=== PATIENT | female | born 1940 | race Caucasian/White ===

== ENCOUNTER → 2019-03-13 14:03 | Outpatient (BNVA) | payer MEDICARE, OTHER, MEDICAID, SELFPAY | PROVIDERS: Family Provider Nurse Practitioner; PCP Nurse Practitioner; Visit Provider Nurse Practitioner Family | DX: N39.0 Urinary tract infection, site not specified (principal); B37.9 Candidiasis, unspecified; N39.41 Urge incontinence | CPT/HCPCS: 81001; 87077; 87086; 87186 ==

== ENCOUNTER → 2019-09-21 15:45 | Outpatient (BNVA) | payer MEDICARE, OTHER, MEDICAID, SELFPAY | PROVIDERS: Family Provider Nurse Practitioner; PCP Nurse Practitioner; Visit Provider Nurse Practitioner | DX: E11.69 Type 2 diabetes mellitus with other specified complication (principal); E66.01 Morbid (severe) obesity due to excess calories; I10 Essential (primary) hypertension; E11.65 Type 2 diabetes mellitus with hyperglycemia | CPT/HCPCS: 80053; 80061; 83036 ==

== ENCOUNTER 2019-10-10 13:12 | Outpatient (CLI) | payer MEDICARE, OTHER, MEDICAID, SELFPAY ==
[2019-10-10] MEDS: iohexol 300 mg/mL 50 mL Btl PO (13:54)
--- NOTE | 2019-10-10 14:30 | CT_ITS ---
WS: [id number] CT ABDOMEN PELVIS TECHNIQUE: Noncontrast CT of the abdomen and pelvis with coronal and sagittal reformatted images. CLINICAL INFORMATION: Left upper abdomen pain COMPARISON: CT abdomen pelvis . Prior MRI , 5 , and 2 . DLP: 1200.[address] scans at [facility] use at least one of these dose optimization techniques: automat ed exposure control; mA and/or kV adjustment per patient size (includes targeted exams where dose is matched to clinical indication); or iterative reconstruction. FINDINGS: Noncontrast liver is normal. Normal noncontrast gallbladder. Noncontrast spleen is unremarkable. Norm al GE junction. Lung bases are well aerated. Noncontrast pancreas is unremarkable. Right adrenal glan d is normal. Stable left adrenal adenoma measuring 2.4 CM. Stable duodenal diverticulum along the uncinate process unchanged since the prior examinations. Nonco ntrast pancreas otherwise unremarkable. Bilateral renal cortical atrophy. Bilateral renal cysts largest in the right measuring 4.8 cm. No hyd ronephrosis. No abdominal lymphadenopathy. Sigmoid diverticulosis. No evidence of acute diverticulitis. Fat-containing umbilical hernia. Mild josemanuel mbar curve convex left. IMPRESSION 1. Stable duodenal diverticulum. Noncontrast pancreas otherwise unremarkable. 2. Stable left adrenal adenoma measuring 2.4 CM. 3. Bilateral renal cortical atrophy with renal cysts. Largest cyst in the right measuring 4.8 cm. 4. No abdominal lymphadenopathy. 5. Incidental fat-containing umbilical hernia. 6. No other significant changes.
== END 2019-10-10 13:13 | disposition home or self-care (01) ==
LOC: RADWPI 13:17
PROVIDERS: Family Provider Nurse Practitioner; PCP Nurse Practitioner; Visit Provider Nurse Practitioner
DX: K57.90 Diverticulosis of intestine, part unspecified, without perforation or abscess without bleeding (principal); D35.02 Benign neoplasm of left adrenal gland; N26.1 Atrophy of kidney (terminal); N28.1 Cyst of kidney, acquired; K42.9 Umbilical hernia without obstruction or gangrene
CPT/HCPCS: 74176; Q9967

== ENCOUNTER → 2019-10-23 11:00 | Outpatient (BNVA) | payer MEDICARE, OTHER, MEDICAID, SELFPAY | PROVIDERS: Family Provider Nurse Practitioner; PCP Nurse Practitioner; Visit Provider Obstetrics & Gynecology | DX: N95.0 Postmenopausal bleeding (principal) | CPT/HCPCS: 88175 ==

== ENCOUNTER → 2019-11-14 14:08 | Outpatient (BNVA) | payer MEDICARE, OTHER, MEDICAID, SELFPAY | PROVIDERS: Family Provider Nurse Practitioner; PCP Nurse Practitioner; Visit Provider Obstetrics & Gynecology | DX: N95.0 Postmenopausal bleeding (principal) | CPT/HCPCS: 76830 ==

== ENCOUNTER → 2020-01-10 13:25 | Outpatient (BNVA) | payer MEDICARE, MEDICAID, SELFPAY | PROVIDERS: Family Provider Nurse Practitioner; PCP Nurse Practitioner; Visit Provider Nurse Practitioner | DX: E11.65 Type 2 diabetes mellitus with hyperglycemia (principal); I10 Essential (primary) hypertension | CPT/HCPCS: 80053; 80061; 83036 ==

== ENCOUNTER 2020-03-27 18:56 | Inpatient (IN) | payer MEDICARE, MEDICAID, SELFPAY ==
--- NOTE | 2020-03-27 19:01 | ECG_ITS ---
[facility] Test Date: 2020-03-27 Pat Name: Rosalva Hyatt Department: Room: Gender: Female Sleep Tech: : 1940 Requested By: Yulia Grady Order Number: [id number] Jluis MD: Jayce Dickson M.D. Measurements Intervals [place] Rate: 47 P: NM: QRS: -23 QRSD: 123 T: 98 QT: 367 QTc: 327 Interpretive Statements Sinus bradycardia with a sinus arrhythmia BORDERLINE LEFT AXIS DEVIATION [QRS AXIS < -20] MODERATE INTRAVENTRICULAR CONDUCTION DELAY [110+ ms QRS DURATION] MINIMAL VOLTAGE CRITERIA FOR LVH, CONSIDER NORMAL VARIANT [MEETS CRITERIA IN ONE OF: R(aVL), S(V1), R(V5), R(V5/V6)+S(V1)] NONSPECIFIC ST & T-WAVE ABNORMALITY No previous ECG available for comparison Electronically Signed On 03-27-2020 20:15:38 OVERHEAD DOOR TECHNICIAN by Jayce Dickson M.D. [id number]
--- NOTE | 2020-03-27 19:01 | XR_ITS ---
WS: [id number] Portable AP upright chest, 03/27/2020 Clinical Data: htn Comparison: Portable chest, 02/08/2018. Findings: No nodules, masses or effusions are seen. The heart is enlarged. The pulmonary vascularity is not increased. No pneumonia or pneumothorax is seen. The aortic arch and descending aorta show baldemar cification and tortuosity. There are monitor leads on the chest wall. XR/XR chest 1V portable [id number] Impression: Cardiomegaly and atherosclerosis.
--- NOTE | 2020-03-27 19:03 | W.ED.WEAKNES ---
HPI - Weakness General: Chief complaint: General Medical Stated complaint: LOW HEARTRATE, ANEMIA Time Seen by Provider: 03/27/20 18:57 Source: patient and EMS Mode of arrival: EMS Limitations: no limitations History of Present Illness: HPI Narrative: 79-year-old female who is here from assisted living states she has billing feeling weak and is concerned she may have anemia. She denies any blood in her stools and has had no vomiting. She states that she had a follow-up visit today with her PCP and she did have some bradycardia. She states she just does not feel quite like herself and feels very weak and is having difficulty walking. She has had swelling in her extremities. Denies any headache or chest pain. MD Complaint: generalized weakness Associated symptoms: Denies chills, dysuria, easy bruising, fever(s), headache(s), nausea or vomiting Review of Systems Const: Denies: fever(s), chills, body aches or change in appetite Eyes: Denies: blurry vision or eye discomfort ENMT: Denies: throat pain or dental pain Card: Reports: lightheadedness Resp: Denies: dyspnea GI: Denies: abdominal pain, nausea, vomiting or diarrhea : Denies: dysuria Musc: Reports: muscle weakness Skin/Breast: Denies: rash Neuro: Denies: headache(s) Psych: Denies: depression Levon/Lymph: Denies: easy bruising All/Imm: Denies: urticaria PFS ED PFSH: Medical History Anxiety and depression Controlled diabetes mellitus with hyperglycemia, without long-term current use of insulin Dependent on walker for ambulation Essential (primary) hypertension Lives in assisted living facility No pertinent past medical history Denies asthma, seizures, bleeding or clotting disorders, DVT/PE. PCP: ROSALVA Mcmillan Surgical History History of colonoscopy 2007 Negative Family History Mother Diabetes Stroke Father Heart disease Sister Breast cancer diagnosed at age 45 Denies family history of Colon cancer Ovarian cancer Hyperlipidemia Hypertension Uterine cancer Thyroid condition Social History Smoking and tobacco status: never smoked Housing: Assisted Living Facility Marital status: / Current gender identity: Female Course Vital Signs: Vital signs: Vital Signs Temperature 97.8 F 03/27/20 19:07 Pulse Rate 51 L 03/27/20 19:07 Respiratory Rate 17 03/27/20 19:07 Blood Pressure 167/84 03/27/20 19:07 Pulse Oximetry 93 03/27/20 19:07 MDM - Weakness MDM Narrative: Medical decision making narrative: Patient presents here with generalized weakness and was found to be in a slow A. fib with bradycardia. I spoke to the hospitalist and will admit to the cardiac stepdown unit. Patient is otherwise stable. Her blood pressure here has been normal. Lab Data: Labs: Lab Results 03/27/20 03/27/20 03/27/20 Range/Units 19:23 19:23 19:23 WBC 6.9 (4.0-10.0) 10^3/ uL RBC 4.44 (4.1-5.3) 10^6/u L Hgb 12.9 (11.5-15.3) g/dL Hct 40.7 (37.0-47.0) % MCV 91.7 (81-99) fL MCH 29.1 (28.0-34.0) pg MCHC 31.7 (30.0-36.0) g/dL RDW 15.5 H (12.1-15.1) % Plt Count 206 (130-400) 10^3/c mm MPV 10.1 (7.4-10.4) fL Neut % (Auto) 74.7 % Lymph % (Auto) 15.7 % [place] % (Auto) 7.0 % Eos % (Auto) 1.5 % Baso % (Auto) 0.7 % Neut # (Auto) 5.14 (1.8-7.7) 10^3/u L Lymph # (Auto) 1.1 (0.8-4.8) 10^3/u L [place] # (Auto) 0.5 (0.2-0.9) 10^3/u L Eos # (Auto) 0.1 (0.0-0.8) 10^3/u L Baso # (Auto) 0.1 (0.0-0.1) 10^3/u L Nucleated RBC % (a uto) 0 % Nucleated RBCs # 0.0 /100WBC PT 13.20 (12.1-14.9) SECO NDS INR 0.97 (0.8-1.2) Sodium 132 L (136-145) mmol/L Potassium 4.5 (3.5-5.1) mmol/L Chloride 95 L (98-107) mmol/L Carbon Dioxide 28 (22-29) mmol/L Anion Gap 13.5 (5-19) BUN 17 (8-23) mg/dL Creatinine 1.0 H (0.5-0.9) mg/dL GFR Calculation Not Reportable Glucose 143 H (65-115) mg/dL Calculated Osmolal ity 278 L (285-295) mOsm/k g Calcium 10.4 (8.5-10.5) mg/dL Total Bilirubin 0.5 (0.15-1.2) mg/dL AST 31 (0-32) U/L ALT 27 (0-33) U/L Alkaline Phosphata se 52 (35-105) IU/L Troponin T Baselin e (0-10) ng/L NT-Pro-B Natriuret Pep 95 (0-450) pg/mL Total Protein 6.9 (6.6-8.7) g/dL Albumin 4.3 (3.5-5.2) g/dL Globulin 2.6 (1.3-4.6) g/dL 03/27/20 Range/Units 19:23 WBC (4.0-10.0) 10^3/ uL RBC (4.1-5.3) 10^6/u L Hgb (11.5-15.3) g/dL Hct (37.0-47.0) % MCV (81-99) fL MCH (28.0-34.0) pg MCHC (30.0-36.0) g/dL RDW (12.1-15.1) % Plt Count (130-400) 10^3/c mm MPV (7.4-10.4) fL Neut % (Auto) % Lymph % (Auto) % [place] % (Auto) % Eos % (Auto) % Baso % (Auto) % Neut # (Auto) (1.8-7.7) 10^3/u L Lymph # (Auto) (0.8-4.8) 10^3/u L [place] # (Auto) (0.2-0.9) 10^3/u L Eos # (Auto) (0.0-0.8) 10^3/u L Baso # (Auto) (0.0-0.1) 10^3/u L Nucleated RBC % (a uto) % Nucleated RBCs # /100WBC PT (12.1-14.9) SECO NDS INR (0.8-1.2) Sodium (136-145) mmol/L Potassium (3.5-5.1) mmol/L Chloride (98-107) mmol/L Carbon Dioxide (22-29) mmol/L Anion Gap (5-19) BUN (8-23) mg/dL Creatinine (0.5-0.9) mg/dL GFR Calculation Glucose (65-115) mg/dL Calculated Osmolal ity (285-295) mOsm/k g Calcium (8.5-10.5) mg/dL Total Bilirubin (0.15-1.2) mg/dL AST (0-32) U/L ALT (0-33) U/L Alkaline Phosphata se (35-105) IU/L Troponin T Baselin e 27 H (0-10) ng/L NT-Pro-B Natriuret Pep (0-450) pg/mL Total Protein (6.6-8.7) g/dL Albumin (3.5-5.2) g/dL Globulin (1.3-4.6) g/dL Imaging Data^: CXR: Attestation: I personally reviewed and interpreted this imaging study as follows: My impression: no acute abnormality EKG Data^: EKG 1: Attestation: I personally reviewed and interpreted this EKG as follows: EKG interpretation date: 03/27/20 EKG interpretation time: 19:16 Interpretation: afib with slow rvr hr [address] or t wave abnormalities qrs 123 qtc 331 Discharge Plan Discharge Patient Disposition: Admitted As Inpatient Clinical Impression: Bradycardia, Atrial fibrillation, Weakness Condition: Stable Coding Level of Care Code 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
[2020-03-27 19:07] VITALS: BP 167/84; PULSE 51; RESP 17; TEMP 36.6; O2SAT 93; BMI 46.9
[2020-03-27 19:58] LABS: Basophils # 0.1 10^3/uL (0.0-0.1); Basophils % 0.7 %; Eosinophils # 0.1 10^3/uL (0.0-0.8); Eosinophils % 1.5 %; Hematocrit 40.7 % (37.0-47.0); Hemoglobin 12.9 g/dL (11.5-15.3); Lymphocytes # 1.1 10^3/uL (0.8-4.8); Lymphocytes % 15.7 %; Mean Corpuscular HGB Conc 31.7 g/dL (30.0-36.0); Mean Corpuscular Hemoglobin 29.1 pg (28.0-34.0); Mean Corpuscular Volume 91.7 fL (81-99); Mean Platelet Volume 10.1 fL (7.4-10.4); Monocytes # 0.5 10^3/uL (0.2-0.9); Neutrophils # 5.14 10^3/uL (1.8-7.7); Neutrophils % 74.7 %; Nucleated Red Blood Cells % 0 %; Platelet Count 206 10^3/cmm (130-400); Red Blood Count 4.44 10^6/uL (4.1-5.3); Red Cell Distribution Width 15.5 % (12.1-15.1); White Blood Count 6.9 10^3/uL (4.0-10.0)
[2020-03-27 20:07] LABS: INR 0.97 (0.8-1.2)
[2020-03-27 20:13] LABS: Troponin(5th) Baseline 27 ng/L (0-10)
[2020-03-27 20:18] LABS: Alanine Aminotransferase 27 U/L (0-33); Albumin Level 4.3 g/dL (3.5-5.2); Alkaline Phosphatase 52 IU/L (35-105); Anion Gap 13.5 (5-19); Aspartate Amino Transferase 31 U/L (0-32); Blood Urea Nitrogen 17 mg/dL (8-23); Calcium 10.4 mg/dL (8.5-10.5); Carbon Dioxide 28 mmol/L (22-29); Chloride 95 mmol/L (98-107); Globulin 2.6 g/dL (1.3-4.6); Glucose 143 mg/dL (65-115); NT Pro B Type Natriuretic Pept 95 pg/mL (0-450); Osmolality Calculated 278 mOsm/kg (285-295); Potassium 4.5 mmol/L (3.5-5.1); Sodium 132 mmol/L (136-145); Total Bilirubin 0.5 mg/dL (0.15-1.2); Total Protein 6.9 g/dL (6.6-8.7)
--- NOTE | 2020-03-27 20:54 | PC.PHAR ---
jose from [facility] states the pt only has am meds today
--- NOTE | 2020-03-27 21:20 | PM.HP ---
Providers/Chief Complaint Admitting Physician: Juan Ramon Sprague Primary Care Provider: ERIKA Jordan Chief Complaint: LOW HEARTRATE, ANEMIA History of Present Illness Rosalva Hyatt is a 79 year old female, morbidly obese, with a history of hypertension, chronic diastolic heart failure was directed from the assisted living facility to the emergency department because her primary care provider noted she has a low heart rate and her conjunctiva was pale. Patient was complaining of nausea. No report of syncope or passing out. Patient at baseline has poor functional performance status, ambulates with a walker. She denied any chest pain. Patient noted to be in atrial fibrillation with slow ventricular rate, heart rate was in the low 50s in the ED. her troponin is mildly elevated to 27. Hemoglobin is normal. Chest x-ray unremarkable. Patient is placed under observation for cardiac monitoring and for cardiology to evaluate. Review of Systems Narrative: Except as documented, all other systems reviewed and negative. Medications/Allergies Home Medications Medication Instructions Recorded Confirmed Last Taken Type dicyclomine 10 mg capsule 10 mg PO BID@0803/08/19 03/27/20 03/27/20 08:00 History dextromethorphan-guaifenesin 10 10 ml PO Q4H PRN 03/10/19 03/27/20 Unknown History mg-100 mg/5 mL oral liquid mupirocin 2 % topical ointment See Rx Instructions .ROUTE .COMPLEX 03/10/19 03/27/20 Unknown History omeprazole 20 mg capsule,delayed 20 mg PO DAILY@08 cap 03/10/19 03/27/20 03/27/20 History release triamcinolone acetonide 0.1 % 1 applic TOPICAL BID PRN 03/10/19 03/27/20 Unknown History topical cream cefdinir 300 mg capsule 300 mg PO Q12H #60 cap 03/17/19 03/27/20 03/27/20 08:00 Rx acetaminophen 500 mg tablet 500 - 1,000 mg PO Q4H PRN MDD 03/29/19 03/27/20 Unknown History 3000mg lisinopril 20 mg tablet 20 mg PO DAILY@08 tab 05/07/19 03/27/20 03/27/20 08:00 History pymoqeovmx-jqzhfljzvf-ucbj See Rx Instructions TOPICAL 06/18/19 03/27/20 03/27/20 08:00 Rx vera-vits A,D,and E 20 %-3 % .COMPLEX #28 gm topical cream docosanol 10 % topical cream 1 applic TOPICAL .every 2 hours 08/26/19 03/27/20 Unknown Rx PRN #2 gm furosemide 20 mg tablet 20 mg PO DAILY PRN #60 tab 10/07/19 03/27/20 Unknown Rx aluminum-mag hydroxide-simethicone 10 - 20 ml PO QID PRN 10/23/19 03/27/20 Unknown History 200 mg-200 mg-20 mg/5 mL oral susp carboxymethylcellulose sodium 0.5 1 drop OPHTHALMIC (EYE) TID PRN 10/23/19 03/27/20 03/27/20 08:00 History % eye drops cholestyramine (with sugar) 4 gram See Rx Instructions .ROUTE 10/23/19 03/27/20 Unknown History oral powder .COMPLEX gm hydrocortisone 2.5 % topical cream 1 applic NM DAILY PRN 10/23/19 03/27/20 Unknown History with perineal applicator Fish Oil 1 cap PO BID@08,20 03/27/20 03/27/20 03/27/20 08:00 History Lactobacillus acidoph-pectin 1 cap PO BID@08,20 03/27/20 03/27/20 03/27/20 08:00 History [Acidophilus-Pectin] Probiotic 1 cap PO BID@08,03/27/20 03/27/20 03/27/20 08:00 History Prozac 20 mg PO BID@08,20 03/27/20 03/27/20 03/27/20 08:00 History Xlear Sinus Spr Care See Rx Instructions .ROUTE .COMPLEX 03/27/20 03/27/20 Unknown History buspirone 10 mg PO BID@08,20 03/27/20 03/27/20 03/27/20 08:00 History camphor-menthol [Sarna Original] See Rx Instructions .ROUTE .COMPLEX 03/27/20 03/27/20 03/27/20 08:00 History estradiol See Rx Instructions .ROUTE .COMPLEX 03/27/20 03/27/20 Unknown History hydrocodone-acetaminophen 1 tab PO QID PRN MDD 3000mg from 03/27/20 03/27/20 03/27/20 09:00 History all sources hydrocortisone 1 applic TOPICAL BID PRN 03/27/20 03/27/20 Unknown History multivitamin with minerals 1 tab PO DAILY@08 03/27/20 03/27/20 03/27/20 08:00 History [Hair,Skin and Nails] nystatin 1 applic TOPICAL BID@08,03/27/20 03/27/20 Unknown History nystatin [Nyamyc] 1 applic TOPICAL BID@,03/27/20 03/27/20 Unknown History pramoxine [Sarna Sensitive] See Rx Instructions .ROUTE .COMPLEX 03/27/20 03/27/20 Unknown History semaglutide [Ozempic] 0.25 mg SUBCUT Q7D 03/27/20 03/27/20 03/27/20 History zonisamide 50 mg PO BID@,03/27/20 03/27/20 03/27/20 08:00 History Allergies Allergy/AdvReac Type Severity Reaction Status Date / Time celecoxib [From Celebrex] Allergy DIARRHEA Verified 03/27/20 19:11 ciprofloxacin [From Cipro] Allergy RASH,ITCHIN Verified 03/27/20 19:11 G lidocaine Allergy Itching Verified 03/27/20 19:11 meloxicam [From Mobic] Allergy NA Verified 03/27/20 19:11 penicillin G Allergy Hives Verified 03/27/20 19:11 nitrofurantoin AdvReac Unknown unknown Verified 03/27/20 19:11 [From Macrobid] tolterodine [From Detrol] AdvReac unknown Verified 03/27/20 19:11 PFSH Acute PFSH: Medical History Anxiety and depression Controlled diabetes mellitus with hyperglycemia, without long-term current use of insulin Dependent on walker for ambulation Essential (primary) hypertension Lives in assisted living facility No pertinent past medical history Denies asthma, seizures, bleeding or clotting disorders, DVT/PE. PCP: ROSALVA Mcmillan Surgical History History of colonoscopy 2007 Negative Family History Mother Diabetes Stroke Father Heart disease Sister Breast cancer diagnosed at age 45 Denies family history of Colon cancer Ovarian cancer Hyperlipidemia Hypertension Uterine cancer Thyroid condition Social History Smoking and tobacco status: never smoked Housing: Assisted Living Facility Marital status: / Current gender identity: Female Vitals/I&O/Wt Last Vital Signs Temp 97.8 F 03/27/20 19:07 Pulse 51 L 03/27/20 19:07 Resp 17 03/27/20 19:07 BP 167/84 03/27/20 19:07 Pulse Ox 93 03/27/20 19:07 Weight last 48 hrs Weight 127.913 kg Physical Exam Const: COMMON NORMALS: no acute distress, patient oriented x3 and alert NUTRITIONAL APPEARANCE: obese HENMT: COMMON NORMALS: normocephalic and atraumatic MOUTH: Normal oral and palatal mucosa present Eye: COMMON NORMALS: Equal, round and reactive pupils present, EOMs intact bilaterally, conjunctivae normal and no scleral icterus Neck/C-Spine: COMMON NORMALS: full ROM, no lymphadenopathy, supple and no JVD Lymph: LYMPHATIC: no lymphadenopathy noted Chest: COMMONS NORMALS: normal inspection of the chest and normal palpation of entire chest wall Resp: COMMON NORMALS: normal respiratory effort, No use of accessory muscles and clear to auscultation bilaterally Cardio: COMMON NORMALS: S1 normal heart sound present and S2 normal heart sound present RATE: bradycardic RHYTHM: abnormal rhythm irregularly irregular GI: COMMON NORMALS: Soft to palpation, non-tender and No hepatosplenomegaly present : COMMON NORMALS: Yes no CVA tenderness Back/Pelvis: COMMON NORMALS: thoraco-lumbar ROM normal Extremity: COMMON NORMALS: capillary refill normal GENERAL: Yes edema (1+ bilateral lower extremity edema) Neuro: COMMON NORMALS: patient oriented x3, CN's II-XII intact bilaterally and no focal motor deficits Psych: COMMON NORMALS: mental status grossly normal, Normal thought process present, cooperative and speech normal Skin: COMMON NORMALS: no rashes or lesions noted, turgor normal and no jaundice Data : 03/28/20 00:52 03/28/20 00:52 A&P Assessment and plan (1) Bradycardia: Status: Acute (2) Atrial fibrillation: Status: Acute (3) Controlled diabetes mellitus with hyperglycemia, without long-term current use of insulin: Status: Chronic Qualifiers: Diabetes mellitus type: type 2 Qualified Code(s): E11.65 - Type 2 diabetes mellitus with hyperglycemia (4) Essential (primary) hypertension: Status: Chronic Additional A&P Information Placed under observation. Telemetry. Obtain echocardiogram. Cardiology consult. Atrial fibrillation with slow ventricular response. Trend troponin. Start aspirin. Anticoagulation per cardiology recommendation. Continue home medications for other chronic medical problems. Insulin sliding scale for glucose management. Attestations Medical Necessity Statement*: Patient presenting with new onset atrial fibrillation with controlled ventricular rate. She will need to be hospitalized for cardiac monitoring and to be evaluated by cardiology. She is expected to spend less than 2 midnights. Time Spent in Patient Care: 64 Coding Level of Care Code Acute Sap Portal Architect for [facility] Fwd Exam Comprehensive Diagnoses Bradycardia R00.1 Atrial fibrillation I48.91 Controlled diabetes mellitus with hyperglycemia, without long-term current use of insulin E11.65 Diabetes mellitus type: type 2 Essential (primary) hypertension I10
[2020-03-27 21:30] VITALS: BP 157/70; PULSE 53; RESP 14; O2SAT 94
[2020-03-27 21:47] LABS: Add Urine Microscopic? YES; Bilirubin Urine Neg (Negative); Blood Urine Neg (Negative); Glucose Urine UA Norm (Normal); Ketones Urine Negative (Negative); Leukocyte Esterase Urine Negative (Negative); Nitrate Urine Negative (Negative); Protein Urine Neg (Negative); Urine Appearance Hazy (CLEAR); Urine Color Yellow (Yellow); Urobilinogen Urine Norm (Negative); pH Urine 6.5 (5-7)
[2020-03-27 21:51] VITALS: PULSE 59
[2020-03-27 21:51] LABS: Troponin 5 2HR 27.58 ng/L (0-10); Troponin 5 2HR Delta 0.58 ABS# (0-10)
[2020-03-27 22:18] LABS: Glucose Point of Care 137 mg/dL (70-110)
[2020-03-27 22:24] LABS: Add Urine Culture? No; Amorphous Sediment Urine 3+ /hpf; RBC Urine 0-4 /hpf (0-2); Squamous Epithelial Cell Urine 0-4 /hpf (0-5)
[2020-03-27 22:25] VITALS: BP 175/75; PULSE 60; RESP 18; TEMP 36.8; O2SAT 93
[2020-03-27 22:34] LABS: Bacteria Urine TRACE /hpf
[2020-03-27] MEDS: enoxaparin 40 mg/0.4 mL Syringe SUBCUT (22:45)
[2020-03-27] MEDS: famotidine 20 mg/2 mL INJ IVP (22:46)
[2020-03-27] MEDS: cefdinir 300 MG CAPSULE PO (22:46)
--- NOTE | 2020-03-28 01:01 | ECG_ITS ---
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 Trimmer: : 1940 Requested By: Yulia Grady Order Number: [id number] Reading MD: KENN GONZALEZ Measurements Intervals [place] Rate: 50 P: OR: QRS: -28 QRSD: 125 T: 105 QT: 406 QTc: 371 Interpretive Statements ATRIAL FIBRILLATION WITH SLOW VENTRICULAR RESPONSE BORDERLINE LEFT AXIS DEVIATION [QRS AXIS < -20] MODERATE INTRAVENTRICULAR CONDUCTION DELAY [110+ ms QRS DURATION] NONSPECIFIC ST & T-WAVE ABNORMALITY Compared to ECG 03/27/2020 19:16:39 Sinus bradycardia no longer present Sinus arrhythmia no longer present T-wave abnormality still present Electronically Signed On 03-30-2020 21:35:46 MANAGER DOCUMENT CONTROL by KENN GONZALEZ [id number]
[2020-03-28 01:09] LABS: Basophils # 0.1 10^3/uL (0.0-0.1); Basophils % 0.8 %; Eosinophils # 0.1 10^3/uL (0.0-0.8); Eosinophils % 1.5 %; Hematocrit 38.8 % (37.0-47.0); Hemoglobin 12.2 g/dL (11.5-15.3); Lymphocytes # 1.5 10^3/uL (0.8-4.8); Lymphocytes % 19.9 %; Mean Corpuscular HGB Conc 31.4 g/dL (30.0-36.0); Mean Corpuscular Hemoglobin 29.2 pg (28.0-34.0); Mean Corpuscular Volume 92.8 fL (81-99); Mean Platelet Volume 9.7 fL (7.4-10.4); Monocytes # 0.7 10^3/uL (0.2-0.9); Monocytes % 8.9 %; Neutrophils # 5.06 10^3/uL (1.8-7.7); Neutrophils % 68.5 %; Nucleated Red Blood Cells % 0 %; Platelet Count 200 10^3/cmm (130-400); Red Blood Count 4.18 10^6/uL (4.1-5.3); Red Cell Distribution Width 15.7 % (12.1-15.1); White Blood Count 7.4 10^3/uL (4.0-10.0)
[2020-03-28 01:47] LABS: Troponin 5 6HR 27.48 ng/L (0-10); Troponin 5 6HR Delta 0.48 ng/L (0-12)
[2020-03-28 01:55] LABS: Anion Gap 11.3 (5-19); Blood Urea Nitrogen 16 mg/dL (8-23); Calcium 9.7 mg/dL (8.5-10.5); Carbon Dioxide 29 mmol/L (22-29); Chloride 97 mmol/L (98-107); Glucose 109 mg/dL (65-115); Osmolality Calculated 278 mOsm/kg (285-295); Potassium 4.3 mmol/L (3.5-5.1); Sodium 133 mmol/L (136-145); Thyroid Stimulating Hormone 47.44 uIU/mL (0.27-4.20)
--- NOTE | 2020-03-28 03:40 | PC.NURSE ---
DAUGHTER CONTACT Annia LOYD [phone] [place], [place] LIVES WITH ANALY PORTILLO [phone] [place], [place]
[2020-03-28 04:08] VITALS: BP 146/76; PULSE 78; RESP 18; TEMP 36.6; O2SAT 99
[2020-03-28 06:33] LABS: Glucose Point of Care 117 mg/dL (70-110)
--- NOTE | 2020-03-28 07:00 | USCV_ITS ---
Olena Rosalva Age: 79 Gender: F : 1940 Exam Date: 03/28/2020 15:30 Ordering Phys: Juan Ramon Sprague MD Technologist: Akin Avila [place] [facility] [place]: CHF BP: 132 / 72 HR: 46 Rhythm: Sinus Technical Quality: Poor MEASUREMENTS (Male / Female) Normal Values 2D ECHO LV Diastolic Diameter PLAX 4.1 cm 4.2 - 5.9 / 3.9 - 5.3 cm LV Systolic Diameter PLAX 2.8 cm IVS Diastolic Thickness 1.4 cm 0.6 - 1.0 / 0.6 - 0.9 cm IVS Systolic Thickness 1.8 cm LVPW Diastolic Thickness 1.2 cm 0.6 - 1.0 / 0.6 - 0.9 cm LVPW Systolic Thickness 1.6 cm LVOT Diameter 2.1 cm LV Ejection Fraction 2D Teich 61.8 % LV Ejection Fraction MOD 2C 52.1 % LV Ejection Fraction 2C AL 51.9 % LA Diameter 4.6 cm LA Width 3.9 cm LA Height 6.3 cm RA Width 4.0 cm RA Height 5.2 cm Aorta at Sinotubular Diameter 2.5 cm M-MODE LV Diastolic Diameter MM 5.2 cm 4.2 - 5.9 / 3.9 - 5.3 cm LV Systolic Diameter MM 4.3 cm LV Ejection Fraction MM Teich 33.2 % IVS Diastolic Thickness MM 1.4 cm 0.6 - 1.0 / 0.6 - 0.9 cm IVS Systolic Thickness MM 1.8 cm LVPW Diastolic Thickness MM 1.0 cm 0.6 - 1.0 / 0.6 - 0.9 cm LVPW Systolic Thickness MM 1.8 cm RV Diastolic Diameter MM 2.1 cm Aortic Annulus Diameter 3.4 cm LA Ao Ratio MM 1.5 MV E Point Septal Separation 1.8 cm DOPPLER AV Peak Velocity 137.0 cm/s LVOT Peak Velocity 95.0 cm/s AV Area Cont Eq vti 2.0 cm squared AV Area Cont Eq pk 2.3 cm squared MV Area PHT 5.0 cm squared Mitral E to A Ratio 1.4 MV E' Velocity 39.5 cm/s Mitral E to MV E' Ratio 7.3 Mitral E to LV E' Lateral Ratio 6.0 Mitral E to LV E' Septal Ratio 9.5 TR Peak Velocity 165.0 cm/s TR Peak Gradient 10.9 mmHg TV Peak E Velocity 106.0 cm/s Right Atrial Pressure 3.0 mmHg Pulmonary Artery Systolic Pressu 13.9 mmHg PV Peak Velocity 119.0 cm/s RV Acceleration Time 0.1 s FINDINGS Left Ventricle Poor quality images. Grossly LV systolic function is normal. Diastolic function is indeterminate because of atrial fibrillation. Right Ventricle Grossly normal. Right Atrium Not well-visualized. Left Atrium The left atrium appears to be enlarged. Mitral Valve Grossly normal. Aortic Valve Not well-visualized. No significant aortic stenosis or regurgitation is seen. Tricuspid Valve Not well-visualized. Pulmonic Valve Not well-visualized. Pericardium Normal pericardium without effusion. Aorta Normal ascending aorta dimension. CONCLUSIONS This is a limited quality echocardiogram with poor visualization of cardiac structures. LV systolic function is grossly normal. Diastolic function is indeterminate because of atrial fibrillation. Valvular structures are not well visualized however no gross abnormalities. No comparison studies are available. Poncho Kuhn MD (Electronically Signed) Final Date: 28 March 2020 18:58 S
[2020-03-28 08:00] VITALS: BP 166/69; PULSE 63; RESP 18; TEMP 36.8; O2SAT 95
[2020-03-28] MEDS: fluoxetine 20 mg Capsule PO ×2 (09:19→20:19)
[2020-03-28] MEDS: dicyclomine 10 mg Capsule PO ×2 (09:19→20:16)
[2020-03-28] MEDS: cefdinir 300 MG CAPSULE PO ×2 (09:19→20:51)
[2020-03-28] MEDS: lisinopril 20 mg Tablet PO (09:20)
[2020-03-28] MEDS: BuSPIRONE 10 mg Tablet PO ×2 (09:20→20:14)
[2020-03-28] MEDS: pantoprazole DR 40 mg Tablet PO (09:20)
[2020-03-28] MEDS: multivitamin therapeutic Tablet 1 TAB PO (09:21)
[2020-03-28] MEDS: nystatin powder 15 gm Btl 1 APPLIC TOPICAL ×2 (09:21→20:28)
[2020-03-28] MEDS: mupirocin oint 22 gm 1 APPLIC TOPICAL ×2 (09:21→18:10)
[2020-03-28] MEDS: nystatin cream 30 gm 1 APPLIC TOPICAL ×2 (09:23→20:28)
[2020-03-28] MEDS: famotidine 20 mg/2 mL INJ IVP ×2 (09:25→21:49)
--- NOTE | 2020-03-28 10:42 | PC.CHAP ---
Pastoral Care Encounter/Spiritual Assessment Type of Contact [] Declined inspector plating visit [] Patient/Family/Request visit [] Outpatient visit [] Follow-up visit [] Physician referral [] Code/Alert [x] Routine visit [] Staff referral [] Actively dying [] Patient sleeping [] Family support [] [] Out of room [] Palliative care [] [x] Receiving care in room [] Pre-surgical visit [] Trauma [x] Long length of stay [] ICU visit [] Other: Relational/Emotional Strength [x] Patient feels connected with others/family/visitors/staff [] Distress [] Loneliness/isolation [] Abandonment Spirituality of Patient [x] Person of Suly [] Attends Pentecostal of their Suly [x] Believes in Prayer [] Reads Bible or Yazidi materials [] There are Spiritual issues to be addressed Cable Worker Helper Interventions [x] Prayer [x] Active listening [x] Non-anxious presence [x] Spiritual/emotional support [] Crisis/trauma care [x] Spiritual counseling [] Bereavement support [] Provided bereavement packet [] Provided Bible/devotional materials [] Provided toy/stuffed animal, coloring book to patient or family member [] Provided Communion [] Anointing/[place] [] Salvation [x] Completed spiritual assessment [] Other: Impact on Illness or Injury [] Angry [] Fearful [x] Anxious [] Often cries [] Exhaustion [] Unable to work [] Unable to attend judaism [] Unable to walk/stand [] Unable to read [] Unable to drive [] Unable to eat/drink [] Unable to sleep [] Unable to be with family [] Patient intubated [] Other: Summary Senior fpc 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
[2020-03-28 11:48] VITALS: BP 120/60; PULSE 55; RESP 16; TEMP 36.8; O2SAT 97
[2020-03-28 12:09] LABS: Glucose Point of Care 130 mg/dL (70-110)
[2020-03-28 15:29] VITALS: BP 146/64; PULSE 51; RESP 17; TEMP 37.5; O2SAT 97
[2020-03-28 16:33] LABS: Glucose Point of Care 148 mg/dL (70-110)
--- NOTE | 2020-03-28 17:54 | PM.PN ---
Subjective Subjective: Interval history: Patient presents with generalized weakness and not feeling well since last year. She was noted to be in atrial fibrillation with slow ventricular response. Patient reports that she has been bradycardic for many years with heart rate in the 40s to 50s and she was able to function well with that. She has chronic episodes of urinary tract infection and she was recently evaluated for vaginal/rectal prolapse repair. She was noted to have significantly elevated TSH. She reports taking antibiotic daily for UTI prevention. Reports that she gained significant weight lately. Vitals/I&O/Wt Last Vital Signs Temp 99.5 F 03/28/20 15:29 Pulse 51 L 03/28/20 15:29 Resp 17 03/28/20 15:29 BP 146/64 03/28/20 15:29 Pulse Ox 97 03/28/20 15:29 03/28/20 03/28/20 03/28/20 06:59 14:59 22:59 Intake Total 240 / 240 Output Total 0 / 0 Balance 0 / 0 240 / 240 Weight last 48 hrs Weight 133.039 kg Weight 127.913 kg Physical Exam Const: COMMON NORMALS: no acute distress and patient oriented x3 Resp: COMMON NORMALS: normal respiratory effort and clear to auscultation bilaterally AUSCULTATION: clear to auscultation bilaterally Cardio: RHYTHM: abnormal rhythm irregularly irregular OTHER: No lower extremity edema GI: COMMON NORMALS: Normal to inspection, nondistended, normoactive bowel sounds present, Soft to palpation and non-tender PALPATION: Yes Soft to palpation Neuro: COMMON NORMALS: patient oriented x3 and no focal motor deficits Data : 03/28/20 00:52 03/28/20 00:52 A&P Assessment and plan (1) Bradycardia: Asymptomatic, chronic Status: Acute (2) Atrial fibrillation: With a slow ventricular response. Status: Acute (3) Controlled diabetes mellitus with hyperglycemia, without long-term current use of insulin: Status: Chronic Qualifiers: Diabetes mellitus type: type 2 Qualified Code(s): E11.65 - Type 2 diabetes mellitus with hyperglycemia (4) Essential (primary) hypertension: Status: Chronic (5) Hypothyroidism: Status: Acute (6) Morbid obesity with BMI of 45.0-49.9, adult: Status: Acute (7) Weakness: Status: Acute Additional A&P Information PLAN: Patient is very weak to be discharged home. Initiate levothyroxine and awaiting echocardiogram. No dinesh blocking agents will be initiated. At this point I do not think inpatient cardiology consultation needed. Request physical therapy Since patient stay will cross 2 midnights I will change admission status to inpatient. Discussed with patient's granddaughter and updated. Attestations Medical Necessity Statement*: Patient with hypothyroidism as well as atrial fibrillation with slow ventricular response requires close inpatient monitoring, treatment and evaluation. Time Spent in Patient Care: 16 - 35 minutes Coding Level of Care Code Acute Pattern Chain Maker Supervisor for Chg Fwd Diagnoses Bradycardia R00.1 Atrial fibrillation I48.91 Controlled diabetes mellitus with hyperglycemia, without long-term current use of insulin E11.65 Diabetes mellitus type: type 2 Essential (primary) hypertension I10 Hypothyroidism E03.9 Morbid obesity with BMI of 45.0-49.9, adult E66.01; Z68.42 Weakness R53.1
[2020-03-28 20:00] VITALS: BP 154/72; PULSE 48; RESP 19; TEMP 37.3; O2SAT 96
[2020-03-28] MEDS: levothyroxine 100 mcg Tablet 200 MCG PO (20:13)
[2020-03-28] MEDS: lactobacillus 1 Tablet 1 TAB PO (20:19)
[2020-03-28] MEDS: omega-3 fatty acids 1,000 mg Capsule 1 MG PO (20:21)
[2020-03-28 20:46] LABS: Glucose Point of Care 164 mg/dL (70-110)
[2020-03-28] MEDS: enoxaparin 40 mg/0.4 mL Syringe SUBCUT (20:51)
[2020-03-29] VITALS: BP 119/62; PULSE 50; RESP 17; TEMP 36.5; O2SAT 96
[2020-03-29 04:00] VITALS: BP 106/66; PULSE 42; RESP 17; TEMP 36.6; O2SAT 97
[2020-03-29 06:50] LABS: Glucose Point of Care 129 mg/dL (70-110)
[2020-03-29 07:46] VITALS: BP 141/64; PULSE 46; RESP 17; TEMP 36.8; O2SAT 96
[2020-03-29] MEDS: BuSPIRONE 10 mg Tablet PO ×2 (08:35→20:48)
[2020-03-29] MEDS: multivitamin therapeutic Tablet 1 TAB PO (08:35)
[2020-03-29] MEDS: fluoxetine 20 mg Capsule PO ×2 (08:35→20:48)
[2020-03-29] MEDS: levothyroxine 100 mcg Tablet 200 MCG PO (08:35)
[2020-03-29] MEDS: pantoprazole DR 40 mg Tablet PO (08:35)
[2020-03-29] MEDS: lisinopril 20 mg Tablet PO (08:35)
[2020-03-29] MEDS: dicyclomine 10 mg Capsule PO ×2 (08:36→20:48)
[2020-03-29] MEDS: lactobacillus 1 Tablet 1 TAB PO ×2 (08:36→20:48)
[2020-03-29] MEDS: mupirocin oint 22 gm 1 APPLIC TOPICAL ×2 (08:38→19:24)
[2020-03-29] MEDS: nystatin cream 30 gm 1 APPLIC TOPICAL (08:38)
[2020-03-29] MEDS: nystatin powder 15 gm Btl 1 APPLIC TOPICAL ×2 (08:38→20:50)
[2020-03-29] MEDS: famotidine 20 mg/2 mL INJ IVP ×2 (08:40→22:18)
[2020-03-29] MEDS: omega-3 fatty acids 1,000 mg Capsule 1000 MG PO ×2 (08:44→20:48)
--- NOTE | 2020-03-29 11:09 | PM.PN ---
Subjective Subjective: Interval history: Patient reports feeling better this morning. She requires assistance to get up. She was able to stand still holding walker for some time until she was bathed. Vitals/I&O/Wt Last Vital Signs Temp 98.2 F 03/29/20 07:46 Pulse 46 L 03/29/20 07:46 Resp 17 03/29/20 07:46 BP 141/64 03/29/20 07:46 Pulse Ox 96 03/29/20 07:46 03/28/20 03/29/20 03/29/20 22:59 06:59 14:59 Intake Total 480 / 720 360 / 360 Balance 480 / 720 360 / 360 Weight last 48 hrs Weight 130.499 kg Weight 133.039 kg Weight 127.913 kg Physical Exam Const: COMMON NORMALS: no acute distress and patient oriented x3 Resp: COMMON NORMALS: normal respiratory effort and clear to auscultation bilaterally AUSCULTATION: clear to auscultation bilaterally Cardio: RHYTHM: abnormal rhythm irregularly irregular OTHER: No lower extremity edema GI: COMMON NORMALS: Normal to inspection, nondistended, normoactive bowel sounds present, Soft to palpation and non-tender PALPATION: Yes Soft to palpation Neuro: COMMON NORMALS: patient oriented x3 and no focal motor deficits Data : 03/28/20 00:52 03/28/20 00:52 A&P Assessment and plan (1) Bradycardia: Asymptomatic, chronic Status: Acute (2) Atrial fibrillation: With a slow ventricular response. Status: Acute (3) Controlled diabetes mellitus with hyperglycemia, without long-term current use of insulin: Status: Chronic Qualifiers: Diabetes mellitus type: type 2 Qualified Code(s): E11.65 - Type 2 diabetes mellitus with hyperglycemia (4) Essential (primary) hypertension: Status: Chronic (5) Hypothyroidism: Status: Acute (6) Morbid obesity with BMI of 45.0-49.9, adult: Status: Acute (7) Weakness: Status: Acute Additional A&P Information PLAN: Continue levothyroxine. Awaiting PT evaluation and if patient continues to improve we will likely be able to dismiss patient home with home health versus arrange placement in nursing facility. Attestations Medical Necessity Statement*: Patient with hypothyroidism and atrial fibrillation with slow ventricular response requires close inpatient monitoring and treatment until deemed safe for discharge. Coding Level of Care Code Acute Plate Maker Zinc for Bri Fwjustin Diagnoses Bradycardia R00.1 Atrial fibrillation I48.91 Controlled diabetes mellitus with hyperglycemia, without long-term current use of insulin E11.65 Diabetes mellitus type: type 2 Essential (primary) hypertension I10 Hypothyroidism E03.9 Morbid obesity with BMI of 45.0-49.9, adult E66.01; Z68.42 Weakness R53.1
[2020-03-29 11:16] VITALS: BP 148/65; PULSE 57; RESP 17; TEMP 36.4; O2SAT 97
[2020-03-29] MEDS: cefdinir 300 MG CAPSULE PO ×2 (11:23→22:54)
[2020-03-29 11:46] LABS: Glucose Point of Care 184 mg/dL (70-110)
--- NOTE | 2020-03-29 13:35 | PC.CHAP ---
Pastoral Care Encounter/Spiritual Assessment Type of Contact [] Declined judicial administrative assistant visit [] Patient/Family/Request visit [] Outpatient visit [] Follow-up visit [] Physician referral [] Code/Alert [] Routine visit [] Staff referral [] Actively dying [] Patient sleeping [] Family support [] [] Out of room [] Palliative care [] [xx] Receiving care in room [] Pre-surgical visit [] Trauma [] Long length of stay [] ICU visit [xx ] Other: Dr and therapist present with patient. Follow up needed. Relational/Emotional Strength [] Patient feels connected with others/family/visitors/staff [] Distress [] Loneliness/isolation [] Abandonment Spirituality of Patient [] Person of Suly [] Attends Temple of their Suly [] Believes in Prayer [] Reads Bible or Yazidi materials [] There are Spiritual issues to be addressed Sap Pi Developer Interventions [] Prayer [] Active listening [] Non-anxious presence [] Spiritual/emotional support [] Crisis/trauma care [] Spiritual counseling [] Bereavement support [] Provided bereavement packet [] Provided Bible/devotional materials [] Provided toy/stuffed animal, coloring book to patient or family member [] Provided Communion [] Anointing/[place] [] Salvation [] Completed spiritual assessment [] Other: Impact on Illness or Injury [] Angry [] Fearful [] Anxious [] Often cries [] Exhaustion [] Unable to work [] Unable to attend sabianist [] Unable to walk/stand [] Unable to read [] Unable to drive [] Unable to eat/drink [] Unable to sleep [] Unable to be with family [] Patient intubated [] Other: Summary Time spent with patient 2
[2020-03-29 16:00] VITALS: BP 148/68; PULSE 86; RESP 16; TEMP 36.6; O2SAT 100
[2020-03-29 17:13] LABS: Glucose Point of Care 119 mg/dL (70-110)
[2020-03-29 19:49] VITALS: BP 145/74; PULSE 58; RESP 18; TEMP 36.4; O2SAT 91
[2020-03-29 21:38] LABS: Glucose Point of Care 169 mg/dL (70-110)
[2020-03-29] MEDS: enoxaparin 40 mg/0.4 mL Syringe SUBCUT (22:54)
[2020-03-30] VITALS: BP 116/58; PULSE 45; RESP 20; TEMP 36.7; O2SAT 97
[2020-03-30 04:00] VITALS: BP 123/71; PULSE 47; RESP 19; TEMP 36.9; O2SAT 97
[2020-03-30 07:09] LABS: Glucose Point of Care 121 mg/dL (70-110)
[2020-03-30 08:00] VITALS: BP 150/67; PULSE 61; RESP 18; TEMP 36.4; O2SAT 96
[2020-03-30] MEDS: cefdinir 300 MG CAPSULE PO ×2 (09:13→21:20)
[2020-03-30] MEDS: BuSPIRONE 10 mg Tablet PO ×2 (09:13→21:06)
[2020-03-30] MEDS: fluoxetine 20 mg Capsule PO ×2 (09:14→21:06)
[2020-03-30] MEDS: levothyroxine 100 mcg Tablet 200 MCG PO (09:14)
[2020-03-30] MEDS: multivitamin therapeutic Tablet 1 TAB PO (09:14)
[2020-03-30] MEDS: omega-3 fatty acids 1,000 mg Capsule 1000 MG PO ×2 (09:14→21:06)
[2020-03-30] MEDS: pantoprazole DR 40 mg Tablet PO (09:14)
[2020-03-30] MEDS: lisinopril 20 mg Tablet PO (09:14)
[2020-03-30] MEDS: dicyclomine 10 mg Capsule PO ×2 (09:14→21:06)
[2020-03-30] MEDS: lactobacillus 1 Tablet 1 TAB PO ×2 (09:15→21:05)
[2020-03-30] MEDS: nystatin powder 15 gm Btl 1 APPLIC TOPICAL ×2 (09:15→21:06)
[2020-03-30] MEDS: nystatin cream 30 gm 1 APPLIC TOPICAL ×2 (09:16→21:07)
[2020-03-30] MEDS: mupirocin oint 22 gm 1 APPLIC TOPICAL (09:17)
[2020-03-30] MEDS: famotidine 20 mg/2 mL INJ IVP ×2 (09:20→22:08)
[2020-03-30 09:59] LABS: Basophils # 0.1 10^3/uL (0.0-0.1); Eosinophils # 0.1 10^3/uL (0.0-0.8); Eosinophils % 1.6 %; Hematocrit 40.1 % (37.0-47.0); Hemoglobin 12.3 g/dL (11.5-15.3); Lymphocytes # 1.1 10^3/uL (0.8-4.8); Lymphocytes % 17.3 %; Mean Corpuscular HGB Conc 30.7 g/dL (30.0-36.0); Mean Corpuscular Volume 94.6 fL (81-99); Mean Platelet Volume 9.7 fL (7.4-10.4); Monocytes # 0.5 10^3/uL (0.2-0.9); Monocytes % 8.4 %; Neutrophils # 4.47 10^3/uL (1.8-7.7); Neutrophils % 71.1 %; Nucleated Red Blood Cells % 0 %; Platelet Count 198 10^3/cmm (130-400); Red Blood Count 4.24 10^6/uL (4.1-5.3); Red Cell Distribution Width 15.9 % (12.1-15.1); White Blood Count 6.3 10^3/uL (4.0-10.0)
[2020-03-30 10:40] LABS: Alanine Aminotransferase 25 U/L (0-33); Albumin Level 3.9 g/dL (3.5-5.2); Alkaline Phosphatase 46 IU/L (35-105); Anion Gap 12.6 (5-19); Aspartate Amino Transferase 24 U/L (0-32); Blood Urea Nitrogen 27 mg/dL (8-23); Calcium 10.2 mg/dL (8.5-10.5); Carbon Dioxide 29 mmol/L (22-29); Chloride 96 mmol/L (98-107); Globulin 2.9 g/dL (1.3-4.6); Glucose 168 mg/dL (65-115); Osmolality Calculated 285 mOsm/kg (285-295); Potassium 4.6 mmol/L (3.5-5.1); Sodium 133 mmol/L (136-145); Thyroid Stimulating Hormone 44.67 uIU/mL (0.27-4.20); Total Bilirubin 0.6 mg/dL (0.15-1.2); Total Protein 6.8 g/dL (6.6-8.7)
[2020-03-30 11:54] VITALS: BP 125/63; PULSE 42; RESP 18; TEMP 36.5; O2SAT 94
[2020-03-30 12:05] LABS: Glucose Point of Care 193 mg/dL (70-110)
--- NOTE | 2020-03-30 13:22 | P.PN_ITS ---
Subjective Subjective: Interval history: Patient initially told me that she is doing well and does not have any complaints. When I talked to her about plans for discharge back to nursing facility she reports that she is now short of breath. Apparently she has frequent episodes of urinary incontinence. She was given an option by Dr. Sánchez to see urogynecologist for pessary fitting versus surgery and patient said that she will need to think. She still did not make her mind. She told me that she does not want to go back to her residence because they have no dietitian and that she is allergic to onions which cause her to have diarrhea and they do not serve consistent carbohydrate diet because she is diabetic. She has chemical dermatitis from urinary incontinence and I have recommended to place Guillen catheter until patient is seen by urologist. Patient will think about it. She was saturating 97% on 1 L by nasal cannula. This was discontinued and for duration of my evaluation and being in the room patient maintained oxygen saturation in the 90s. Lowest I have seen was 92%. Vitals/I&O/Wt Last Vital Signs Temp 97.7 F 03/30/20 11:54 Pulse 42 L 03/30/20 11:54 Resp 18 03/30/20 11:54 BP 125/63 03/30/20 11:54 Pulse Ox 94 03/30/20 11:54 03/29/20 03/30/20 03/30/20 22:59 06:59 14:59 Intake Total 240 / 960 240 / 240 Output Total 200 / 200 Balance 240 / 960 40 / 40 Weight last 48 hrs Weight 130.408 kg Weight 130.499 kg Physical Exam Const: COMMON NORMALS: no acute distress and patient oriented x3 Resp: COMMON NORMALS: normal respiratory effort and clear to auscultation bilaterally AUSCULTATION: clear to auscultation bilaterally Cardio: RHYTHM: abnormal rhythm irregularly irregular OTHER: No lower extremity edema GI: COMMON NORMALS: Normal to inspection, nondistended, normoactive bowel sounds present, Soft to palpation and non-tender PALPATION: Yes Soft to palpation Neuro: COMMON NORMALS: patient oriented x3 and no focal motor deficits Data : 03/30/20 09:37 03/30/20 09:37 A&P Assessment and plan (1) Bradycardia: Asymptomatic, chronic Status: Acute (2) Atrial fibrillation: With a slow ventricular response. Status: Acute (3) Controlled diabetes mellitus with hyperglycemia, without long-term current use of insulin: Status: Chronic Qualifiers: Diabetes mellitus type: type 2 Qualified Code(s): E11.65 - Type 2 diabetes mellitus with hyperglycemia (4) Essential (primary) hypertension: Status: Chronic (5) Hypothyroidism: Status: Acute (6) Morbid obesity with BMI of 45.0-49.9, adult: Status: Acute (7) Weakness: Status: Acute Additional A&P Information PLAN: Discussed with case management and we will go ahead and arrange placement to [facility] for further monitoring and therapy. Patient still requires assistance to get up. Patient does require frequent nursing attention and I do not think she will get same level of care at assisted living unless patient agrees to have Guillen catheter placed. Risks and benefits were discussed including urinary tract infections related to catheter but patient does get frequent UTIs because of her chronic obstructive process. Attestations Medical Necessity Statement*: Patient with generalized weakness requires close inpatient monitoring and treatment until placement is arranged. Coding Level of Care Code Acute Certified Welder for Bri Sage Diagnoses Bradycardia R00.1 Atrial fibrillation I48.91 Controlled diabetes mellitus with hyperglycemia, without long-term current use of insulin E11.65 Diabetes mellitus type: type 2 Essential (primary) hypertension I10 Hypothyroidism E03.9 Morbid obesity with BMI of 45.0-49.9, adult E66.01; Z68.42 Weakness R53.1
--- NOTE | 2020-03-30 13:28 | XRR_ITS ---
PROCEDURE INFORMATION: Exam: XR Chest, 1 View Exam date and time: 03/30/2020 1:28 PM Age: 79 years old Clinical indication: Dyspnea TECHNIQUE: Imaging protocol: XR of the chest Views: 1 view. COMPARISON: CR XR chest 1V portable [id number] 03/27/2020 7:06 PM FINDINGS: Lungs: Visualized portions of the lungs are clear. Pleural spaces: Unremarkable. No pleural effusion. No pneumothorax. Heart/Mediastinum: There is moderate cardiomegaly. Bones/joints: Unremarkable. XR/XR chest 1V portable [id number] IMPRESSION: No acute infiltrates. No significant change from 03/27/2020.
[2020-03-30 15:49] VITALS: BP 181/64; PULSE 44; RESP 18; TEMP 36.7; O2SAT 95
[2020-03-30 17:02] LABS: Glucose Point of Care 106 mg/dL (70-110)
[2020-03-30 20:00] VITALS: BP 145/68; PULSE 53; RESP 20; TEMP 36.6; O2SAT 93
[2020-03-30 20:57] LABS: Glucose Point of Care 153 mg/dL (70-110)
[2020-03-30] MEDS: enoxaparin 40 mg/0.4 mL Syringe SUBCUT (21:20)
[2020-03-30] MEDS: acetaminophen 325 mg Tablet 650 MG PO (21:40)
[2020-03-30] MEDS: lanolin oint 7 gm 1 APPLIC TOPICAL (22:00)
[2020-03-31] VITALS: BP 149/61; PULSE 51; RESP 18; TEMP 36.5; O2SAT 93
[2020-03-31 03:57] VITALS: BP 144/58; PULSE 54; RESP 18; TEMP 36.9; O2SAT 92
[2020-03-31 07:00] LABS: Glucose Point of Care 134 mg/dL (70-110)
[2020-03-31 07:30] VITALS: BP 130/81; PULSE 47; RESP 17; TEMP 36.2; O2SAT 93
[2020-03-31] MEDS: pantoprazole DR 40 mg Tablet PO (08:55)
[2020-03-31] MEDS: fluoxetine 20 mg Capsule PO (08:55)
[2020-03-31] MEDS: lactobacillus 1 Tablet 1 TAB PO (08:55)
[2020-03-31] MEDS: alum-mag-hydroxide-sime 30 mL UDC 10 ML PO (08:55)
[2020-03-31] MEDS: dicyclomine 10 mg Capsule PO (08:56)
[2020-03-31] MEDS: lisinopril 20 mg Tablet PO (09:13)
[2020-03-31] MEDS: BuSPIRONE 10 mg Tablet PO (09:13)
[2020-03-31] MEDS: omega-3 fatty acids 1,000 mg Capsule 1000 MG PO (09:13)
[2020-03-31] MEDS: levothyroxine 100 mcg Tablet 200 MCG PO (09:13)
[2020-03-31] MEDS: multivitamin therapeutic Tablet 1 TAB PO (09:13)
[2020-03-31] MEDS: famotidine 20 mg/2 mL INJ IVP (09:13)
--- NOTE | 2020-03-31 09:50 | PC.SOCIAL ---
Pg 2 IMM Explained to pt Pg 2 IMM. No questions voiced. Provided a copy to pt. Signed, dated, & timed a copy & placed in chart.
--- NOTE | 2020-03-31 10:20 | P.DS_ITS ---
Discharge Providers Date of Admission: 03/28/20 18:17 Date of Discharge: March 31, 2020 Attending Provider at Admission: Juan Ramon Sprague Attending Provider at Discharge: Miah Baker MD Primary Care Provider: ERIKA Jordan Diagnoses at Discharge Discharge Diagnosis (1) Bradycardia: Status: Acute Permanent problem details: Chronic for many years. Asymptomatic (2) Atrial fibrillation: Status: Acute Permanent problem details: With slow ventricular response. (3) Controlled diabetes mellitus with hyperglycemia, without long-term current use of insulin: Status: Chronic Qualifiers: Diabetes mellitus type: type 2 Qualified Code(s): E11.65 - Type 2 diabetes mellitus with hyperglycemia (4) Essential (primary) hypertension: Status: Chronic (5) Hypothyroidism: Status: Acute (6) Morbid obesity with BMI of 45.0-49.9, adult: Status: Acute (7) Weakness: Status: Acute (8) Dementia: Status: Acute Permanent problem details: Patient does have short-term memory deficit. Specifics of dementia is unknown. Appears to be Alzheimer's type. Hypothyroidism could also play a role and this may improve with treatment. (9) Chemical dermatitis: Status: Acute Permanent problem details: Secondary to urinary incontinence. Present on admission. Reason for Visit Reason for Visit: LOW HEARTRATE, ANEMIA Hospital Course Hospital Course Patient has prolapse related frequent urinary tract infections and has been seeing Dr. Sánchez but unfortunately patient did not make her mind regarding further plan of treatment. Surgery versus seeing your forest fire fighter in [place] for wider pessary options was offered to her. Patient had multiple pessary feeding trials here but all of them were not successful. Patient reports that she suffers significantly from frequent episodes of urinary incontinence and therefore after discussion along with risks and benefits patient decided to have Guillen catheter placed. Patient was told that catheter needs to be changed every [address] Sánchez this morning. Plan to discuss over the phone with patient and her daughter on Wednesday regarding decision and move from there. Patient found to have significant hypothyroidism and started on levothyroxine. I will request outpatient follow-up with Dr. Szymanski in couple of weeks. This morning patient denies any shortness of breath or chest pain. Denies abdominal pain. Appetite and oral intake are good. Patient requires physical therapy and home health will be requested. Risks and benefits of anticoagulation were discussed with patient and she opted to be anticoagulated. I will request outpatient follow-up with cardiology. Patient's bradycardia is chronic and she is asymptomatic. She denies any chest pain with ambulation. She reports that she gets tired but otherwise does not get short of breath with exertion. Physical Exam Narrative: EXAM NARRATIVE: Lungs are clear. Heart is irregularly irregular. Bradycardic. No lower extremity edema. Abdomen is soft and nontender with positive bowel sounds. Urinary Catheter Management^: Guillen: Cath Placed During This Visit: yes Reason for Continuing Indwelling Catheter: Assist healing open wound Urinary Catheter Date of Insertion: 03/30/20 Urinary Catheter Time of Insertion: 17:04 Discharge Data Data Completed and Pending: Completed Studies During Hospitalization Category Date Time Status XR chest 1V [place] ble [id number] Routine Exams 03/30/20 13:28 Completed XR chest 1V [place] ble [id number] Stat Exams 03/27/20 19:01 Completed CV echo complete* [id number] Routine Ultrasound 03/28/20 07:00 Completed Labs from last 24 hours 03/31/20 03/30/20 03/30/20 06:47 20:06 16:58 Sodium Potassium Chloride Carbon Dioxide Anion Gap BUN Creatinine GFR Calculation Glucose POC Glucose 134 H 153 H 106 Calculated Osmolal ity Calcium Total Bilirubin AST ALT Alkaline Phosphata se Total Protein Albumin Globulin TSH 03/30/20 03/30/20 11:44 09:37 Sodium 133 L Potassium 4.6 Chloride 96 L Carbon Dioxide 29 Anion Gap 12.6 BUN 27 H Creatinine 1.1 H GFR Calculation Not Reportable Glucose 168 H POC Glucose 193 H Calculated Osmolal ity 285 Calcium 10.2 Total Bilirubin 0.6 AST 24 ALT 25 Alkaline Phosphata se 46 Total Protein 6.8 Albumin 3.9 Globulin 2.9 TSH 44.67 H Vitals: Last Vital Signs Temp 97.1 F L 03/31/20 07:30 Pulse 47 L 03/31/20 07:30 Resp 17 03/31/20 07:30 BP 130/81 03/31/20 07:30 Pulse Ox 93 03/31/20 07:30 Discharge Plan Discharge Patient Disposition: Home Health Service Condition: Stable Prescriptions: New Eliquis 5 mg tablet 5 mg PO Q12H Qty: 60 RF: 0 levothyroxine [Levoxyl] 100 mcg Tablet 200 mcg PO DAILY Qty: 30 RF: 0 Continued Vagisil 20-3 % cream See Rx Instructions TOPICAL .COMPLEX Qty: 28 RF: 2 cholestyramine (with sugar) 4 gram powder See Rx Instructions .ROUTE .COMPLEX RF: 0 alum-mag hydroxide-simeth [Reina-Lanta] 200-200-20 mg/5 mL suspension 10 - 20 ml PO QID PRN (Reason: Heartburn) RF: 0 hydrocortisone [Proctozone-HC] 2.5 % cream with perineal applicator 1 applic MA DAILY PRN (Reason: Hemorrhoids) RF: 0 Refresh Tears 0.5 % drops 1 drop ophthalmic (eye) TID PRN (Reason: unknown) RF: 0 dicyclomine 10 mg capsule 10 mg PO BID@08,20 RF: 0 dextromethorphan-guaifenesin [Robafen DM Cough] 10-100 mg/5 mL liquid 10 ml PO Q4H PRN (Reason: Cough) RF: 0 triamcinolone acetonide 0.1 % cream 1 applic TOPICAL BID PRN (Reason: unknown) RF: 0 mupirocin 2 % ointment See Rx Instructions .ROUTE .COMPLEX RF: 0 omeprazole 20 mg capsule,delayed release(DR/EC) 20 mg PO DAILY@08 RF: 0 lisinopril 20 mg tablet 20 mg PO DAILY@08 RF: 0 acetaminophen [Tylenol Extra Strength] 500 mg tablet 500 - 1,000 mg PO Q4H MDD 3000mg PRN (Reason: Pain) RF: 0 cefdinir 300 mg capsule 300 mg PO Q12H Qty: 60 RF: 2 docosanol [Abreva] 10 % cream 1 applic TOPICAL .every 2 hours PRN (Reason: cold sores) Qty: 2 RF: 2 furosemide [Lasix] 20 mg tablet 20 mg PO DAILY PRN (Reason: edema or weight gain 3 pounds over night) Qty: 60 RF: 0 Acidophilus-Pectin Capsule 1 cap PO BID@08,20 RF: 0 Sarna Original 0.5-0.5 % Lotion See Rx Instructions .ROUTE .COMPLEX RF: 0 Hair,Skin and Nails Tablet 1 tab PO DAILY@08 RF: 0 zonisamide 25 mg capsule 50 mg PO BID@08,20 RF: 0 Probiotic 1 cap PO BID@08,20 RF: 0 buspirone 10 mg tablet 10 mg PO BID@08,20 RF: 0 estradiol 0.01 % (0.1 mg/gram) cream See Rx Instructions .ROUTE .COMPLEX RF: 0 Prozac 20 mg capsule 20 mg PO BID@,20 RF: 0 Fish Oil 1,000 mg (120 mg-180 mg) capsule 1 cap PO BID@,20 RF: 0 Ozempic 0.25 mg or 0.5 mg(2 mg/1.5 mL) pen injector 0.25 mg SUBCUT Q7D RF: 0 hydrocortisone 1 % Cream 1 applic TOPICAL BID PRN (Reason: unknown) RF: 0 hydrocodone-acetaminophen 7.5-325 mg tablet 1 tab PO QID MDD 3000mg from all sources PRN (Reason: Pain) RF: 0 nystatin 100,000 unit/gram Cream 1 applic TOPICAL BID@ RF: 0 Nyamyc 100,000 unit/gram powder 1 applic TOPICAL BID@,20 RF: 0 Xlear Sinus Spr Care See Rx Instructions .ROUTE .COMPLEX RF: 0 Sarna Sensitive 1 % Lotion See Rx Instructions .ROUTE .COMPLEX RF: 0 Discharge Orders: Discharge Order (Routine); Ordered 03/31/20 Ordered By: Miah Baker Referrals: Jaciel Nelson, RECORD SEARCHER-C [Primary Care Provider] - 4-7 days (Call the office [phone] on Wednesday to schedule an appointment in 4 to 7 days) Adam Camacho MD [Physician] - 1-3 days (Please call the ofice first thing Wednesday morning at [phone] to schedule an appointment in 1 to 3 days.) Michel Szymanski MD [Physician] - 2 weeks (Call the office first thing Wednesday morning at [phone] to schedule an appointment in 2 weeks.) Nu Perez MD [Physician] - 2 weeks Discharge Diet: Usual diet Discharge Activity: Increase activity as tolerated Patient Instructions: Bradycardia, Levothyroxine (By mouth), Dementia (GEN) Activity Restrictions/Additional Instructions: Please call your doctor or present to emergency department if your condition worsens or you develop diarrhea, lightheadedness, fatigue or see blood in your stool or black stool. Please follow Guillen catheter recommendation and know that it needs to be changed every [address] Sánchez on Wednesday to make decision regarding surgery versus seeing a urogynecologist for pessary fitting. Discharge Attestations Time Spent in Discharge Care*: greater than 30 min Quality Metrics Clinical Quality Measures During this hospital stay, did patient experience: None Coding Level of Care Code Acute Operations Tech for Chg Fwd Diagnoses Bradycardia R00.1 Atrial fibrillation I48.91 Controlled diabetes mellitus with hyperglycemia, without long-term current use of insulin E11.65 Diabetes mellitus type: type 2 Essential (primary) hypertension I10 Hypothyroidism E03.9 Morbid obesity with BMI of 45.0-49.9, adult E66.01; Z68.42 Weakness R53.1 Dementia F03.90 Chemical dermatitis L25.3
[2020-03-31 10:59] VITALS: BP 151/55; PULSE 66; RESP 18; TEMP 36.5; O2SAT 94
[2020-03-31] MEDS: cefdinir 300 MG CAPSULE PO (11:15)
[2020-03-31] MEDS: nystatin cream 30 gm 1 APPLIC TOPICAL (11:16)
[2020-03-31 11:17] LABS: Glucose Point of Care 209 mg/dL (70-110)
[2020-03-31] MEDS: nystatin powder 15 gm Btl 1 APPLIC TOPICAL (11:17)
[2020-03-31] MEDS: mupirocin oint 22 gm 1 APPLIC TOPICAL (11:18)
--- NOTE | 2020-03-31 12:51 | PC.NURSE ---
patient asked what the right to appeal paper is about that she got from . Elementary Principal explained the form to her.
--- NOTE | 2020-03-31 14:02 | PC.NURSE ---
Notified [facility] [phone] that patient is returning there today.
--- NOTE | 2020-03-31 14:25 | PC.NURSE ---
SBAR faxed to [facility], patient taken to private vehicle via wheelchair by staff and assisted into vehicle.
[2020-03-31 14:27] VITALS: BP 151/55; PULSE 66; RESP 18; TEMP 36.5; O2SAT 94
== END 2020-03-31 14:28 | disposition home health service (06) | DRG 309 ==
LOC: ER 20:48 → MEDSURG 03-28 07:16
PROVIDERS: Admitting Provider Internal Medicine; Emergency Provider Emergency Medicine; PCP Nurse Practitioner; Visit Provider Internal Medicine
DX: I48.91 Unspecified atrial fibrillation (principal); Z68.42 Body mass index [BMI] 45.0-49.9, adult; I50.32 Chronic diastolic (congestive) heart failure; R00.1 Bradycardia, unspecified; E66.01 Morbid (severe) obesity due to excess calories; I11.0 Hypertensive heart disease with heart failure; F41.8 Other specified anxiety disorders; E11.65 Type 2 diabetes mellitus with hyperglycemia; Z87.440 Personal history of urinary (tract) infections; Z79.2 Long term (current) use of antibiotics; E03.9 Hypothyroidism, unspecified; R53.1 Weakness; L30.8 Other specified dermatitis; R32 Unspecified urinary incontinence; G30.9 Alzheimer's disease, unspecified; F02.80 Dementia in other diseases classified elsewhere, unspecified severity, without behavioral disturbance, psychotic disturbance, mood disturbance, and anxiety; Z79.890 Hormone replacement therapy; Z79.891 Long term (current) use of opiate analgesic
CPT/HCPCS: 12345; 36415; 36416; 51702; 71045; 80048; 80053; 81001; 82962; 83735; 83880; 84100; 84443; 84484; 85025; 85610; 93005; 93306; 96372; 97110; 97161; 97530; 99282; G0378; J1650; J1815; J3490

== ENCOUNTER → 2020-04-17 14:25 | Outpatient (BNVA) | payer MEDICARE, MEDICAID, SELFPAY | PROVIDERS: PCP Nurse Practitioner; Visit Provider Internal Medicine | DX: E03.9 Hypothyroidism, unspecified (principal); E11.9 Type 2 diabetes mellitus without complications; F03.90 Unspecified dementia, unspecified severity, without behavioral disturbance, psychotic disturbance, mood disturbance, and anxiety; I48.91 Unspecified atrial fibrillation | CPT/HCPCS: 99204 ==

== ENCOUNTER → 2020-04-22 14:09 | Outpatient (BNVA) | payer MEDICARE, MEDICAID, SELFPAY | PROVIDERS: PCP Nurse Practitioner; Visit Provider Nurse Practitioner | DX: E03.9 Hypothyroidism, unspecified (principal); I50.9 Heart failure, unspecified | CPT/HCPCS: 80048; 83735; 83880; 84439; 84443 ==

== ENCOUNTER → 2020-05-16 10:21 | Outpatient (BNVA) | payer MEDICARE, MEDICAID, SELFPAY | PROVIDERS: PCP Nurse Practitioner; Visit Provider Obstetrics & Gynecology | DX: Z20.822 Contact with and (suspected) exposure to COVID-19 (principal) | CPT/HCPCS: 87635 ==

== ENCOUNTER 2020-05-22 14:12 | Observation (INO) | payer MEDICARE, MEDICAID, SELFPAY ==
[2020-05-20 12:24] VITALS: BMI 44.6
--- NOTE | 2020-05-20 12:58 | P.ANESASSM_ITS ---
Pre-Anesthetic Assessment Pre-Anesthetic Assessment: Height/Weight: Height 1.65 m Weight 121.563 kg Preop Diagnosis: None Proposed Procedure: Operation Date: 05/22/20 11:55 Proposed Procedures p Colpocleisis 85522 N81.4(Not Applicable) - Ta Varner MD Familial anesthetic complications: None Was Beta Job taken within 24 hours: N/A Was Clonidine taken within 24 hours: N/A Social: Social History: No alcohol and No tobacco Exam: Pre-Anes Outpt Exam: alert, oriented x 3, clear to auscultation bilaterally and regular rate & rhythm Airway: Cervical ROM: WNL MP: 4 Dentition: Other ( I have bad teeth ) CV/HEM: CV/HEM: Afib and HTN Metabolic: Metabolic: DM, Morbid obesity and Thyroid Neuropsych: Neuropsych: Dementia Anesthetic Plan: ASA status: 3 Other: Poor historian, family member also relatively poor historian Risk of > 500 ml blood loss (7ml/kg in children): No Other Pertinent Information: family Would like to request Donavan Solomon CRNA to perform anesthesia [facility] Anesthesia PFSH: Medical History Anxiety and depression Controlled diabetes mellitus with hyperglycemia, without long-term current use of insulin Dependent on walker for ambulation Essential (primary) hypertension Hypothyroid Lives in assisted living facility No pertinent past medical history Denies asthma, seizures, bleeding or clotting disorders, DVT/PE. PCP: ROSALVA Mcmillan Surgical History History of colonoscopy 2007 Negative Family History Mother Diabetes Stroke Father Heart disease Sister Breast cancer diagnosed at age 45 Denies family history of Colon cancer Ovarian cancer Hyperlipidemia Hypertension Uterine cancer Thyroid condition Social History (Updated 05/20/20 @ 09:04 by Annabelle Poon RN) Smoking and tobacco status: never smoked Second hand smoke exposure: No Alcohol intake: never Substance/Drug Use: never Housing: Assisted Living Facility Marital status: / Data Anesthesia Cardiac Studies: No Data to Display
[2020-05-22] VITALS (15 sets, daily range): BP systolic 137–192; BP diastolic 62–93; PULSE 57–78; RESP 12–20; TEMP 36.3–37.1; O2SAT 93–100
[2020-05-22 09:27] LABS: Add Urine Microscopic? NO
[2020-05-22 09:41] LABS: Urine Appearance Clear (CLEAR); Urine Color Yellow (Yellow)
[2020-05-22 09:42] LABS: Bilirubin Urine Neg (Negative); Blood Urine Neg (Negative); Glucose Urine UA Norm (Normal); Ketones Urine Negative (Negative); Leukocyte Esterase Urine Negative (Negative); Nitrate Urine Negative (Negative); Protein Urine Neg (Negative); Specific Gravity, Urine 1.015 (1.005-1.030); Urobilinogen Urine Norm (Negative); pH Urine 5 (5-7)
[2020-05-22 09:44] LABS: Glucose Point of Care 181 mg/dL (70-110)
[2020-05-22 10:09] LABS: Basophils # 0.1 10^3/uL (0.0-0.1); Basophils % 1.2 %; Eosinophils # 0.1 10^3/uL (0.0-0.8); Hematocrit 42.2 % (37.0-47.0); Hemoglobin 13.2 g/dL (11.5-15.3); Mean Corpuscular HGB Conc 31.3 g/dL (30.0-36.0); Mean Corpuscular Hemoglobin 29.2 pg (28.0-34.0); Mean Corpuscular Volume 93.4 fL (81-99); Monocytes # 0.6 10^3/uL (0.2-0.9); Monocytes % 9.2 %; Neutrophils # 4.32 10^3/uL (1.8-7.7); Neutrophils % 71.3 %; Nucleated Red Blood Cells % 0 %; Platelet Count 200 10^3/cmm (130-400); Red Blood Count 4.52 10^6/uL (4.1-5.3); Red Cell Distribution Width 13.2 % (12.1-15.1); White Blood Count 6.1 10^3/uL (4.0-10.0)
[2020-05-22 10:15] LABS: Alanine Aminotransferase 21 U/L (0-33); Alkaline Phosphatase 76 IU/L (35-105); Anion Gap 12.2 (5-19); Aspartate Amino Transferase 16 U/L (0-32); Blood Urea Nitrogen 22 mg/dL (8-23); Calcium 9.9 mg/dL (8.5-10.5); Carbon Dioxide 27 mmol/L (22-29); Chloride 102 mmol/L (98-107); Globulin 3.1 g/dL (1.3-4.6); Glucose 198 mg/dL (65-115); Osmolality Calculated 293 mOsm/kg (285-295); Potassium 4.2 mmol/L (3.5-5.1); Sodium 137 mmol/L (136-145); Total Bilirubin 0.5 mg/dL (0.15-1.2); Total Protein 7.1 g/dL (6.6-8.7)
[2020-05-22] MEDS: sodium chloride 0.9% 1,000 ML 30 ML IV (10:15)
[2020-05-22] MEDS: enoxaparin 40 mg/0.4 mL Syringe SUBCUT (10:18)
--- NOTE | 2020-05-22 10:37 | W.PM.OPSUD ---
Surgery/Procedure H&P Update DATE OF PROCEDURE: May 22, 2020 DATE H&P PERFORMED: 05/20/20 H&P UPDATE INFORMATION: I have reviewed H&P completed within last 30 days, I have examined patient prior to procedure and No changes to prior documentation PREOP DIAGNOSIS: Cystocele with complete uterine prolapse PLANNED PROCEDURE: Operation Date: 05/22/20 10:30 Proposed Procedures p Colpocleisis 89387 N81.4(Not Applicable) - Ta Varner MD
[2020-05-22] MEDS: vancomycin 1,000 MG in sodium chloride 0.9% 250 ML 250 MG IV (11:15)
[2020-05-22] MEDS: vasopressin 20 unit/mL INJ 6 UNIT INJECTION (12:56)
--- NOTE | 2020-05-22 14:02 | P.OP_ITS ---
Operative Report Date of procedure: June 10, 2020 Pre-op Diagnosis: complete uterine prolapse Post-op diagnosis: same Procedure Done: LeFort colpocleisis Pathology: none sent Surgeon: Ta Varner MD Anesthesia: General Estimated blood loss (mL): 100 IV fluids (mL): 1,000 Urine output (mL): 500 Complications: none Findings: Uterine prolapse Condition: stable Disposition: PACU Brief History: 80-year-old female with uterine prolapse Procedure: After informed consent, the patient was taken to the Operating Room where general anesthesia was administered. She was placed in the dorsal lithotomy position and prepped and draped in sterile fashion. A time out procedure was performed. The patient was examined under anesthesia and found to have complete uterine procidentia. A Guillen catheter was placed into the bladder identify the bladder neck. Placing the cervix on traction to cristian the vagina. The vaginal mucosa was injected with either bupivacaine or 2% lidocaine with 1:200,000 epinephrine, just below the vaginal epithelium anteriorly and posteriorly. With marking pen to italia out the rectangular areas of the vaginal epithelium that are to be removed anteriorly and posteriorly. Extend the anterior rectangle from approximately 2 cm from the tip of the cervix to 4 or 5 cm below the external urethral meatus. A mirror image on the posterior aspect of the cervix and vagina. Extend the rectangle on the posterior vaginal wall from approximately 2 cm below the level of the tip f the cervix to 4 or 5 cm inside the posterior fourchette. A vertical midline incision was made beneath the midurethra, nearly 1.5 cm lengt h. Careful submucosal dissection was performed bilaterally up to the interior portion of the inferior pubic ramus. The insertion of adductor longus tendon on the patient?s pubic ramus was identified as reference land italia. Palpated the notch along the internal edge of ischiopubic ramus where the adductor longus tendon and the inferior pubic ramus meet. The mesh of the sling was lined anteriorly and posteriorly with the thin Matristem porcine graft before placement fixed to the mesh with PDS suture. The needle of the SIS inserted aiming at the location of this notch. One of the integrated self-fixating tips place onto the needle by sliding it over the end of the needle. The needle/sling assembly was inserted toward the location of identified reference notch making sure that the flat of the handle is perpendicular to the desired path. The needle was tracked along the posterior surface of the ischiopubic ramus until the midline italia on the mesh is approximately at the midline position under the urethra. The needle was removed and the same was repeated on the contralateral side until the appropriate sling tension under the urethra was achieved ensuring that the mesh lays flat. The needle was removed and vaginal incision was closed in a running interlocking fashion with 2-0 Vicryl. A single-tooth tenaculum was then applied to the cervix. The uterus was then gently sounded to 4 cm and a sharp curette was advanced gently to the uterine fundus and scant endometrial tissue was obtained. A sharp curettage was then performed until a gritty texture was noted. There was minimal bleeding noted and the tenaculum was removed with good hemostasis noted. The vaginal epithelium from both the anterior and posterior vaginal pierre were incised as marked and with sharp dissection dissected off leaving the maximum amount possible of vaginal muscularis on the underlying bladder and the rectum. The cut edges of the anterior and posterior vaginal pierre were sew together with interrupted delayed absorbable sutures gradually turning the uterus and vaginal apex inward. Then the superior and inferior margins of the rectangles were sutured together. Excellent hemostasis was obtained. Sponge, lap, needle, and instrument counts were correct times three. The patient was taken to the recovery room, awake and in stable condition.
--- NOTE | 2020-05-22 14:02 | P.OP_ITS ---
Operative Report Date of procedure: May 22, 2020 Pre-op Diagnosis: Cystocele with complete uterine prolapse Post-op diagnosis: same Procedure Done: Colpocleisis Single incision mid urethral sling Cystoscopy Pathology: none sent Surgeon: Ta Varner MD Anesthesia: General Estimated blood loss (mL): 100 IV fluids (mL): 1,000 Urine output (mL): 500 Complications: none Findings: complete uterine prolapse Condition: stable Disposition: PACU Brief History: 80-year-old female with complete uterine prolapse and urinary incontinence Procedure: After obtaining informed consent, the patient was taken to the operating room and placed in the supine position, given general anesthesia, and prepped and draped in sterile fashion. The abdomen, vulva and vagina were prepped and draped in a sterile manner. A time out procedure was performed. The anterior vaginal mucosa beneath the midurethra was infiltrated with 0.5% Marcaine with epinephrine. A vertical midline incision was made beneath the midurethra, nearly 1.5 cm length. Careful submucosal dissection was performed bilaterally up to the interior portion of the inferior pubic ramus. The insertion of adductor longus tendon on the patient?s pubic ramus was identified as reference land italia. Palpated the notch along the internal edge of ischiopubic ramus where the adductor longus tendon and the inferior pubic ramus meet. The Altis single incision sling (SIS) was selected. With thin porcine graft the mesh of the sling was lined anteriorly and posteriorly with the graft. Then the needle of the SIS inserted aiming at the location of this notch. One of the integrated self-fixating tips place onto the needle by sliding it over the end of the needle. The needle/sling assembly was inserted toward the location of identified reference notch making sure that the flat of the handle is perpendicular to the desired path. The needle was tracked along the posterior surface of the ischiopubic ramus until the midline italia on the mesh is approximately at the midline position under the urethra. The needle was removed and the same was repeated on the contralateral side until the appropriate sling tension under the urethra was achieved ensuring that the mesh lays flat. The ne edle was removed and vaginal incision was closed in a running interlocking fashion with 2-0 Vicryl. Then the Guillen catheter was removed and cystoscope was inserted. The bladder was filled with sterile water. Complete evaluation of the bladder mucosa was performed noting no lacerations, dimpling, tears, bleeding of the mucosa or muscular layers. Both ureteral orifices were identified. Prompt excretion of urine from both ureteral orifices was noted. Cystoscope was withdrawn. The Guillen catheter was replaced. Excellent hemostasis was obtained. A vaginal pack is placed overnight as postoperative support for the vaginal tissues after graft placement and closure of vaginal incisions. Sponge, lap, needle, and instrument counts were correct times three. The patient was taken to the recovery room, awake and in stable condition.
--- NOTE | 2020-05-22 14:13 | P.PCN_ITS ---
PACU note PACU note: VSS, Good respiratory effort, report to BOTTOM FILLER Post-Anesthesia Exam: awake
--- NOTE | 2020-05-22 14:13 | PM.PACU ---
PACU note PACU note: VSS, Good respiratory effort, report to HRIS COORDINATOR Post-Anesthesia Exam: awake
--- NOTE | 2020-05-22 14:19 | SUR.PHASEI ---
PT AWAKES, ORAL AIRWAY OUT PT VERBALLY DENIES PAIN AND C/O OF COLD, WARM BLANKETS X2 TO PT FOR COMFORT.
--- NOTE | 2020-05-22 14:27 | SUR.PHASEI ---
PT AWAKES EASILY TO VOICE, PT DENIES PAIN, PT TAKING OCC ICE CHIPS VSS PT ON RA SATS 97%
[2020-05-22] MEDS: ketorolac 30 mg/mL INJ IVP ×2 (16:47→23:01)
--- NOTE | 2020-05-22 18:06 | ANE.PACU2 ---
Inpatient post-anesthesia follow up: Airway intact: Yes Vital signs: Temperature 98.2 F Pulse Rate 64 Respiratory Rate 18 Blood Pressure 157/64 Pulse Oximetry 95 Oxygen Delivery Me thod Room Air Oxygen Flow Rate 8 Fraction of Inspir ed Oxygen Hydration adequate: Yes Nausea and vomiting: No Pain level: 3 Mental status: Baseline
[2020-05-22] MEDS: fluoxetine 20 mg Capsule PO (19:37)
[2020-05-22] MEDS: apixaban 5 mg Tablet PO (19:39)
[2020-05-22] MEDS: cefdinir 300 MG CAPSULE PO (19:39)
[2020-05-22] MEDS: dicyclomine 10 mg Capsule PO (19:40)
[2020-05-22] MEDS: BuSPIRONE 10 mg Tablet PO (19:40)
[2020-05-22] MEDS: FUROsemide 40 mg Tablet PO (19:41)
[2020-05-22] MEDS: potassium chloride ER 20 mEq Tablet PO (19:41)
[2020-05-22] MEDS: sodium chloride 0.9% 500 ML IV (21:35)
[2020-05-22] MEDS: dextrose 5%-lactated ringers 1,000 ML 125 ML IV (22:06)
[2020-05-22] MEDS: FUROsemide 10 mg/mL SDV 4mL 40 MG IVP (23:35)
[2020-05-23 01:44] VITALS: BP 127/58; PULSE 48; RESP 20; O2SAT 95
[2020-05-23 04:00] VITALS: BP 118/58; PULSE 61; RESP 20; TEMP 37.2; O2SAT 96
[2020-05-23 05:17] LABS: Hematocrit 35.9 % (37.0-47.0); Hemoglobin 11.1 g/dL (11.5-15.3); Mean Corpuscular HGB Conc 30.9 g/dL (30.0-36.0); Mean Corpuscular Hemoglobin 29.7 pg (28.0-34.0); Mean Platelet Volume 10.1 fL (7.4-10.4); Platelet Count 169 10^3/cmm (130-400); Red Blood Count 3.74 10^6/uL (4.1-5.3); Red Cell Distribution Width 13.2 % (12.1-15.1); White Blood Count 6.3 10^3/uL (4.0-10.0)
--- NOTE | 2020-05-23 08:28 | PC.NURSE ---
Physical Therapy at bedside at this time
[2020-05-23] MEDS: BuSPIRONE 10 mg Tablet PO (09:14)
[2020-05-23] MEDS: pantoprazole DR 40 mg Tablet PO (09:14)
[2020-05-23] MEDS: levothyroxine 100 mcg Tablet PO (09:15)
[2020-05-23] MEDS: apixaban 5 mg Tablet PO (09:15)
[2020-05-23] MEDS: lisinopril 10 mg Tablet 20 MG PO (09:15)
[2020-05-23] MEDS: cefdinir 300 MG CAPSULE PO (09:20)
[2020-05-23] MEDS: fluoxetine 20 mg Capsule PO (09:20)
[2020-05-23] MEDS: potassium chloride ER 20 mEq Tablet PO (09:21)
[2020-05-23] MEDS: FUROsemide 40 mg Tablet PO (09:21)
[2020-05-23] MEDS: dicyclomine 10 mg Capsule PO (09:21)
[2020-05-23 10:00] VITALS: BP 142/59; PULSE 55; RESP 16; TEMP 36.7; O2SAT 96
--- NOTE | 2020-05-23 12:04 | PC.CHAP ---
Pastoral Care Encounter/Spiritual Assessment Type of Contact [] Declined primary school principal visit [] Patient/Family/Request visit [] Outpatient visit [] Follow-up visit [] Physician referral [] Code/Alert [] Routine visit [] Staff referral [] Actively dying [] Patient sleeping [] Family support [] [] Out of room [] Palliative care [] [] Receiving care in room [] Pre-surgical visit [] Trauma [] Long length of stay [] ICU visit [x] Other: patient request Relational/Emotional Strength [] Patient feels connected with others/family/visitors/staff [] Distress [] Loneliness/isolation [] Abandonment Spirituality of Patient [x] Person of Suly [] Attends Lutheran of their Suly [x] Believes in Prayer [] Reads Bible or Jain materials [] There are Spiritual issues to be addressed Hearing Therapy Teacher Interventions [x] Prayer [x] Active listening [x] Non-anxious presence [x] Spiritual/emotional support [] Crisis/trauma care [] Spiritual counseling [] Bereavement support [] Provided bereavement packet [] Provided Bible/devotional materials [] Provided toy/stuffed animal, coloring book to patient or family member [] Provided Communion [] Anointing/Carmine [] Salvation [x] Completed spiritual assessment [] Other: Impact on Illness or Injury [] Angry [] Fearful [] Anxious [] Often cries [] Exhaustion [] Unable to work [] Unable to attend mormonism [] Unable to walk/stand [] Unable to read [] Unable to drive [] Unable to eat/drink [] Unable to sleep [] Unable to be with family [] Patient intubated [] Other: Summary patient lives in care home home spouse passed 2018 2019 merlene has kept her family from visiting.. very lonely. patient states she is depressed. primary school principal will revisit this afternoon Time spent with patient 20 min
--- NOTE | 2020-05-23 13:04 | PM.OBGYDC ---
Discharge Providers FIBERGLASS DOWEL DRAWING OPERATOR Date of Admission: 05/22/20 14:12 Date of Discharge: 05/23/20 Attending Provider at Admission: Ta Varner MD Attending Provider at Discharge: Ta Varner MD Primary Care Provider: ERIKA Jordan Reason for Visit Reason for Visit: uterine prolapse Hospital Course Hospital Course Mrs. Hyatt 80-year-old female with total uterine prolapse and urinary incontinence admitted for planned colpocleisis and mid urethral sling. The procedures were performed without complications. Overnight observation was uneventful. Patient tolerating diet well. Had a bowel movement. Limited ambulation due to knee problems. She is afebrile and hemodynamically stable. Physical Exam Narrative: EXAM NARRATIVE: GA: Alert and oriented ?3. HEENT: WNL. Heart: Regular rate and rhythm. Lungs: Clear to auscultation bilaterally. Abdomen: Bowel sounds present, THREAD CLIPPER: No bleeding. Extremities: No edema, no cyanosis, no calves pain. Urinary Catheter Management^: Guillen: Cath Placed During This Visit: yes, but has since been removed by the nurse Reason for Continuing Indwelling Catheter: Decision to DC Catheter Urinary Catheter Date of Insertion: 05/22/20 Urinary Catheter Time of Insertion: 12:30 Date Urinary Catheter Removed: 05/23/20 Time Urinary Catheter Discontinued: 10:30 Discharge Data Data Completed and Pending: Labs from last 24 hours 05/23/20 04:55 WBC 6.3 RBC 3.74 L Hgb 11.1 L Hct 35.9 L MCV 96.0 MCH 29.7 MCHC 30.9 RDW 13.2 Plt Count 169 MPV 10.1 Vitals: Last Vital Signs Temp 99.0 F 05/23/20 04:00 Pulse 61 05/23/20 04:00 Resp 20 H 05/23/20 04:00 BP 118/58 05/23/20 04:00 Pulse Ox 96 05/23/20 04:00 Discharge Plan Discharge Patient Disposition: Home Condition: Stable Prescriptions: New hydrocodone-acetaminophen 2.5-325 mg tablet 1 tab PO Q4H PRN (Reason: Postsurgical pain) Qty: 10 RF: 0 Continued alum-mag hydroxide-simeth [Reina-Lanta] 200-200-20 mg/5 mL suspension 10 - 20 ml PO QID PRN (Reason: Heartburn) RF: 0 hydrocortisone [Proctozone-HC] 2.5 % cream with perineal applicator 1 applic OR DAILY PRN (Reason: Hemorrhoids) RF: 0 Refresh Tears 0.5 % drops 1 drop ophthalmic (eye) TID PRN (Reason: unknown) RF: 0 Vagisil 5-2 % cream 1 applic topical BID RF: 0 alum-mag hydroxide-simeth [Mintox] 200-200-20 mg/5 mL suspension 10 ml PO Q6H PRN (Reason: Diarrhea) RF: 0 Eliquis 5 mg tablet 5 mg PO BID RF: 0 fluoxetine 20 mg capsule 20 mg PO BID RF: 0 Levoxyl 100 mcg tablet 100 mcg PO DAILY Qty: 30 RF: 2 dicyclomine 10 mg capsule 10 mg PO BID@08,20 RF: 0 dextromethorphan-guaifenesin [Robafen DM Cough] 10-100 mg/5 mL liquid 10 ml PO Q4H PRN (Reason: Cough) RF: 0 triamcinolone acetonide 0.1 % cream 1 applic TOPICAL BID PRN (Reason: unknown) RF: 0 mupirocin 2 % ointment See Rx Instructions .ROUTE .COMPLEX RF: 0 omeprazole 20 mg capsule,delayed release(DR/EC) 20 mg PO DAILY@08 RF: 0 acetaminophen [Tylenol Extra Strength] 500 mg tablet 500 - 1,000 mg PO Q4H MDD 3000mg PRN (Reason: Pain) RF: 0 cefdinir 300 mg capsule 300 mg PO Q12H Qty: 60 RF: 2 docosanol [Abreva] 10 % cream 1 applic TOPICAL .every 2 hours PRN (Reason: cold sores) Qty: 2 RF: 2 cholestyramine (with sugar) 4 gram powder See Rx Instructions .ROUTE .COMPLEX Qty: 378 RF: 0 lisinopril 10 mg tablet 20 mg PO DAILY@08 Qty: 30 RF: 4 furosemide 40 mg tablet 40 mg PO BID Qty: 60 RF: 3 potassium chloride 20 mEq tablet extended release 20 meq PO BID Qty: 60 RF: 3 Lactobacillus acidoph-pectin Capsule 1 cap PO BID@08,20 RF: 0 Sarna Original 0.5-0.5 % Lotion See Rx Instructions .ROUTE .COMPLEX RF: 0 multivitamin with minerals [Hair,Skin and Nails] Tablet 1 tab PO DAILY@08 RF: 0 zonisamide 25 mg capsule 50 mg PO BID@,20 RF: 0 Probiotic 1 cap PO BID@,20 RF: 0 buspirone 10 mg tablet 10 mg PO BID@,20 RF: 0 estradiol 0.01 % (0.1 mg/gram) cream See Rx Instructions .ROUTE .COMPLEX RF: 0 omega 9-pwj-uzk-fish oil [Fish Oil] 1,000 mg (120 mg-180 mg) capsule 1 cap PO BID@,20 RF: 0 hydrocortisone 1 % Cream 1 applic TOPICAL BID PRN (Reason: unknown) RF: 0 hydrocodone-acetaminophen 7.5-325 mg tablet 1 tab PO DAILY MDD 3000mg from all sources PRN (Reason: Pain) RF: 0 nystatin 100,000 unit/gram Cream 1 applic TOPICAL BID@,20 RF: 0 nystatin [Nyamyc] 100,000 unit/gram powder 1 applic TOPICAL BID@,20 RF: 0 Sarna Sensitive 1 % Lotion See Rx Instructions .ROUTE .COMPLEX RF: 0 Ozempic 0.25 mg or 0.5 mg(2 mg/1.5 mL) pen injector 0.25 mg SUBCUT Q7D RF: 0 Hold Instructions: Doctor's Order Referrals: Ta Varner MD [Physician] - 06/04/20 2:15 pm (Your 2 week appointment has been scheduled for 06/04/20 at 2:15 pm Your 6 week appointment has been scheduled for 07/02/20 at 12:45 pm) Patient Instructions: Cystoscopy, Bladder Sling Procedures (DC), OB Discharge Report Discharge Attestations FIBERGLASS DOWEL DRAWING OPERATOR Time Spent in Discharge Care*: greater than 30 min Coding Level of Care Code Acute Auto Rebuilder for Bri Sage
[2020-05-23 16:30] VITALS: BP 132/63; PULSE 61; RESP 18; TEMP 36.7; O2SAT 98
== END 2020-05-23 16:35 | disposition home or self-care (01) ==
LOC: OBGYN 14:12
PROVIDERS: Admitting Provider Obstetrics & Gynecology; PCP Nurse Practitioner; Visit Provider Obstetrics & Gynecology
PROC: (CPT 57120; principal; 2020-05-22 10:20)
PROC: (CPT 57288; 2020-05-22 10:20)
DX: N81.3 Complete uterovaginal prolapse (principal); F41.9 Anxiety disorder, unspecified; F32.9 Major depressive disorder, single episode, unspecified; E11.65 Type 2 diabetes mellitus with hyperglycemia; Z79.4 Long term (current) use of insulin; Z83.3 Family history of diabetes mellitus; Z82.3 Family history of stroke; Z82.49 Family history of ischemic heart disease and other diseases of the circulatory system; I10 Essential (primary) hypertension; I48.91 Unspecified atrial fibrillation; E66.01 Morbid (severe) obesity due to excess calories; Z68.41 Body mass index [BMI] 40.0-44.9, adult; F03.90 Unspecified dementia, unspecified severity, without behavioral disturbance, psychotic disturbance, mood disturbance, and anxiety; E03.9 Hypothyroidism, unspecified
CPT/HCPCS: 57120; 57288; 36415; 36416; 51798; 80053; 81003; 82962; 85025; 85027; 86850; 86900; 96365; 96372; 97110; 97116; 97162; C1713; G0378; J0330; J1650; J1885; J1940; J2405; J2704; J3010; J3370; J3490; J7030; J7040; J7050

== ENCOUNTER → 2020-08-14 09:26 | Outpatient (BNVA) | payer MEDICARE, MEDICAID, SELFPAY | PROVIDERS: PCP Nurse Practitioner; Visit Provider Nurse Practitioner | DX: E03.9 Hypothyroidism, unspecified (principal); I10 Essential (primary) hypertension; E11.65 Type 2 diabetes mellitus with hyperglycemia; I48.91 Unspecified atrial fibrillation | CPT/HCPCS: 80053; 80061; 83036; 83735; 84439; 84443; 85025 ==

== ENCOUNTER → 2020-11-28 14:31 | Outpatient (BNVA) | payer MEDICARE, MEDICAID, SELFPAY | PROVIDERS: PCP Nurse Practitioner; Visit Provider Nurse Practitioner | DX: E11.65 Type 2 diabetes mellitus with hyperglycemia (principal); F03.90 Unspecified dementia, unspecified severity, without behavioral disturbance, psychotic disturbance, mood disturbance, and anxiety | CPT/HCPCS: 80053; 82607; 83036; 84443 ==

== ENCOUNTER → 2021-04-30 12:08 | Outpatient (BNVA) | payer MEDICARE, MEDICAID, SELFPAY | PROVIDERS: PCP Nurse Practitioner; Visit Provider Nurse Practitioner | DX: I10 Essential (primary) hypertension (principal) | CPT/HCPCS: 80053; 80061; 84439; 84443; 85025 ==

== ENCOUNTER → 2022-04-15 09:04 | Outpatient (BNVA) | payer MEDICARE, MEDICAID, SELFPAY | PROVIDERS: PCP Nurse Practitioner; Visit Provider Nurse Practitioner | DX: E03.9 Hypothyroidism, unspecified (principal); E11.65 Type 2 diabetes mellitus with hyperglycemia | CPT/HCPCS: 80053; 83036; 84443 ==

== ENCOUNTER 2022-08-14 14:40 | Outpatient (CLI) | payer MEDICARE, MEDICAID, SELFPAY ==
--- NOTE | 2022-08-14 15:18 | XRR_ITS ---
PROCEDURE INFORMATION: Exam: XR Abdomen Exam date and time: 08/14/2022 3:29 PM Age: 82 years old Clinical indication: Abdominal pain; Prior surgery; Surgery date: 6+ months; Surgery type: Bladder; Additional info: K59.01 - slow transit constipation; Chronic pain in low back, hips, and abdomen TECHNIQUE: Imaging protocol: Radiologic exam of the abdomen. Views: Frontal supine view of the abdomen. 1 View. COMPARISON: CT abdomen pelvis con [id number] 10/10/2019 3:21 PM FINDINGS: Gastrointestinal tract: [id number] constipation without bowel dilation to obstruction. Organs: Small right hemipelvis 16 mm calcified fibroid suspected. Bones/joints: Multilevel disc space narrowing and productive degenerative endplate changes throughout the spine. XR/XR abdomen 1V* [id number] IMPRESSION: 1. [id number]-[id number] constipation without bowel dilation to obstruction. 2. Multilevel disc space narrowing and productive degenerative endplate changes throughout the spine. 3. Small right hemipelvis 16 mm calcified fibroid suspected.
--- NOTE | 2022-08-14 15:18 | XRR_ITS ---
PROCEDURE INFORMATION: Exam: XR Left Hip Exam date and time: 08/14/2022 3:29 PM Age: 82 years old Clinical indication: Hip pain; Bilateral; Prior surgery; Surgery date: 6+ months; Surgery type: Bladder surgery; Additional info: M25.552 - pain in left hip; Chronic pain in low back, hips, and abdomen. TECHNIQUE: Imaging protocol: Radiologic exam of the left hip. Views: 2 or 3 views hip with pelvis when performed. COMPARISON: CT abdomen pelvis wo con [id number] 10/10/2019 3:21 PM FINDINGS: Bones/joints: Minimal right hip osteoarthritis. Soft tissues: Unremarkable. Vasculature: Scattered vascular calcifications. XR/XR hip LT 2-3V wo/w pel* [id number] IMPRESSION: 1. Minimal right hip osteoarthritis. 2. Scattered vascular calcifications.
--- NOTE | 2022-08-14 15:18 | XRR_ITS ---
PROCEDURE INFORMATION: Exam: XR Lumbosacral Spine Exam date and time: 08/14/2022 3:29 PM Age: 82 years old Clinical indication: Low back pain; Prior surgery; Surgery date: 6+ months; Surgery type: Bladder surgery; Patient HX: Chronic pain in low back, hips, and abdomen; Additional info: M54.50 - low back pain, unspecified TECHNIQUE: Imaging protocol: Radiologic exam of the lumbosacral spine. Views: 2 or 3 views. COMPARISON: CT abdomen pelvis wo con [id number] 10/10/2019 3:21 PM FINDINGS: Bones/joints: Multilevel moderate to severe disc space narrowing with productive degenerative endplate changes throughout the spine, most significant at L3-L4, L4-L5 and L5/S1. Soft tissues: Unremarkable. Vasculature: Scattered vascular calcifications. XR/XR lumbar spine 2-3V* [id number] IMPRESSION: 1. Multilevel moderate to severe disc space narrowing with productive degenerative endplate changes throughout the spine, most significant at L3-L4, L4-L5 and L5/S1. 2. Scattered vascular calcifications.
== END 2022-08-14 14:41 | disposition home or self-care (01) ==
LOC: RAD 14:44
PROVIDERS: PCP Nurse Practitioner; Visit Provider Nurse Practitioner
DX: G89.29 Other chronic pain (principal); M54.50 Low back pain, unspecified; K59.01 Slow transit constipation; M79.605 Pain in left leg; M25.552 Pain in left hip; M16.11 Unilateral primary osteoarthritis, right hip
CPT/HCPCS: 72100; 73502; 74018

== ENCOUNTER 2023-04-09 19:20 | Emergency (ER) | payer MEDICARE, MEDICAID, SELFPAY ==
[2023-04-09 19:35] VITALS: BP 139/57; PULSE 58; RESP 16; O2SAT 99
--- NOTE | 2023-04-09 21:10 | ED_ITS ---
HPI - Dental/Oral General: Chief complaint: Dental/Oral Stated complaint: dental removal on 04/01/23 bleeding now Time Seen by Provider: 04/09/23 19:46 History of Present Illness: 83-year-old female presents to the emerg ency department stating that she had 3 teeth on the upper right of her jaw pulled approximately 8 days ago. The patient is on anticoagulation and stated that she was advised to restart her apixaban and at that time she started having bleeding from her tooth extraction site. She denies nausea or vomiting. She denies difficulty with swallowing or airway compromise. Review of Systems General: Reports: 10 or more systems reviewed and unremarkable except in HPI and below ENMT: Reports: bleeding gums, dental pain and other (Dental bleeding) FORMERLY [facility], [facility]–1983 ED PFSH: Medical History Obesity (BMI 30-39.9) DDD (degenerative disc disease), lumbar Lumbar pain with radiation down left leg Restless leg Hypothyroid Atrial fibrillation With slow ventricular response. No pertinent past medical history Denies asthma, seizures, bleeding or clotting disorders, DVT/PE. PCP: ROSALVA Mcmillan Lives in assisted living facility Essential (primary) hypertension Anxiety and depression Dependent on walker for ambulation Surgical History H/O vaginal surgery 05/22/2020- Colpocleisis, single incision mid urethral sling and cystoscopy performed by Dr. Varner at [facility] History of colonoscopy 2007 Negative Family History Mother Diabetes Stroke Father Heart disease Sister Breast cancer diagnosed at age 45 Denies family history of Colon cancer Ovarian cancer Hyperlipidemia Hypertension Uterine cancer Thyroid disease Social History Smoking and tobacco/nicotine status: never used tobacco/nicotine Second hand smoke exposure: No Alcohol intake: never Substance/Drug Use: never Housing: Assisted Living Facility Marital status: / Physical Exam Narrative: EXAM NARRATIVE: Constitutional: the patient appears well nourished and of normal development. Vital signs as documented. No acute distress at present. Alert and oriented-to person, place, time and situation. Head, eyes, ears, nose, mouth, throat: Normocephalic, atraumatic. Pupils-equal, round, reactive to light. No scleral icterus. Normal-appearing external ears. Normal appearing nasal turbinates, no drainage. No obvious oral lesions, posterior oropharynx without erythema or exudates. Right upper gums actively bleeding from all 3 tooth extraction sites. Neck: Supple, trachea is midline, no lymphadenopathy, no jugular venous distension, thyromegaly, or carotid bruits. Carotid upstrokes are brisk bilaterally. Lungs: clear to auscultation to all lung [place]. Symmetrical rise and fall of chest, no obvious signs of increased work of breathing at present. Cardiac: Regular rate and rhythm, positive S1, S2. No murmurs, rubs or gallops that I can appreciate Abdomen: Soft, non-tender to palpation, normal active bowel sounds to all quadrants. No palpable masses, no organomegaly and abdominal bruits. Extremities: 2+ pulses in the upper extremities that are equal bilaterally, 2+ pulses in the lower extremities that are equal bilaterally. Non-edematous. Moves all extremities well, sensation to all extremities are noted. Skin: Warm, dry, intact. Course Vital Signs: Vital signs: Vital Signs Pulse Rate 59 L 04/09/23 21:50 Respiratory Rate 18 04/09/23 21:50 Blood Pressure 139/57 04/09/23 19:35 Pulse Oximetry 98 04/09/23 21:50 Oxygen Delivery Me thod Room Air 04/09/23 19:35 MDM - Dental/Oral Medical Decision Making Physical exam completed and documented I will provide 4 x 4 gauze and direct pressure to control bleeding. Medical Records I reviewed the patient's medical records. No radiology studies performed this visit Discharge Plan Discharge Patient Disposition: Home Clinical Impression: Postoperative bleeding from mouth Condition: Stable Prescriptions: No Action alum-mag hydroxide-simeth [Reina-Lanta] 200-200-20 mg/5 mL suspension 10 - 20 ml PO QID PRN (Reason: Heartburn) Refresh Tears 0.5 % drops 1 drop ophthalmic (eye) TID PRN (Reason: unknown) Vagisil 5-2 % cream 1 applic topical BID Eliquis 5 mg tablet 5 mg PO BID (DME) hydrocolloid dressing [DuoDERM CGF Dressing] 4 X 4 bandage See Rx Instructions .Route Qty: 5 5RF Rx Instructions: apply to skin daily as needed dextromethorphan-guaifenesin [Robafen DM Cough] 10-100 mg/5 mL liquid 10 ml PO Q4H PRN (Reason: Cough) triamcinolone acetonide 0.1 % cream 1 applic TOPICAL BID PRN (Reason: unknown) omeprazole 20 mg capsule,delayed release(DR/EC) 20 mg PO DAILY@08 acetaminophen [Tylenol Extra Strength] 500 mg tablet 500 - 1,000 mg PO Q4H MDD 3000mg PRN (Reason: Pain) Lactobacillus acidophilus [Acidophilus] Capsule 2,000 mmu cells PO BID levothyroxine 125 mcg tablet 125 mcg PO DAILY Qty: 30 2RF Rx Instructions: Dose increase (DME) heavy duty wheelchair (K0006) See Rx Instructions .Route .MEDSUPPLY Qty: 1 0RF Rx Instructions: As directed duloxetine 30 mg capsule,delayed release(DR/EC) 30 mg PO BID Qty: 60 0RF fluticasone propionate [Flonase Allergy Relief] 50 mcg/actuation spray,suspension 1 spray intranasal Q12H Qty: 16 2RF Rx Instructions: administer into each nostril zonisamide 100 mg capsule 100 mg PO BID Qty: 60 2RF methenamine hippurate 1 gram tablet 1 g PO Q12H Qty: 60 5RF Rx Instructions: take with Vitamin C 2 times day. Stop Ceftin BID guaifenesin [Mucinex] 600 mg tablet extended release 12hr 600 mg PO Q12H Qty: 20 0RF Rx Instructions: use to 10 days then stop ascorbic acid (vitamin C) 1,000 mg capsule 1 g PO .ever 12 hours Qty: 60 5RF aripiprazole [Abilify] 10 mg tablet 10 mg PO DAILY Qty: 30 5RF silver 200 mcg/gram gel 1 applic topical Q12H Qty: 90 1RF Rx Instructions: apply under breast bilateral and abdomen apron until skin heal sennosides-docusate sodium [Senna-S] 8.6-50 mg tablet 1 tab-cap PO DAILY Qty: 30 2RF lisinopril 10 mg tablet 10 mg PO DAILY@08 Qty: 1 0RF Rx Instructions: HOLD lisinopril due to hypotension and monitor blood pressure nystatin [Nyamyc] 100,000 unit/gram powder 1 applic TOPICAL BID PRN (Reason: rash ) Qty: 30 0RF hydrocortisone [Anusol-HC] 2.5 % cream with perineal applicator 1 applic ND BID PRN (Reason: hemorrhoids) Qty: 30 0RF magnesium hydroxide [Milk of Magnesia] 400 mg/5 mL suspension 15 ml PO DAILY Qty: 355 0RF Rx Instructions: Do NOT use anti diarrhea medication mupirocin 2 % ointment 1 applic topical .at bedtime Qty: 22 0RF docosanol [Abreva] 10 % cream 1 applic TOPICAL .every 2 hours PRN (Reason: cold sores) Qty: 2 2RF cholestyramine (with sugar) 4 gram powder See Rx Instructions .ROUTE .COMPLEX Qty: 378 0RF Rx Instructions: dissolve one scoopful in 6 oz of water tid prn furosemide 40 mg tablet 40 mg PO BID Qty: 60 3RF potassium chloride 20 mEq tablet extended release 20 meq PO BID Qty: 60 3RF (DME) [id number] Large overnight pull up See Rx Instructions .Route .MEDSUPPLY Qty: 180 11RF Rx Instructions: As directed 6 daily/186 monthly change in size to large from extra large 99 months Hair,Skin and Nails Tablet 1 tab PO DAILY@08 Qty: 30 5RF Sarna Original 0.5-0.5 % Lotion See Rx Instructions .ROUTE .COMPLEX Rx Instructions: apply topically to affected areas bid@08,20 (may keep at bedside) omega 2-lvn-sdy-fish oil [Fish Oil] 1,000 mg (120 mg-180 mg) capsule 1 cap PO BID@08,20 hydrocortisone 1 % Cream 1 applic TOPICAL BID PRN (Reason: unknown) hydrocodone-acetaminophen 7.5-325 mg tablet 1 tab PO DAILY MDD 3000mg from all sources PRN (Reason: Pain) Discharge Orders: Discharge ED (Routine); Ordered 04/09/23 Ordered By: Paco Candelario Referrals: Jaciel Nelson, HOME SERVICE CONSULTANT-C [Primary Care Provider] - Discharge Diet: Advance as tolerated Discharge Activity: Resume usual activity Patient Instructions: Opioid Safety, Pain Management Activity Restrictions/Additional Instructions: Activity Restrictions/Additional Instructions: Thank you for choosing [facility] for your healthcare needs today. Please realize that you were seen in the Emergency Department and that we are providing you with an emergency medical screening exam and this may not be a complete and all inclusive of all the testing and or medical work-up that you may need to determine your ailment or severity of your illness. It is very important that you follow-up as instructed with your Primary care provider or Specialist for additional evaluation and to discuss your medical treatment plan. You may return to the Emergency Department should you have concerns or if your condition changes or worsens in any way. Coding Level of Care Code ED Cottonseed Meat Presser for Bri Sage
[2023-04-09 21:50] VITALS: PULSE 59; RESP 18; O2SAT 98
== END 2023-04-09 21:46 | disposition home or self-care (01) ==
PROVIDERS: Emergency Provider Internal Medicine; PCP Nurse Practitioner
DX: K91.840 Postprocedural hemorrhage of a digestive system organ or structure following a digestive system procedure (principal); Z79.01 Long term (current) use of anticoagulants; Z98.818 Other dental procedure status; I10 Essential (primary) hypertension
CPT/HCPCS: 99282

== ENCOUNTER → 2023-05-06 09:38 | Outpatient (BNVA) | payer MEDICARE, MEDICAID, SELFPAY | PROVIDERS: PCP Nurse Practitioner; Visit Provider Nurse Practitioner | DX: N39.0 Urinary tract infection, site not specified (principal) | CPT/HCPCS: 81000 ==

== ENCOUNTER 2023-05-28 13:12 | Inpatient (IN) | payer MEDICARE, MEDICAID, SELFPAY ==
[2023-05-28] VITALS (69 sets, daily range): BP systolic 124–187; BP diastolic 47–94; PULSE 29–84; RESP 10–24; TEMP 36.7; O2SAT 81–100; BMI 33.7
--- NOTE | 2023-05-28 13:16 | CT_ITS ---
WS: [id number] CT HEAD TECHNIQUE: Noncontrast CT of the head obtained from the skullbase to the vertex. CLINICAL INFORMATION: AMS COMPARISON: None. DLP: 1066.[address] scans at [facility] use at least one of these dose optimization techniques: automated e xposure control; mA and/or kV adjustment per patient size (includes targeted exams where dose is matc hed to clinical indication); or iterative reconstruction. FINDINGS: No evidence of intracranial hemorrhage or mass effect. Ventricular system and basal cisterns are de la rosa nt. Moderate small vessel changes with mild parenchymal volume loss. Tiny chronic lacunar infarcts bi lateral basal ganglia and RIGHT caudate. No extra-axial fluid collections. No evidence of mass or mas s effect. Cavernous carotid calcification. Mild polypoid mucosal thickening RIGHT maxillary sinus. Mild mucosal thickening in the ethmoid air ce lls. Mild mucosal thickening RIGHT mastoid tip. Normal posterior nasopharynx. IMPRESSION: 1. No evidence of intracranial hemorrhage or mass effect. 2. Moderate small vessel changes with mild parenchymal volume loss. 3. Intracranial vascular calcification. 4. No acute intracranial findings.
--- NOTE | 2023-05-28 13:16 | XR_ITS ---
WS: [id number] Examination: XR chest 1V portable [id number] Reason for Exam: dyspnea/cough Date: May 28, 2023 Comparison: March 30, 2020 Findings: The heart is prominent in size. The mediastinum is not widened. There is no pulmonary edema or large pleural effusion Chronic changes are present without dense consolidation. Impression: The heart is prominent in size with mild chronic changes noted in the lungs..
--- NOTE | 2023-05-28 13:17 | ECG_ITS ---
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 Measurements Intervals [place] Rate: 62 P: 59 ID: [id number] QRS: -21 QRSD: 125 T: 70 QT: 430 QTc: 438 Interpretive Statements SINUS RHYTHM WITH FIRST DEGREE AV BLOCK POSSIBLE LATERAL MYOCARDIAL INFARCTION , OF INDETERMINATE AGE [30 ms Q WAVE IN I/aVL/V5/V6] Compared to ECG 03/28/2020 03:06:26 First degree AV block now present Myocardial infarct finding now present Atrial fibrillation no longer present Intraventricular conduction delay no longer present T-wave abnormality no longer present Electronically Signed On 05-28-2023 17:08:41 CDT by Jayce Dickson M.D. [email or web address]/store/[id number] f
--- NOTE | 2023-05-28 13:36 | W.ED.AMS ---
HPI - Altered Mental Status General: Chief Complaint: Altered Mental Status Stated Complaint: ams with weakness Time Seen by Provider: 05/28/23 13:15 Source: patient Mode of arrival: ambulatory History of Present Illness: 83-year-old female who presents to the emergency room from [facility]. They found around 1130 slumped over in her wheelchair drooling. On arrival here she has no deficits they stated there she was very tired slumped over to the right she stated that she become very tired seemed somewhat altered to them. Family member at the bedside states her speech is at baseline she usually uses a wheelchair to get around does not ambulate normally. She has complained of some neck discomfort. Family member also noted some cognitive decline over the last several weeks. She has a little difficulty with word finding which the family member states has been the developing problem she states it is very difficult to have a sustained conversation with her because of this. At this time family member feels like the patient is at what her baseline has been developing to over the last several weeks and is not acutely or suddenly changed. MD complaint: altered mental status Timing confirmed by: family member Associated symptoms: Deny auditory hallucinations or visual hallucinations Review of Systems Const: Denies: fever(s) or chills Card: Denies: chest pain Resp: Denies: dyspnea GI: Denies: abdominal pain : Denies: dysuria, urinary frequency or urinary urgency Musc: Denies: neck pain or back pain Skin/Breast: Denies: rash Psych: Denies: visual hallucinations or auditory hallucinations [facility] ED PFSH: Medical History Obesity (BMI 30-39.9) DDD (degenerative disc disease), lumbar Lumbar pain with radiation down left leg Restless leg Hypothyroid Atrial fibrillation With slow ventricular response. No pertinent past medical history Denies asthma, seizures, bleeding or clotting disorders, DVT/PE. PCP: ROSALVA Mcmillan Lives in assisted living facility Essential (primary) hypertension Anxiety and depression Dependent on walker for ambulation Surgical History H/O vaginal surgery 05/22/2020- Colpocleisis, single incision mid urethral sling and cystoscopy performed by Dr. Albino at [facility] History of colonoscopy 2008 Negative Family History Mother Diabetes Stroke Father Heart disease Sister Breast cancer diagnosed at age 45 Denies family history of Colon cancer Ovarian cancer Hyperlipidemia Hypertension Uterine cancer Thyroid disease Social History Smoking and tobacco/nicotine status: never used tobacco/nicotine Second hand smoke exposure: No Alcohol intake: never Substance/Drug Use: never Housing: Assisted Living Facility Marital status: / Physical Exam Const: GENERAL APPEARANCE: cooperative and comfortable ORIENTATION/CONSCIOUSNESS: Yes awake, Yes oriented to person and Yes oriented to place HENMT: COMMON NORMALS: normocephalic, atraumatic and hearing grossly normal bilaterally HEAD & SCALP: normocephalic and atraumatic Resp: COMMON NORMALS: normal respiratory effort, No retractions, No use of accessory muscles and clear to auscultation bilaterally AUSCULTATION: clear to auscultation bilaterally Cardio: COMMON NORMALS: regular rate, regular rhythm and No murmurs present (Cardio) RATE: regular rate RHYTHM: regular rhythm GI: COMMON NORMALS: Soft to palpation and No hepatosplenomegaly present AUSCULTATION: Yes normoactive bowel sounds PALPATION: Yes Soft to palpation, No Tenderness to palpation present (GI), No Guarding due to palpation present (GI) and Yes No hepatosplenomegaly present Extremity: COMMON NORMALS: normal to inspection, capillary refill normal, no clubbing, cyanosis or edema, no calf tenderness and no pedal edema Neuro: SENSORIUM/ORIENTATION: Yes oriented to person and Yes oriented to place Skin: COMMON NORMALS: no rashes or lesions noted GENERAL SKIN EXAM: no rashes or lesions noted Course Vital Signs: Vital signs: Vital Signs Temperature 98.1 F 05/28/23 13:16 Pulse Rate 52 L 05/28/23 17:35 Respiratory Rate 14 05/28/23 17:35 Blood Pressure 187/88 05/28/23 17:35 Pulse Oximetry 97 05/28/23 17:35 Oxygen Delivery Me thod Room Air 05/28/23 13:16 MDM - Altered Mental Status Medical Decision Making Mobitz type II block along with a cystitis. Patient has had a deterioration of her condition over the last couple of weeks. Discussion with the family. They are still interested in going forward with placing a Guillen catheter. Patient given meropenem cultures done discussed with hospitalist and electrical electronics engineer orders written Medical Records I reviewed the patient's medical records. Lab Data I reviewed the patient's lab results. 05/28/23 14:07 05/28/23 14:07 Laboratory Results WBC 7.11 10^3/uL (3.29-11.43) 05/28/23 14:07 RBC 4.52 10^6/uL (3.85-5.65) 05/28/23 14:07 Hgb 13.60 g/dL (11.27-16.99) 05/28/23 14:07 Hct 42.9 % (36-47) 05/28/23 14:07 MCV 94.9 fl (85-98) 05/28/23 14:07 MCH 30.1 pg (27-33) 05/28/23 14:07 MCHC 31.7 g/dL (30-55) 05/28/23 14:07 RDW 13.0 % (12.1-15.1) 05/28/23 14:07 Plt Count 208 10^3/cmm (157-399) 05/28/23 14:07 MPV 10.1 fL (7.4-10.4) 05/28/23 14:07 Neut % (Auto) 65.2 % 05/28/23 14:07 Lymph % (Auto) 23.8 % 05/28/23 14:07 [place] % (Auto) 7.6 % 05/28/23 14:07 Eos % (Auto) 2.0 % 05/28/23 14:07 Baso % (Auto) 1.1 % 05/28/23 14:07 Neut # (Auto) 4.64 10^3/uL (1.8-7.7) 05/28/23 14:07 Lymph # (Auto) 1.7 10^3/uL (0.8-4.8) 05/28/23 14:07 [place] # (Auto) 0.5 10^3/uL (0.2-0.9) 05/28/23 14:07 Eos # (Auto) 0.1 10^3/uL (0.0-0.8) 05/28/23 14:07 Baso # (Auto) 0.1 10^3/uL (0.0-0.1) 05/28/23 14:07 Nucleated RBC % (auto) 0 % 05/28/23 14:07 Nucleated RBCs # 0.0 /100WBC 05/28/23 14:07 Sodium 138 mmol/L (136-145) 05/28/23 14:07 Potassium 4.9 mmol/L (3.5-5.1) 05/28/23 14:07 Chloride 102 mmol/L (98-107) 05/28/23 14:07 Carbon Dioxide 26 mmol/L (22-29) 05/28/23 14:07 Anion Gap 14.9 (5-19) 05/28/23 14:07 BUN 22 mg/dL (8-23) 05/28/23 14:07 Creatinine 1.0 mg/dL (0.5-0.9) H 05/28/23 14:07 GFR Calculation Not Reportable 05/28/23 14:07 Glucose 121 mg/dL (65-115) H 05/28/23 14:07 Calculated Osmolality 291 mOsm/kg (285-295) 05/28/23 14:07 Calcium 11.4 mg/dL (8.5-10.5) H 05/28/23 14:07 Total Bilirubin 0.3 mg/dL (0.15-1.2) 05/28/23 14:07 AST 16 U/L (0-32) 05/28/23 14:07 ALT 15 U/L (0-33) 05/28/23 14:07 Alkaline Phosphatase 111 U/L (35-105) H 05/28/23 14:07 Troponin T Baseline 29 ng/L (0-10) H 05/28/23 14:07 Troponin T 120 Minute 28.53 ng/L (0-10) H 05/28/23 15:35 Delta Troponin T -0.47 ABS# (0-10) L 05/28/23 15:35 Total Protein 7.1 g/dL (6.6-8.7) 05/28/23 14:07 Albumin 4.3 g/dL (3.5-5.2) 05/28/23 14:07 Globulin 2.8 g/dL (1.3-4.6) 05/28/23 14:07 Urine Color Light yellow (Yellow) 05/28/23 13:40 Urine Appearance Cloudy (CLEAR) A 05/28/23 13:40 Urine pH 6 (5-7) 05/28/23 13:40 Ur Specific [place] 1.015 (1.005-1.030) 05/28/23 13:40 Urine Protein Neg (Negative) 05/28/23 13:40 Urine Glucose (UA) Norm (Normal) 05/28/23 13:40 Urine Ketones Negative (Negative) 05/28/23 13:40 Urine Blood Neg (Negative) 05/28/23 13:40 Urine Nitrate Negative (Negative) 05/28/23 13:40 Urine Bilirubin Neg (Negative) 05/28/23 13:40 Urine Urobilinogen Neg mg/dL (Negative) 05/28/23 13:40 Ur Leukocyte Esterase 2+ (Negative) H 05/28/23 13:40 Urine RBC 0-4 /hpf (0-2) H 05/28/23 13:40 Urine WBC Too numerous to cnt /hpf (0-5) H 05/28/23 13:40 Ur Squamous Epith Cells 0-4 /hpf (0-5) H 05/28/23 13:40 Ur Transition Epith Cell 0-4 /hpf 05/28/23 13:40 Amorphous Sediment Not Reportable 05/28/23 13:40 Urine Bacteria Trace /hpf (NONE) 05/28/23 13:40 Urine Mucus Trace /hpf 05/28/23 13:40 Urine Yeast 2+ /hpf H 05/28/23 13:40 All radiology interpretation(s) finalized by discharge Discharge Plan Discharge Patient Disposition: Admitted As Inpatient Admit Provider: Jalen Roberson Clinical Impression: Mobitz (type) II atrioventricular block, Recurrent UTI Condition: Stable Coding Level of Care Code ED Embedded Software Developer for Bri Sage NIH stroke score NIHSS Level Of Consciousness - 1a: 0 Level Of Consciousness Questions - 1b: Both Correct Level Of Consciousness Commands - 1c: Both Correct Best Gaze - 2: Normal Visual Neri - 3: No Visual Loss Facial Palsy - 4: Normal Motor Arm Right - 5: No Drift Motor Arm Left - 5: No Drift Motor Leg Right - 6: No Drift Motor Leg Left - 6: No Drift Limb Ataxia - 7: Absent Sensory - 8: Normal Best Language - 9: No Aphasia Dysarthia - 10: Mild/Moderate Dysarthia Extinction And Inattention - 11: 0 Score Total Score: 1
--- NOTE | 2023-05-28 13:57 | ECG_ITS ---
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 Measurements Intervals [place] Rate: 41 P: 0 ID: [id number] QRS: -28 QRSD: 124 T: 43 QT: 471 QTc: 389 Interpretive Statements SINUS BRADYCARDIA WITH 2ND DEGREE AV BLOCK, 2:1 OR MOBITZ TYPE II PROBABLE LATERAL MYOCARDIAL INFARCTION , OF INDETERMINATE AGE [35 ms Q WAVE IN I/aVL/V5/V6] CRITICAL TEST RESULT Compared to ECG 05/28/2023 13:29:31 Sinus rhythm no longer present First degree AV block no longer present Myocardial infarct finding still present Electronically Signed On 05-28-2023 17:38:59 CDT by Jayce Dickson M.D. [email or web address] [email or web address].[employer]/store/[id number]
--- NOTE | 2023-05-28 13:59 | PC.PHAR ---
pts is from [facility] [phone] melgar med aid from [facility] states pt had all am meds states the pt has been out of the probiotic since 05/25/23 but is still taking the acidophilus-states the pt is still taking the cefdinir 300mg bid and hiprex 1gm bid-
[2023-05-28 14:08] LABS: Add Urine Microscopic? YES; Bilirubin Urine Neg (Negative); Blood Urine Neg (Negative); Glucose Urine UA Norm (Normal); Ketones Urine Negative (Negative); Leukocyte Esterase Urine 2+ (Negative); Nitrate Urine Negative (Negative); Protein Urine Neg (Negative); Specific Gravity, Urine 1.015 (1.005-1.030); Urine Appearance Cloudy (CLEAR); Urine Color Light yellow (Yellow); Urobilinogen Urine Neg (Negative); pH Urine 6 (5-7)
[2023-05-28 14:10] LABS: Bacteria Urine TRACE /hpf; Mucus Urine TRACE /hpf; RBC Urine 0-4 /hpf (0-2); Squamous Epithelial Cell Urine 0-4 /hpf (0-5); Transitional Epi Cells Urine 0-4 /hpf; WBC Urine TOO NUMEROUS TO CNT /hpf (0-5)
[2023-05-28 14:11] LABS: Add Urine Culture? Yes
[2023-05-28] MEDS: sodium chloride 0.9% 1,000 ML 999 ML IV (14:12)
[2023-05-28 14:14] LABS: Basophils # 0.1 10^3/uL (0.0-0.1); Basophils % 1.1 %; Eosinophils # 0.1 10^3/uL (0.0-0.8); Hematocrit 42.9 % (36-47); Lymphocytes # 1.7 10^3/uL (0.8-4.8); Lymphocytes % 23.8 %; Mean Corpuscular HGB Conc 31.7 g/dL (30-55); Mean Corpuscular Hemoglobin 30.1 pg (27-33); Mean Corpuscular Volume 94.9 fl (85-98); Mean Platelet Volume 10.1 fL (7.4-10.4); Monocytes # 0.5 10^3/uL (0.2-0.9); Monocytes % 7.6 %; Neutrophils # 4.64 10^3/uL (1.8-7.7); Neutrophils % 65.2 %; Nucleated Red Blood Cells % 0 %; Platelet Count 208 10^3/cmm (157-399); Red Blood Count 4.52 10^6/uL (3.85-5.65); White Blood Count 7.11 10^3/uL (3.29-11.43)
[2023-05-28 14:37] LABS: Troponin(5th) Baseline 29 ng/L (0-10)
[2023-05-28 14:39] LABS: Alanine Aminotransferase 15 U/L (0-33); Albumin Level 4.3 g/dL (3.5-5.2); Alkaline Phosphatase 111 U/L (35-105); Anion Gap 14.9 (5-19); Aspartate Amino Transferase 16 U/L (0-32); Blood Urea Nitrogen 22 mg/dL (8-23); Calcium 11.4 mg/dL (8.5-10.5); Carbon Dioxide 26 mmol/L (22-29); Chloride 102 mmol/L (98-107); Creatinine Clr Calc Pharmacy 47.7983; Globulin 2.8 g/dL (1.3-4.6); Glucose 121 mg/dL (65-115); Osmolality Calculated 291 mOsm/kg (285-295); Potassium 4.9 mmol/L (3.5-5.1); Sodium 138 mmol/L (136-145); Total Bilirubin 0.3 mg/dL (0.15-1.2); Total Protein 7.1 g/dL (6.6-8.7)
--- NOTE | 2023-05-28 15:17 | ECG_ITS ---
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 Measurements Intervals [place] Rate: 35 P: 0 ND: 0 QRS: -33 QRSD: 129 T: 64 QT: 454 QTc: 347 Interpretive Statements Sinus rhythm with possible second-degree type 1 AV block LEFT AXIS DEVIATION [QRS AXIS < -30] PROBABLE LATERAL MYOCARDIAL INFARCTION , OF INDETERMINATE AGE [35 ms Q WAVE IN I/aVL/V5/V6] CRITICAL TEST RESULT Compared to ECG 05/28/2023 13:29:31 Left-axis deviation now present Myocardial infarct finding still present Electronically Signed On 05-28-2023 17:40:16 CDT by Jayce Dickson M.D. [id number]
[2023-05-28 15:59] LABS: Troponin 5 2HR 28.53 ng/L (0-10)
[2023-05-28 16:02] LABS: Troponin 5 2HR Delta -0.47 ABS# (0-10)
[2023-05-28] MEDS: meropenem 1,000 MG in sodium chloride 0.9% (plus) 50 ML 100 MG IV (16:03)
--- NOTE | 2023-05-28 16:44 | P.CONIM_ITS ---
Providers/Reason For Consult 2 Consulting Physician/Specialty*: Poncho Kuhn MD/ Cardiology Reason for Consult*: Bradycardia Requesting Physician: Dr Montoya Attending Physician: Jalen Roberson DO Primary Care Provider: ERIKA Jordan History of Present Illness History of Present Illness Rosalva Hyatt is a 83 year old female with past medical history of atrial fibrillation who was brought from assisted living as she was found slumped over. Patient states she fell very weak transferring to the wheelchair. In the ER she was found to have significant bradycardia. EKGs have shown Mobitz type II second-degree AV block and atrial fibrillation with slow ventricular rate. She is not physically very active. Blood pressure is stable. She is not feeling dizzy at this time. Heart rate is fluctuating from low 30s to 60s. She is not on rate controlling medications. Review of Systems 2 Const: Denies: fever(s) or chills Eyes: Denies: change in vision ENMT: Denies: throat pain or nasal congestion Card: Denies: chest pain or palpitations Resp: Denies: dyspnea or productive cough GI: Denies: abdominal pain, nausea, vomiting or change in stool character : Reports: dysuria Musc: Denies: back pain or extremity pain Skin/Breast: Denies: rash or lesions Neuro: Denies: headache(s) or dizziness Psych: Denies: anxiety or depression Levon/Lymph: Denies: easy bruising or easy bleeding Medications/Allergies Home Medications Medication Instructions Recorded Confirmed Last Taken Type omeprazole 20 mg capsule,delayed 20 mg PO DAILY@08 03/10/19 05/28/23 05/28/23 History release acetaminophen 500 mg tablet 500 - 1,000 mg PO .EVERY 4-6 HOURS 03/29/19 05/28/23 05/18/20 09:16 History (Tylenol Extra Strength) PRN Pain hydrocortisone 1 % topical cream 1 applic topical BID PRN unknown 03/27/20 05/28/23 05/22/20 10:01 History benzocaine 5 %-resorcinol 2 % 1 applic topical BID@05/20/20 05/28/23 Unknown History topical cream (Vagisil) apixaban 5 mg tablet (Eliquis) 5 mg PO BID@06/04/20 05/28/23 05/28/23 History Lactobacillus acidophilus 1 cap PO BID@08,20 09/12/20 05/28/23 05/28/23 History (Acidophilus capsule) heavy duty wheelchair (K0006) #1 ea 07/06/21 05/28/23 Unknown Rx fluticasone propionate 50 1 spray intranasal Q12H #16 grams 07/01/22 05/28/23 05/28/23 Rx mcg/actuation nasal spray,suspension (Flonase Allergy Relief) nystatin 100,000 unit/gram topical 1 applic topical BID PRN rash #30 09/03/22 05/28/23 Unknown Rx powder (Nyamyc) grams T4527 Large overnight pull up #180 ea 12/09/22 05/28/23 Unknown Rx multivitamin with minerals 1 tab PO DAILY@08 #30 tabs 01/06/23 05/28/23 05/28/23 Rx (Hair,Skin and Nails tablet) methenamine hippurate 1 gram tablet 1 g PO Q12H #60 tabs 02/05/23 05/28/23 05/28/23 Rx terconazole 0.8 % vaginal cream 1 appful vaginal BEDTIME #20 grams 05/21/23 05/28/23 Unknown Rx L.acidophil-L.casei-B.bifid-B.longum-FOS 1 cap PO BID@,05/28/23 05/28/23 05/25/23 History 2 billion cell-50 mg capsule out since (Probiotic Blend) 05/25/23 aripiprazole 10 mg tablet (Abilify) 10 mg PO DAILY@05/28/23 05/28/23 05/28/23 History ascorbic acid (vitamin C) 1,000 mg 1,000 mg PO Q12H 05/28/23 05/28/23 05/28/23 History capsule cefdinir 300 mg capsule 300 mg PO Q12H 05/28/23 05/28/23 05/28/23 History duloxetine 30 mg capsule,delayed 30 mg PO BID@08,20 anxiety 05/28/23 05/28/23 05/28/23 History release furosemide 40 mg tablet 40 mg PO BID@08,14 05/28/23 05/28/23 05/28/23 History levothyroxine 125 mcg tablet 125 mcg PO DAILY@06 05/28/23 05/28/23 05/28/23 History lisinopril 5 mg tablet 5 - 10 mg PO DAILY 05/28/23 05/28/23 05/28/23 History magnesium hydroxide 400 mg/5 mL 30 - 60 ml PO DAILY PRN 05/28/23 05/28/23 Unknown History oral suspension (Dulcolax Constipation (magnesium hydroxide)) magnesium hydroxide 400 mg/5 mL 15 ml PO DAILY@05/28/23 05/28/23 05/28/23 History oral suspension (Milk of Magnesia) mupirocin 2 % topical ointment 1 applic topical BEDTIME@05/28/23 05/28/23 Unknown History nystatin 100,000 unit/gram topical 1 applic topical TID@,,05/28/23 05/28/23 05/28/23 History cream omega-3 fatty acids 1,000 mg 1,000 mg PO BID@08,05/28/23 05/28/23 05/28/23 History capsule potassium chloride 20 mEq 20 meq PO BID@,05/28/23 05/28/23 05/28/23 History tablet,extended release sennosides 8.6 mg-docusate sodium 1 tab-cap PO DAILY@05/28/23 05/28/23 05/28/23 History 50 mg tablet (Senna-S) silver sulfadiazine 1 % topical 1 applic topical BID@,05/28/23 05/28/23 Unknown History cream zonisamide 100 mg capsule 100 mg PO BID@,05/28/23 05/28/23 05/28/23 History Allergies Allergy/AdvReac Type Severity Reaction Status Date / Time amoxicillin [From Augmentin] Allergy Severe rash Verified 05/21/23 08:33 clavulanic acid Allergy Severe rash Verified 05/21/23 08:33 [From Augmentin] celecoxib [From Celebrex] Allergy DIARRHEA Verified 05/21/23 08:33 ciprofloxacin [From Cipro] Allergy RASH,ITCHIN Verified 05/21/23 08:33 G lidocaine Allergy Itching Verified 05/21/23 08:33 meloxicam [From Mobic] Allergy NA Verified 05/21/23 08:33 methylprednisolone Allergy Unknown Verified 05/21/23 08:33 [From Depo-Medrol] penicillin G Allergy Hives Verified 05/21/23 08:33 nitrofurantoin AdvReac Unknown unknown Verified 05/21/23 08:33 [From Macrobid] tolterodine [From Detrol] AdvReac unknown Verified 05/21/23 08:33 PFSH Acute 2 PFSH: Medical History Obesity (BMI 30-39.9) DDD (degenerative disc disease), lumbar Lumbar pain with radiation down left leg Restless leg Hypothyroid Atrial fibrillation With slow ventricular response. No pertinent past medical history Denies asthma, seizures, bleeding or clotting disorders, DVT/PE. PCP: ROSALVA Mcmillan Lives in assisted living facility Essential (primary) hypertension Anxiety and depression Dependent on walker for ambulation Surgical History H/O vaginal surgery 05/22/2020- Colpocleisis, single incision mid urethral sling and cystoscopy performed by Dr. Varner at [facility] History of colonoscopy 2007 Negative Family History Mother Diabetes Stroke Father Heart disease Sister Breast cancer diagnosed at age 45 Denies family history of Colon cancer Ovarian cancer Hyperlipidemia Hypertension Uterine cancer Thyroid disease Social History Smoking and tobacco/nicotine status: never used tobacco/nicotine Second hand smoke exposure: No Alcohol intake: never Substance/Drug Use: never Housing: Assisted Living Facility Marital status: / Vitals/I&O/Wt Last Vital Signs Temp 98.1 F 05/28/23 13:16 Pulse 34 L 05/28/23 14:31 Resp 14 05/28/23 14:31 BP 145/58 05/28/23 14:31 Pulse Ox 97 05/28/23 14:31 O2 Del Method Room Air 05/28/23 13:16 05/28/23 05/28/23 05/28/23 06:59 14:59 22:59 Intake Total 1050 / 1050 Balance 1050 / 1050 Weight last 48 hrs Weight 203 lb Physical Exam 2 Narrative: GENERAL: Patient is alert, awake and oriented x3. [] NECK: No jugular vein distension. [] HEENT: No cyanosis. No icterus. No pallor. [] HEART: Irregularly irregular, S1 and S2. LUNGS: Clear to auscultate bilaterally. [] CENTRAL NERVOUS SYSTEM: Grossly nonfocal. [] EXTREMITIES: Lower extremities with 1+ edema bilaterally. Data 05/28/23 14:07 05/28/23 14:07 A&P Assessment and plan (1) Mobitz (type) II atrioventricular block: (2) Atrial fibrillation with slow ventricular response: (3) Essential (primary) hypertension: (4) Recurrent UTI: Plan Patient has presented with weakness and was significantly bradycardic. Still having on and off bradycardia into the low 30s. She has sick sinus syndrome and also noted to have Mobitz type II AV block intermittently. She needs a pacemaker. However hemodynamically she is stable. We will wait on temporary pacemaker at this time. After the weekend we will plan on proceeding with permanent pacemaker. She is agreeable. I will discuss with family when they are available. Continue current medications. She has UTI. Follow cultures and treatment per primary team Continue tele monitoring. She is not on any rate limiting medications. Thank you for involving us with care of this patient. We will continue to follow. please call with questions. Consult Attestations 2 Medical Necessity Statement: Care expected to cross 2 midnights. Coding Level of Care Code Acute Code for [facility] Diagnoses Mobitz (type) II atrioventricular block I44.1 Atrial fibrillation with slow ventricular response I48.91 Essential (primary) hypertension I10 Recurrent UTI N39.0
--- NOTE | 2023-05-28 17:18 | P.HP_ITS ---
Providers/Chief Complaint 2 Admitting Physician: Jalen Roberson DO Primary Care Provider: ERIKA Jordan Chief Complaint: ams with weakness History of Present Illness Rosalva Hyatt is a 83 year old female resides at assisted living. Patient is wheelchair-bound. She sleeps in her recliner. Daughter visits her approximately twice a week. She has been showing signs of forgetfulness and memory loss and the family also reports depression and loneliness. The patient reports that she went to the bathroom and had trouble transferring back to the wheelchair. She felt extremely tired and that she just wanted to sleep. She felt that she just slumped over. She did not fall. She denies chest pain or shortness of breath. She does have some lower abdominal pain and admits to difficulty urinating. Review of Systems 2 Const: Denies: fever(s) or chills Eyes: Denies: change in vision ENMT: Denies: throat pain or nasal congestion Card: Denies: chest pain or palpitations Resp: Denies: dyspnea or productive cough GI: Denies: abdominal pain, nausea, vomiting or change in stool character : Reports: dysuria Musc: Denies: back pain or extremity pain Skin/Breast: Denies: rash or lesions Neuro: Denies: headache(s) or dizziness Psych: Denies: anxiety or depression Levon/Lymph: Denies: easy bruising or easy bleeding Medications/Allergies Home Medications Medication Instructions Recorded Confirmed Last Taken Type omeprazole 20 mg capsule,delayed 20 mg PO DAILY@08 03/10/19 05/28/23 05/28/23 History release acetaminophen 500 mg tablet 500 - 1,000 mg PO .EVERY 4-6 HOURS 03/29/19 05/28/23 05/18/20 09:16 History (Tylenol Extra Strength) PRN Pain hydrocortisone 1 % topical cream 1 applic topical BID PRN unknown 03/27/20 05/28/23 05/22/20 10:01 History benzocaine 5 %-resorcinol 2 % 1 applic topical BID@,05/20/20 05/28/23 Unknown History topical cream (Vagisil) apixaban 5 mg tablet (Eliquis) 5 mg PO BID@,06/04/20 05/28/23 05/28/23 History Lactobacillus acidophilus 1 cap PO BID@,22/05/28/23 05/28/23 History (Acidophilus capsule) heavy duty wheelchair (K0006) #1 ea 07/06/21 05/28/23 Unknown Rx fluticasone propionate 50 1 spray intranasal Q12H #16 grams 07/01/22 05/28/23 05/28/23 Rx mcg/actuation nasal spray,suspension (Flonase Allergy Relief) nystatin 100,000 unit/gram topical 1 applic topical BID PRN rash #30 09/03/22 05/28/23 Unknown Rx powder (Nyamyc) grams T4527 Large overnight pull up #180 ea 12/09/22 05/28/23 Unknown Rx multivitamin with minerals 1 tab PO DAILY@08 #30 tabs 01/06/23 05/28/23 05/28/23 Rx (Hair,Skin and Nails tablet) methenamine hippurate 1 gram tablet 1 g PO Q12H #60 tabs 02/05/23 05/28/23 05/28/23 Rx terconazole 0.8 % vaginal cream 1 appful vaginal BEDTIME #20 grams 05/21/23 05/28/23 Unknown Rx L.acidophil-L.casei-B.bifid-B.longum-FOS 1 cap PO BID@,05/28/23 05/28/23 05/25/23 History 2 billion cell-50 mg capsule out since (Probiotic Blend) 05/25/23 aripiprazole 10 mg tablet (Abilify) 10 mg PO DAILY@05/28/23 05/28/23 05/28/23 History ascorbic acid (vitamin C) 1,000 mg 1,000 mg PO Q12H 05/28/23 05/28/23 05/28/23 History capsule cefdinir 300 mg capsule 300 mg PO Q12H 05/28/23 05/28/23 05/28/23 History duloxetine 30 mg capsule,delayed 30 mg PO BID@,20 anxiety 05/28/23 05/28/23 05/28/23 History release furosemide 40 mg tablet 40 mg PO BID@08,14 05/28/23 05/28/23 05/28/23 History levothyroxine 125 mcg tablet 125 mcg PO DAILY@06 05/28/23 05/28/23 05/28/23 History lisinopril 5 mg tablet 5 - 10 mg PO DAILY 05/28/23 05/28/23 05/28/23 History magnesium hydroxide 400 mg/5 mL 30 - 60 ml PO DAILY PRN 05/28/23 05/28/23 Unknown History oral suspension (Dulcolax Constipation (magnesium hydroxide)) magnesium hydroxide 400 mg/5 mL 15 ml PO DAILY@08 05/28/23 05/28/23 05/28/23 History oral suspension (Milk of Magnesia) mupirocin 2 % topical ointment 1 applic topical BEDTIME@05/28/23 05/28/23 Unknown History nystatin 100,000 unit/gram topical 1 applic topical TID@08,,05/28/23 05/28/23 05/28/23 History cream omega-3 fatty acids 1,000 mg 1,000 mg PO BID@08,05/28/23 05/28/23 05/28/23 History capsule potassium chloride 20 mEq 20 meq PO BID@08,05/28/23 05/28/23 05/28/23 History tablet,extended release sennosides 8.6 mg-docusate sodium 1 tab-cap PO DAILY@08 05/28/23 05/28/23 05/28/23 History 50 mg tablet (Senna-S) silver sulfadiazine 1 % topical 1 applic topical BID@08,17 05/28/23 05/28/23 Unknown History cream zonisamide 100 mg capsule 100 mg PO BID@08,20 05/28/23 05/28/23 05/28/23 History Allergies Allergy/AdvReac Type Severity Reaction Status Date / Time amoxicillin [From Augmentin] Allergy Severe rash Verified 05/21/23 08:33 clavulanic acid Allergy Severe rash Verified 05/21/23 08:33 [From Augmentin] celecoxib [From Celebrex] Allergy DIARRHEA Verified 05/21/23 08:33 ciprofloxacin [From Cipro] Allergy RASH,ITCHIN Verified 05/21/23 08:33 G lidocaine Allergy Itching Verified 05/21/23 08:33 meloxicam [From Mobic] Allergy NA Verified 05/21/23 08:33 methylprednisolone Allergy Unknown Verified 05/21/23 08:33 [From Depo-Medrol] penicillin G Allergy Hives Verified 05/21/23 08:33 nitrofurantoin AdvReac Unknown unknown Verified 05/21/23 08:33 [From Macrobid] tolterodine [From Detrol] AdvReac unknown Verified 05/21/23 08:33 PFSH Acute 2 PFSH: Medical History Obesity (BMI 30-39.9) DDD (degenerative disc disease), lumbar Lumbar pain with radiation down left leg Restless leg Hypothyroid Atrial fibrillation With slow ventricular response. No pertinent past medical history Denies asthma, seizures, bleeding or clotting disorders, DVT/PE. PCP: ROSALVA Mcmillan Lives in assisted living facility Essential (primary) hypertension Anxiety and depression Dependent on walker for ambulation Surgical History H/O vaginal surgery 05/22/2020- Colpocleisis, single incision mid urethral sling and cystoscopy performed by Dr. Varner at [facility] History of colonoscopy 2007 Negative Family History Mother Diabetes Stroke Father Heart disease Sister Breast cancer diagnosed at age 45 Denies family history of Colon cancer Ovarian cancer Hyperlipidemia Hypertension Uterine cancer Thyroid disease Social History Smoking and tobacco/nicotine status: never used tobacco/nicotine Second hand smoke exposure: No Alcohol intake: never Substance/Drug Use: never Housing: Assisted Living Facility Marital status: / Vitals/I&O/Wt Last Vital Signs Temp 98.1 F 05/28/23 13:16 Pulse 34 L 05/28/23 14:31 Resp 14 05/28/23 14:31 BP 145/58 05/28/23 14:31 Pulse Ox 97 05/28/23 14:31 O2 Del Method Room Air 05/28/23 13:16 05/28/23 05/28/23 05/28/23 06:59 14:59 22:59 Intake Total 1050 / 1050 Balance 1050 / 1050 Weight last 48 hrs Weight 92.079 kg Physical Exam 2 Narrative: Elderly female appears well-nourished and well-hydrated. No acute distress. HEENT: Head NC/AT, PERRLA/EOMI. nasal and pharyngeal mucosa is moist and pink without lesions or exudates neck is supple no JVD carotid bruits or lymphadenopathy Chest rises symmetrically with inspiration there is no tenderness to palpation Heart is regular distant soft heart sounds soft systolic murmur heard best in the left upper sternal border 2 out of 6. Lungs: Clear to auscultation without wheezes rales or rhonchi Abdomen: Soft mild tenderness in the suprapubic region nondistended positive bowel sounds Extremities bilateral knee braces present but provide support. 1+ pitting edema [facility] to the knees. Skin: Thin pale no lesions or rashes noted Psych: Mood and affect are appropriate Neuro: Patient has delayed executive function however she is alert and oriented to person place time and situation there is no focal abnormalities. Data 05/28/23 14:07 05/28/23 14:07 A&P Assessment and plan (1) Bradycardia: Patient has had a longstanding asymptomatic bradycardia running around 50. Today in the emergency department she is found to have initially of first-degree AV block, then a Mobitz type II second-degree AV block, the A-fib with slow ventricular response. ER physician spoke with Dr. Barakat who plans for a pacemaker. Patient and family are agreeable. She will be admitted to the ICU for close observation with the pacing pads in place. Please note patient is not on any drugs that would induce bradycardia. TSH was normal 1 year ago will recheck. (2) Mobitz (type) II atrioventricular block: (3) Atrial fibrillation with slow ventricular response: (4) Alteration in mobility associated with pain: (5) Recurrent UTI: UA is positive for UTI. Patient has multiple allergies to medications and has had multiple UTIs and yeast infections in the past. Patient was started on meropenem in the ER and I will continue this. Await culture and sensitivity reports. (6) Dependent on walker for ambulation: (7) Anxiety and depression: (8) Essential (primary) hypertension: Per home medication list patient takes lisinopril and Lasix that would affect blood pressure (9) Lives in assisted living facility: Attestations 2 Medical Necessity Statement*: Patient's care will require greater than 2 midnight stay for the assessment and treatment of symptomatic bradycardia. She is at high risk for complete heart failure requiring emergency treatment modalities. Coding Level of Care Code Acute Code for [facility] Diagnoses Bradycardia R00.1 Mobitz (type) II atrioventricular block I44.1 Atrial fibrillation with slow ventricular response I48.91 Alteration in mobility associated with pain Z78.9; R52 Recurrent UTI N39.0 Dependent on walker for ambulation Z99.89 Anxiety and depression F41.9; F32.9 Essential (primary) hypertension I10 Lives in assisted living facility Z59.3
--- NOTE | 2023-05-28 17:34 | PC.NURSE ---
Arrived from ED, AO x4
[2023-05-28 18:16] LABS: Thyroid Stimulating Hormone 0.12 uIU/mL (0.27-4.20)
[2023-05-28] MEDS: heparin 5,000 unit/mL INJ 1 mL 5000 UNIT SUBCUT (18:53)
[2023-05-28] MEDS: fluticasone nasal spray 16gm Btl 1 SPRAY INTRANASAL (18:53)
[2023-05-28] MEDS: sodium chloride 0.9% 1,000 ML 100 ML IV (18:54)
[2023-05-28] MEDS: acetaminophen 325 mg Tablet 650 MG PO (19:52)
[2023-05-28] MEDS: duloxetine 30 mg Capsule PO (19:52)
[2023-05-28] MEDS: zonisamide 100 MG Capsule PO (19:52)
[2023-05-28] MEDS: nystatin cream 30 gm 1 APPLIC TOPICAL (20:20)
[2023-05-28 20:33] LABS: Troponin 5 6HR 31.73 ng/L (0-10); Troponin 5 6HR Delta 2.73 ng/L (0-12)
[2023-05-28] MEDS: lanolin oint 7 gm 1 APPLIC TOPICAL (21:30)
--- NOTE | 2023-05-28 22:08 | PC.NURSE ---
Contacted Dr. Price because pt heart rate continues to fall below 35 (several times, heart rate lowered to 27-30 bpm). Dr asked for pt BP. BP 137/56. stated, If she becomes hypotensive map<65 start dopamine.
[2023-05-29] VITALS (67 sets, daily range): BP systolic 105–174; BP diastolic 39–72; PULSE 28–68; RESP 8–23; TEMP 36.6–37.1; O2SAT 82–97
[2023-05-29] MEDS: meropenem 1,000 MG in sodium chloride 0.9% (plus) 50 ML 100 MG IV ×3 (00:53→16:15)
[2023-05-29] MEDS: sodium chloride 0.9% 1,000 ML 100 ML IV (04:14)
[2023-05-29] MEDS: levothyroxine 125 mcg Tablet PO (06:07)
[2023-05-29] MEDS: heparin 5,000 unit/mL INJ 1 mL 5000 UNIT SUBCUT ×2 (06:07→17:51)
[2023-05-29] MEDS: fluticasone nasal spray 16gm Btl 1 SPRAY INTRANASAL ×2 (06:54→17:51)
--- NOTE | 2023-05-29 07:54 | P.PN_ITS ---
Subjective 2 Subjective: Patient doing well. heart rates overnight went down into 30s but have improved once awake. Blood pressure is stable. Vitals/I&O/Wt Last Vital Signs Temp 98.7 F 05/29/23 05:15 Pulse 33 L 05/29/23 06:00 Resp 11 L 05/29/23 05:45 BP 174/55 05/29/23 06:00 Pulse Ox 87 L 05/29/23 05:15 O2 Del Method Room Air 05/28/23 17:34 05/28/23 05/29/23 05/29/23 22:59 06:59 14:59 Intake Total 1050 / 1050 1183.333 / 2233.333 Balance 1050 / 1050 1183.333 / 2233.333 Weight last 48 hrs Weight 205 lb Weight 203 lb Physical Exam 2 Narrative: GENERAL: Patient is alert, awake and oriented x3. [] NECK: No jugular vein distension. [] HEENT: No cyanosis. No icterus. No pallor. [] HEART: Irregularly irregular, S1 and S2. LUNGS: Clear to auscultate bilaterally. [] CENTRAL NERVOUS SYSTEM: Grossly nonfocal. [] EXTREMITIES: Lower extremities with 1+ edema bilaterally. Data 05/28/23 14:07 05/28/23 14:07 A&P Assessment and plan (1) Mobitz (type) II atrioventricular block: (2) Atrial fibrillation with slow ventricular response: (3) Essential (primary) hypertension: (4) Recurrent UTI: Plan Patient is hemodynamically stable. Heart rate is dropped down to 30s when asleep however when awake they are in the 40s to 50s. She will need permanent pacemaker placement. Will plan for early next week. Thank you for involving us with care of this patient. We will continue to follow. please call with questions. Attestations 2 Medical Necessity Statement*: Care expected to cross 2 midnights. Coding Level of Care Code Acute Code for [facility] Diagnoses Mobitz (type) II atrioventricular block I44.1 Atrial fibrillation with slow ventricular response I48.91 Essential (primary) hypertension I10 Recurrent UTI N39.0
[2023-05-29] MEDS: lisinopril 10 mg Tablet PO (08:35)
[2023-05-29] MEDS: docusate sodium 100 mg Capsule PO ×2 (08:35→17:51)
[2023-05-29] MEDS: pantoprazole DR 40 mg Tablet PO (08:35)
[2023-05-29] MEDS: multivitamin therapeutic Tablet 1 TAB PO (08:35)
[2023-05-29] MEDS: ARIPiprazole 10 mg Tablet PO (08:35)
[2023-05-29] MEDS: hydrocortisone 1% cream 28 gm 1 APPLIC TOPICAL (08:38)
[2023-05-29] MEDS: FUROsemide 40 mg Tablet PO ×2 (08:39→14:29)
[2023-05-29] MEDS: zonisamide 100 MG Capsule PO ×2 (08:41→19:37)
[2023-05-29] MEDS: duloxetine 30 mg Capsule PO ×2 (08:41→19:37)
[2023-05-29] MEDS: silver sulfadiazine cream 1% 50 gm 1 APPLIC TOPICAL ×2 (08:43→17:52)
[2023-05-29] MEDS: omega-3 fatty acids 1,000 mg Capsule 1000 MG PO ×2 (09:47→19:37)
[2023-05-29] MEDS: nystatin powder 15 gm Btl 1 APPLIC TOPICAL (09:47)
--- NOTE | 2023-05-29 12:53 | PM.PN ---
Subjective Subjective: Patient complains of neck pain however she was just sleeping with her neck forward. Otherwise denies chest pain lightheadedness or dizziness Vitals/I&O/Wt Last Vital Signs Temp 98.7 F 05/29/23 05:15 Pulse 47 L 05/29/23 12:00 Resp 16 05/29/23 12:00 BP 129/49 05/29/23 12:00 Pulse Ox 97 05/29/23 12:00 O2 Del Method Room Air 05/28/23 17:34 05/28/23 05/29/23 05/29/23 22:59 06:59 14:59 Intake Total 1050 / 1050 1183.333 / 2233.333 450 / 450 Balance 1050 / 1050 1183.333 / 2233.333 450 / 450 Weight last 48 hrs Weight 92.986 kg Weight 92.079 kg Physical Exam Narrative: Elderly female appears well-nourished and well-hydrated. No acute distress. Heart is regular distant soft heart sounds soft systolic murmur heard best in the left upper sternal border 2 out of 6. Lungs: Clear to auscultation without wheezes rales or rhonchi Abdomen: Soft mild tenderness in the suprapubic region nondistended positive bowel sounds Extremities bilateral knee braces present but provide support. 1+ pitting edema [facility] to the knees. Skin: Thin pale no lesions or rashes noted Data 05/28/23 14:07 05/28/23 14:07 Micro: Microbiology 05/28/23 13:40 Urine Culture - Preliminary Urine,Clean Catch No growth thus far and urine culture A&P Assessment and plan (1) Bradycardia: Patient has had a longstanding asymptomatic bradycardia running around 50. Now with symptomatic bradycardia Mobitz type II. Plans are for pacemaker by Dr. Barakat on Wednesday. Unfortunately the patient must be maintained in the ICU due to hospital capability. Please note patient is not on any drugs that would induce bradycardia. TSH is actually suppressed (2) Mobitz (type) II atrioventricular block: (3) Atrial fibrillation with slow ventricular response: (4) Alteration in mobility associated with pain: (5) Recurrent UTI: While UA was apparently positive for UTI. Patient has no growth in urine. Will continue meropenem until final cultures available. (6) Dependent on walker for ambulation: (7) Anxiety and depression: (8) Essential (primary) hypertension: Per home medication list patient takes lisinopril and Lasix that would affect blood pressure (9) Lives in assisted living facility: (10) Hypothyroid: Patient takes levothyroxine 125 mcg a day. TSH is actually suppressed. Will need to decrease levothyroxine by 1 dosage level. Qualifiers: Hypothyroidism type: other Qualified Code(s): E03.8 - Other specified hypothyroidism Attestations Medical Necessity Statement*: Patient's care will require greater than 2 midnight stay for the assessment and treatment of symptomatic bradycardia. She is at high risk for complete heart failure requiring emergency treatment modalities. Coding Level of Care Code Acute Code for [facility] Diagnoses Bradycardia R00.1 Mobitz (type) II atrioventricular block I44.1 Atrial fibrillation with slow ventricular response I48.91 Alteration in mobility associated with pain Z78.9; R52 Recurrent UTI N39.0 Dependent on walker for ambulation Z99.89 Anxiety and depression F41.9; F32.9 Essential (primary) hypertension I10 Lives in assisted living facility Z59.3 Other specified hypothyroidism E03.8 Hypothyroidism type: other
[2023-05-29] MEDS: nystatin cream 30 gm 1 APPLIC TOPICAL ×2 (14:28→19:49)
--- NOTE | 2023-05-29 17:03 | PC.NURSE ---
has had continous urine dribbling , and bottom red and irritated clarke inserted prior with residual of 250 cc
[2023-05-29] MEDS: mupirocin oint 22 gm 1 APPLIC TOPICAL (19:50)
[2023-05-29] MEDS: acetaminophen 325 mg Tablet 650 MG PO (20:39)
[2023-05-30] VITALS (31 sets, daily range): BP systolic 106–147; BP diastolic 36–87; PULSE 28–69; RESP 11–19; TEMP 36.1–37.2; O2SAT 83–97; BMI 34.4
[2023-05-30] MEDS: meropenem 1,000 MG in sodium chloride 0.9% (plus) 50 ML 100 MG IV (04:15)
[2023-05-30] MEDS: heparin 5,000 unit/mL INJ 1 mL 5000 UNIT SUBCUT ×2 (06:41→17:26)
[2023-05-30] MEDS: levothyroxine 112 mcg Tablet PO (06:41)
[2023-05-30] MEDS: fluticasone nasal spray 16gm Btl 1 SPRAY INTRANASAL ×2 (06:41→17:26)
[2023-05-30] MEDS: acetaminophen 325 mg Tablet 650 MG PO ×2 (07:16→22:47)
[2023-05-30] MEDS: duloxetine 30 mg Capsule PO ×2 (09:10→20:21)
[2023-05-30] MEDS: FUROsemide 40 mg Tablet PO ×2 (09:10→14:06)
--- NOTE | 2023-05-30 09:10 | P.PN_ITS ---
Subjective 2 Subjective: Patient's heart rate fluctuates but when awake and talking mostly in 40s-50s. No chest pain. Blood pressure is stable. Vitals/I&O/Wt Last Vital Signs Temp 98.0 F 05/30/23 04:00 Pulse 58 L 05/30/23 08:00 Resp 11 L 05/30/23 08:00 BP 145/53 05/30/23 07:00 Pulse Ox 83 L 05/30/23 08:00 O2 Del Method Room Air 05/30/23 06:00 05/29/23 05/30/23 05/30/23 22:59 06:59 14:59 Intake Total 1243.4 / 1693.4 50 / 1743.4 150 / 150 Output Total 950 / 950 Balance 1243.4 / 1693.4 -900 / 793.4 150 / 150 Weight last 48 hrs Weight 207 lb Weight 205 lb Weight 203 lb Physical Exam 2 Narrative: GENERAL: Patient is alert, awake and oriented x3. [] NECK: No jugular vein distension. [] HEENT: No cyanosis. No icterus. No pallor. [] HEART: Irregularly irregular, S1 and S2. LUNGS: Clear to auscultate bilaterally. [] CENTRAL NERVOUS SYSTEM: Grossly nonfocal. [] EXTREMITIES: Lower extremities with 1+ edema bilaterally. Urinary Catheter Management: Guillen: Cath Placed During This Visit: yes Reason for Continuing Indwelling Catheter: Accurate Measurement of Urinary Output in Critically Ill Patients Urinary Catheter Date of Insertion: 05/29/23 Urinary Catheter Time of Insertion: 02:15 Data 05/31/23 03:07 05/31/23 03:07 Micro: Microbiology 05/28/23 13:40 Urine Culture - Preliminary Urine,Clean Catch A&P Assessment and plan (1) Mobitz (type) II atrioventricular block: (2) Atrial fibrillation with slow ventricular response: (3) Essential (primary) hypertension: (4) Recurrent UTI: Plan Patient's heart rate is still low however is staying hemodynamically stable. Renal function is normal. Plan for permanent pacemaker placement tomorrow or on Wednesday. UTI treatment per primary. Thank you for involving us with care of this patient. We will continue to follow. please call with questions. Attestations 2 Medical Necessity Statement*: Care expected to cross 2 midnights. Coding Level of Care Code Acute Code for [facility] Diagnoses Mobitz (type) II atrioventricular block I44.1 Atrial fibrillation with slow ventricular response I48.91 Essential (primary) hypertension I10 Recurrent UTI N39.0
[2023-05-30] MEDS: lisinopril 10 mg Tablet PO (09:11)
[2023-05-30] MEDS: pantoprazole DR 40 mg Tablet PO (09:11)
[2023-05-30] MEDS: docusate sodium 100 mg Capsule PO ×2 (09:11→17:25)
[2023-05-30] MEDS: multivitamin therapeutic Tablet 1 TAB PO (09:11)
[2023-05-30] MEDS: omega-3 fatty acids 1,000 mg Capsule 1000 MG PO (09:11)
[2023-05-30] MEDS: zonisamide 100 MG Capsule PO ×2 (09:11→20:21)
[2023-05-30] MEDS: ARIPiprazole 10 mg Tablet PO (09:11)
[2023-05-30] MEDS: silver sulfadiazine cream 1% 50 gm 1 APPLIC TOPICAL ×2 (09:12→17:25)
[2023-05-30 11:09] LABS: Anion Gap 9.9 (5-19); Blood Urea Nitrogen 17 mg/dL (8-23); Calcium 10.5 mg/dL (8.5-10.5); Carbon Dioxide 28 mmol/L (22-29); Chloride 105 mmol/L (98-107); Creatinine Clr Calc Pharmacy 53.6521; Glucose 137 mg/dL (65-115); Osmolality Calculated 292 mOsm/kg (285-295); Potassium 3.9 mmol/L (3.5-5.1); Sodium 139 mmol/L (136-145)
--- NOTE | 2023-05-30 11:28 | PC.NURSE ---
awake assist with am breakfast pt alert feed self but requested again that her ingrown toenails be looked at .. expain with infection and heart rate it would be best to wait at this time
--- NOTE | 2023-05-30 12:05 | P.PN_ITS ---
Subjective 2 Subjective: Patient admitted for vasovagal syncope due to bradycardia. Found to have A-fib with slow response, Mobitz type II AV block. Patient required admission to ICU with pacer pads in place. Plan for pacemaker placement on May 31. Patient complains of ingrown toenail. Consideration for podiatry consult during the week. Vitals/I&O/Wt Last Vital Signs Temp 98.0 F 05/30/23 04:00 Pulse 32 L 05/30/23 10:00 Resp 16 05/30/23 10:00 BP 120/53 05/30/23 10:00 Pulse Ox 95 05/30/23 10:00 O2 Del Method Room Air 05/30/23 06:00 05/29/23 05/30/23 05/30/23 22:59 06:59 14:59 Intake Total 1243.4 / 1693.4 50 / 1743.4 150 / 150 Output Total 950 / 950 Balance 1243.4 / 1693.4 -900 / 793.4 150 / 150 Weight last 48 hrs Weight 93.894 kg Weight 92.986 kg Weight 92.079 kg Physical Exam 2 Narrative: Elderly female appears well-nourished and well-hydrated. No acute distress. Heart is regular distant soft heart sounds soft systolic murmur heard best in the left upper sternal border 2 out of 6. Lungs: Clear to auscultation without wheezes rales or rhonchi Abdomen: Soft mild tenderness in the suprapubic region nondistended positive bowel sounds Extremities bilateral knee braces present but provide support. 1+ pitting edema skilled nursing to the knees. Skin: Thin pale no lesions or rashes noted Urinary Catheter Management: Guillen: Cath Placed During This Visit: yes Reason for Continuing Indwelling Catheter: Accurate Measurement of Urinary Output in Critically Ill Patients Urinary Catheter Date of Insertion: 05/29/23 Urinary Catheter Time of Insertion: 02:15 Data 05/28/23 14:07 05/30/23 10:45 Micro: Microbiology 05/28/23 13:40 Urine Culture - Preliminary Urine,Clean Catch Yeast species A&P Assessment and plan (1) Bradycardia: Patient has had a longstanding asymptomatic bradycardia running around 50. Now with symptomatic bradycardia Mobitz type II. Plans are for pacemaker by Dr. Barakat on Wednesday. Unfortunately the patient must be maintained in the ICU due to hospital capability. Please note patient is not on any drugs that would induce bradycardia. TSH is actually suppressed (2) Mobitz (type) II atrioventricular block: (3) Atrial fibrillation with slow ventricular response: (4) Alteration in mobility associated with pain: (5) Recurrent UTI: Yeast Treat with Diflucan (6) Dependent on walker for ambulation: (7) Anxiety and depression: (8) Essential (primary) hypertension: Per home medication list patient takes lisinopril and Lasix that would affect blood pressure (9) Lives in assisted living facility: (10) Hypothyroid: Decrease levothyroxine to 112 mcg a day Qualifiers: Hypothyroidism type: other Qualified Code(s): E03.8 - Other specified hypothyroidism Plan Pacemaker on Wednesday, May 31. Maintain in ICU. Add Diflucan for candidiasis in urine Attestations 2 Medical Necessity Statement*: Patient's care will require greater than 2 midnight stay for the assessment and treatment of symptomatic bradycardia. She is at high risk for complete heart failure requiring emergency treatment modalities. Coding Level of Care Code Acute Code for [facility] Diagnoses Bradycardia R00.1 Mobitz (type) II atrioventricular block I44.1 Atrial fibrillation with slow ventricular response I48.91 Alteration in mobility associated with pain Z78.9; R52 Recurrent UTI N39.0 Dependent on walker for ambulation Z99.89 Anxiety and depression F41.9; F32.9 Essential (primary) hypertension I10 Lives in assisted living facility Z59.3 Other specified hypothyroidism E03.8 Hypothyroidism type: other
[2023-05-30] MEDS: fluconazole 100 mg Tablet 150 MG PO (12:18)
[2023-05-30] MEDS: nystatin cream 30 gm 1 APPLIC TOPICAL ×2 (14:11→20:24)
[2023-05-30] MEDS: mupirocin oint 22 gm 1 APPLIC TOPICAL (20:24)
[2023-05-31] VITALS (26 sets, daily range): BP systolic 105–147; BP diastolic 41–72; PULSE 27–105; RESP 13–21; TEMP 36.2–37.4; O2SAT 73–98
[2023-05-31 03:35] LABS: Basophils # 0.1 10^3/uL (0.0-0.1); Basophils % 0.7 %; Eosinophils # 0.2 10^3/uL (0.0-0.8); Eosinophils % 2.1 %; Hematocrit 38.6 % (36-47); Lymphocytes % 23.7 %; Mean Corpuscular HGB Conc 32.1 g/dL (30-55); Mean Corpuscular Hemoglobin 29.8 pg (27-33); Mean Corpuscular Volume 92.8 fl (85-98); Mean Platelet Volume 10.3 fL (7.4-10.4); Monocytes % 11.5 %; Neutrophils # 5.17 10^3/uL (1.8-7.7); Neutrophils % 61.6 %; Nucleated Red Blood Cells % 0 %; Platelet Count 223 10^3/cmm (157-399); Red Blood Count 4.16 10^6/uL (3.85-5.65); Red Cell Distribution Width 13.1 % (12.1-15.1)
[2023-05-31 04:02] LABS: Alanine Aminotransferase 13 U/L (0-33); Albumin Level 3.5 g/dL (3.5-5.2); Alkaline Phosphatase 90 U/L (35-105); Anion Gap 10.8 (5-19); Aspartate Amino Transferase 15 U/L (0-32); Blood Urea Nitrogen 17 mg/dL (8-23); C Reactive Protein 3.8 mg/L (0.0-4.9); Calcium 10.7 mg/dL (8.5-10.5); Carbon Dioxide 31 mmol/L (22-29); Chloride 104 mmol/L (98-107); Creatinine Clr Calc Pharmacy 53.6521; Globulin 2.4 g/dL (1.3-4.6); Glucose 98 mg/dL (65-115); Magnesium 1.8 mg/dL (1.7-2.3); Osmolality Calculated 296 mOsm/kg (285-295); Phosphorus 2.6 mg/dL (2.5-4.5); Potassium 3.8 mmol/L (3.5-5.1); Procalcitonin 0.06 ng/mL (0-0.5); Sodium 142 mmol/L (136-145); Total Bilirubin 0.3 mg/dL (0.15-1.2); Total Protein 5.9 g/dL (6.6-8.7)
[2023-05-31] MEDS: levothyroxine 112 mcg Tablet PO (05:54)
[2023-05-31] MEDS: fluticasone nasal spray 16gm Btl 1 SPRAY INTRANASAL ×2 (05:55→17:50)
[2023-05-31] MEDS: heparin 5,000 unit/mL INJ 1 mL 5000 UNIT SUBCUT ×2 (05:57→17:49)
--- NOTE | 2023-05-31 07:10 | P.PN_ITS ---
Subjective 2 Subjective: Patient is stable. No chest pain. Blood pressure is stable. Heart rate fluctuates between 30 to 50 bpm. Vitals/I&O/Wt Last Vital Signs Temp 97.2 F L 05/31/23 04:00 Pulse 36 L 05/31/23 06:00 Resp 14 05/31/23 06:00 BP 113/51 05/31/23 06:00 Pulse Ox 96 05/31/23 06:00 O2 Del Method Nasal Cannula 05/31/23 04:00 O2 Flow Rate 2 05/31/23 04:00 05/30/23 05/31/23 05/31/23 22:59 06:59 14:59 Intake Total 120 / 520 Output Total 1999 1250 / 3250 Balance -1880 / -1480 -1250 / -2730 Weight last 48 hrs Weight 212 lb 11.2 oz Weight 207 lb Physical Exam 2 Narrative: GENERAL: Patient is alert, awake and oriented x3. [] NECK: No jugular vein distension. [] HEENT: No cyanosis. No icterus. No pallor. [] HEART: Irregularly irregular, S1 and S2. LUNGS: Clear to auscultate bilaterally. [] CENTRAL NERVOUS SYSTEM: Grossly nonfocal. [] EXTREMITIES: Lower extremities with 1+ edema bilaterally. Urinary Catheter Management: Guillen: Cath Placed During This Visit: yes Reason for Continuing Indwelling Catheter: Accurate Measurement of Urinary Output in Critically Ill Patients Urinary Catheter Date of Insertion: 05/29/23 Urinary Catheter Time of Insertion: 02:15 Data 05/31/23 03:07 05/31/23 03:07 Micro: Microbiology 05/28/23 13:40 Urine Culture - Preliminary Urine,Clean Catch Yeast species A&P Assessment and plan (1) Mobitz (type) II atrioventricular block: (2) Atrial fibrillation with slow ventricular response: (3) Essential (primary) hypertension: (4) Recurrent UTI: Plan Patient is hemodynamically stable. Plan for permanent pacemaker likely tomorrow. We will consult Dr. Dickson for placing permanent pacemaker. As blood pressure has not decreased significantly, we will hold off on temporary pacemaker placement Thank you for involving us with care of this patient. We will continue to follow. please call with questions. Attestations 2 Medical Necessity Statement*: Care expected to cross 2 midnights Coding Level of Care Code Acute Code for Chg Fwd Diagnoses Mobitz (type) II atrioventricular block I44.1 Atrial fibrillation with slow ventricular response I48.91 Essential (primary) hypertension I10 Recurrent UTI N39.0
[2023-05-31] MEDS: ARIPiprazole 10 mg Tablet PO (08:02)
[2023-05-31] MEDS: lisinopril 10 mg Tablet PO (08:03)
[2023-05-31] MEDS: FUROsemide 40 mg Tablet PO ×2 (08:03→12:50)
[2023-05-31] MEDS: multivitamin therapeutic Tablet 1 TAB PO (08:03)
[2023-05-31] MEDS: omega-3 fatty acids 1,000 mg Capsule 1000 MG PO ×2 (08:03→19:36)
[2023-05-31] MEDS: silver sulfadiazine cream 1% 50 gm 1 APPLIC TOPICAL ×2 (08:03→17:50)
[2023-05-31] MEDS: zonisamide 100 MG Capsule PO ×2 (08:03→19:35)
[2023-05-31] MEDS: docusate sodium 100 mg Capsule PO ×2 (08:03→17:12)
[2023-05-31] MEDS: duloxetine 30 mg Capsule PO ×2 (08:03→19:35)
[2023-05-31] MEDS: pantoprazole DR 40 mg Tablet PO (08:03)
--- NOTE | 2023-05-31 08:35 | PM.CONSULT ---
Providers/Reason For Consult Consulting Physician/Specialty*: Cardiology/VIVIAN Dickson MD Reason for Consult*: Patient with a symptomatic bradycardia to consider permanent pacemaker implantation Requesting Physician: Dr. Kunh/ Attending Physician: Medardo Price MD Primary Care Provider: ROSALVA Jordan-Jina History of Present Illness History of Present Illness Rosalva Hyatt is a 83 year old female, is [facility] with [facility] She has a longstanding history of atrial fibrillation. She has found episodes of tachy or evelin arrhythmias and second-degree type I AV block. According to the patient's daughter, she had episodes of near syncope prior to this event. There were times when she was found to be slumping over and unresponsive while sitting up in the wheelchair. She spontaneously gets back to herself in few seconds. She has no chest pain or shortness of breath. No fever, chills or cough. She was found to have features of UTI her functional status is very poor. She moves around in a wheelchair. 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 Review of Systems Narrative: CONSTITUTIONAL: No fever or chills. EYES: No blurring of vision or other visual disturbances lately. ENT: No hoarseness of voice, auditory disturbances or sore throat. CARDIOVASCULAR: As mentioned above. RESPIRATORY: No significant cough. GASTROINTESTINAL: No hematemesis or melena. GENITOURINARY: Patient has history of recurrent UTI INTEGUMENTARY: No skin rashes or history of skin cancer. NEURO: No transient ischemic attacks or amaurosis. PSYCHIATRIC: No history of psychosis or major depression. HEMATOLOGIC: No bleeding disorders or significant anemia. ENDOCRINE: History of hypothyroidism MUSCULOSKELETAL: No recent joint pain or swelling. ALLERGY/IMMUNOLOGY: As mentioned above. Medications/Allergies Home Medications Medication Instructions Recorded Confirmed Last Taken Type omeprazole 20 mg capsule,delayed 20 mg PO DAILY@08 03/10/19 05/28/23 05/28/23 History release acetaminophen 500 mg tablet 500 - 1,000 mg PO .EVERY 4-6 HOURS 03/29/19 05/28/23 05/18/20 09:16 History (Tylenol Extra Strength) PRN Pain hydrocortisone 1 % topical cream 1 applic topical BID PRN unknown 03/27/20 05/28/23 05/22/20 10:01 History benzocaine 5 %-resorcinol 2 % 1 applic topical BID@,05/20/20 05/28/23 Unknown History topical cream (Vagisil) apixaban 5 mg tablet (Eliquis) 5 mg PO BID@08,20 06/04/20 05/28/23 05/28/23 History Lactobacillus acidophilus 1 cap PO BID@,09/12/20 05/28/23 05/28/23 History (Acidophilus capsule) heavy duty wheelchair (K0006) #1 ea 07/06/21 05/28/23 Unknown Rx fluticasone propionate 50 1 spray intranasal Q12H #16 grams 07/01/22 05/28/23 05/28/23 Rx mcg/actuation nasal spray,suspension (Flonase Allergy Relief) nystatin 100,000 unit/gram topical 1 applic topical BID PRN rash #30 09/03/22 05/28/23 Unknown Rx powder (Nyamyc) grams [id number] Large overnight pull up #180 ea 12/09/22 05/28/23 Unknown Rx multivitamin with minerals 1 tab PO DAILY@08 #30 tabs 01/06/23 05/28/23 05/28/23 Rx (Hair,Skin and Nails tablet) methenamine hippurate 1 gram tablet 1 g PO Q12H #60 tabs 02/05/23 05/28/23 05/28/23 Rx terconazole 0.8 % vaginal cream 1 appful vaginal BEDTIME #20 grams 05/21/23 05/28/23 Unknown Rx L.acidophil-L.casei-B.bifid-B.longum-FOS 1 cap PO BID@08,05/28/23 05/28/23 05/25/23 History 2 billion cell-50 mg capsule out since (Probiotic Blend) 05/25/23 aripiprazole 10 mg tablet (Abilify) 10 mg PO DAILY@08 05/28/23 05/28/23 05/28/23 History ascorbic acid (vitamin C) 1,000 mg 1,000 mg PO Q12H 05/28/23 05/28/23 05/28/23 History capsule cefdinir 300 mg capsule 300 mg PO Q12H 05/28/23 05/28/23 05/28/23 History duloxetine 30 mg capsule,delayed 30 mg PO BID@,20 anxiety 05/28/23 05/28/23 05/28/23 History release furosemide 40 mg tablet 40 mg PO BID@08,14 05/28/23 05/28/23 05/28/23 History levothyroxine 125 mcg tablet 125 mcg PO DAILY@05/28/23 05/28/23 05/28/23 History lisinopril 5 mg tablet 5 - 10 mg PO DAILY 05/28/23 05/28/23 05/28/23 History magnesium hydroxide 400 mg/5 mL 30 - 60 ml PO DAILY PRN 05/28/23 05/28/23 Unknown History oral suspension (Dulcolax Constipation (magnesium hydroxide)) magnesium hydroxide 400 mg/5 mL 15 ml PO DAILY@05/28/23 05/28/23 05/28/23 History oral suspension (Milk of Magnesia) mupirocin 2 % topical ointment 1 applic topical BEDTIME@05/28/23 05/28/23 Unknown History nystatin 100,000 unit/gram topical 1 applic topical TID@08,,05/28/23 05/28/23 05/28/23 History cream omega-3 fatty acids 1,000 mg 1,000 mg PO BID@,05/28/23 05/28/23 05/28/23 History capsule potassium chloride 20 mEq 20 meq PO BID@,05/28/23 05/28/23 05/28/23 History tablet,extended release sennosides 8.6 mg-docusate sodium 1 tab-cap PO DAILY@05/28/23 05/28/23 05/28/23 History 50 mg tablet (Senna-S) silver sulfadiazine 1 % topical 1 applic topical BID@,05/28/23 05/28/23 Unknown History cream zonisamide 100 mg capsule 100 mg PO BID@,20 05/28/23 05/28/23 05/28/23 History Allergies Allergy/AdvReac Type Severity Reaction Status Date / Time amoxicillin [From Augmentin] Allergy Severe rash Verified 05/21/23 08:33 clavulanic acid Allergy Severe rash Verified 05/21/23 08:33 [From Augmentin] celecoxib [From Celebrex] Allergy DIARRHEA Verified 05/21/23 08:33 ciprofloxacin [From Cipro] Allergy RASH,ITCHIN Verified 05/21/23 08:33 G lidocaine Allergy Itching Verified 05/21/23 08:33 meloxicam [From Mobic] Allergy NA Verified 05/21/23 08:33 methylprednisolone Allergy Unknown Verified 05/21/23 08:33 [From Depo-Medrol] penicillin G Allergy Hives Verified 05/21/23 08:33 nitrofurantoin AdvReac Unknown unknown Verified 05/21/23 08:33 [From Macrobid] tolterodine [From Detrol] AdvReac unknown Verified 05/21/23 08:33 Current Medications Generic Name Dose Route Start Last Admin Trade Name Freq PRN Reason Stop Dose Admin Acetaminophen 650 mg 05/28/23 18:41 05/30/23 22:47 Acetaminophen 325 Mg Tablet PO 650 mg Q6H PRN Administration MILD PAIN Aripiprazole 10 mg 05/29/23 08:00 05/31/23 08:02 Aripiprazole 10 Mg Tablet PO 10 mg DAILY@08 JIE Administration Docusate Sodium 100 mg 05/28/23 18:41 05/31/23 08:03 Docusate Sodium 100 Mg Capsule PO 100 mg BID JIE Administration Duloxetine HCl 30 mg 05/28/23 20:00 05/31/23 08:03 Duloxetine 30 Mg Capsule PO 30 mg BID@08,20 JIE Administration Fluticasone Propionate 1 spray 05/28/23 18:41 05/31/23 05:55 Fluticasone Nasal [place] 16gm Btl INTRANASAL 1 spray Q12H JIE Administration Furosemide 40 mg 05/29/23 08:00 05/31/23 08:03 Furosemide 40 Mg Tablet PO 40 mg BID@08,14 JIE Administration Heparin Sodium (Porcine) 5,000 unit 05/28/23 18:41 05/31/23 05:57 Heparin 5,000 Unit/Ml Inj 1 Ml SUBCUT 5,000 unit Q12H JIE Administration Hydrocortisone 1 applic 05/28/23 18:41 05/29/23 08:38 Hydrocortisone 1% Cream 28 Gm TOPICAL 1 applic BID PRN Administration unknown Lanolin 1 applic 05/28/23 20:23 05/28/23 21:30 Lanolin Oint 7 Gm TOPICAL 1 applic PRN PRN Administration DRYNESS Levothyroxine Sodium 112 mcg 05/30/23 06:00 05/31/23 05:54 Levothyroxine 112 Mcg Tablet PO 112 mcg DAILY@06 JIE Administration Lisinopril 10 mg 05/29/23 09:00 05/31/23 08:03 Lisinopril 10 Mg Tablet PO 10 mg DAILY JIE Administration Multivitamins Therapeutic 1 tab 05/29/23 08:00 05/31/23 08:03 Multivitamin Therapeutic Tablet PO 1 tab DAILY@08 JIE Administration Mupirocin 1 applic 05/28/23 20:00 05/30/23 20:24 Mupirocin Oint 22 Gm TOPICAL 1 applic BEDTIME@20 JIE Administration Nystatin 1 applic 05/28/23 18:41 05/29/23 09:47 Nystatin Powder 15 Gm Btl TOPICAL 1 applic BID PRN Administration rash Nystatin 1 applic 05/28/23 20:00 05/30/23 20:24 Nystatin Cream 30 Gm TOPICAL 1 applic TID@,, JIE Administration Icsyn-9-Xhyb Ethyl Esters 1,000 mg 05/28/23 20:00 05/31/23 08:03 [place]-3 Fatty Acids 1,000 Mg Capsule PO 1,000 mg BID@, JIE Administration Pantoprazole Sodium 40 mg 05/29/23 08:00 05/31/23 08:[address] 40 Mg Tablet PO 40 mg DAILY@08 JIE Administration Silver Sulfadiazine 1 applic 05/29/23 08:00 05/31/23 08:03 Silver Sulfadiazine Cream 1% 50 Gm TOPICAL 1 applic BID@,17 JIE Administration Zonisamide 100 mg 05/28/23 20:00 05/31/23 08:03 Zonisamide 100 Mg Capsule PO 100 mg BID@08,20 JIE Administration PFSH Acute PFSH: Medical History Obesity (BMI 30-39.9) DDD (degenerative disc disease), lumbar Lumbar pain with radiation down left leg Restless leg Hypothyroid Atrial fibrillation With slow ventricular response. No pertinent past medical history Denies asthma, seizures, bleeding or clotting disorders, DVT/PE. PCP: ROSALVA Mcmillan Lives in assisted living facility Essential (primary) hypertension Anxiety and depression Dependent on walker for ambulation Surgical History H/O vaginal surgery 05/22/2020- Colpocleisis, single incision mid urethral sling and cystoscopy performed by Dr. Varner at [facility] History of colonoscopy 2007 Negative Family History Mother Diabetes Stroke Father Heart disease Sister Breast cancer diagnosed at age 45 Denies family history of Colon cancer Ovarian cancer Hyperlipidemia Hypertension Uterine cancer Thyroid disease Social History Smoking and tobacco/nicotine status: never used tobacco/nicotine Second hand smoke exposure: No Alcohol intake: never Substance/Drug Use: never Housing: Assisted Living Facility Marital status: / Vitals/I&O/Wt Last Vital Signs Temp 97.2 F L 05/31/23 04:00 Pulse 36 L 05/31/23 06:00 Resp 14 05/31/23 06:00 BP 113/51 05/31/23 06:00 Pulse Ox 96 05/31/23 06:00 O2 Del Method Nasal Cannula 05/31/23 04:00 O2 Flow Rate 2 05/31/23 04:00 05/30/23 05/31/23 05/31/23 22:59 06:59 14:59 Intake Total 120 / 520 Output Total 1999 1250 / 3250 Balance -1880 / -1480 -1250 / -2730 Weight last 48 hrs Weight 212 lb 11.2 oz Weight 207 lb Physical Exam Narrative: GENERAL: The patient is alert and oriented times three. Not in any acute distress. HEENT: Her whole face appears to be flushed. No icterus or lymphadenopathy.Oral cavity: There are no mucous membrane lesions. NECK: Trachea appears to be central. No masses noted. No JVD or thyromegaly appreciated. RESPIRATORY: Chest is symmetrical. No intercostals muscle retraction or any accessory muscle activation. There is no chest wall tenderness. Breath sounds are heard bilaterally. No rales or rhonchi heard. No evidence of any consolidation. BREASTS: Deferred. HEART: The heart sounds are normal. No S3 or S4. No significant murmurs. No pericardial rub ABDOMEN: No vessel pulsations or distention. No tenderness. No organomegaly appreciated. Bowel sounds are normally heard. : Deferred. RECTAL: Deferred. LYMPHATIC: No lymphadenopathy noted in the neck. EXTREMITIES: No edema or cyanosis. No clubbing. MUSCULOSKELETAL: No acute joint deformities or swelling SKIN: There are no significant rashes or ecchymosis NEUROPSYCHIATRIC: The patient is alert and oriented x3. Appears to be in a good mood. No tremors or rigidity noted. Urinary Catheter Management: Guillen: Cath Placed During This Visit: yes Reason for Continuing Indwelling Catheter: Accurate Measurement of Urinary Output in Critically Ill Patients Urinary Catheter Date of Insertion: 05/29/23 Urinary Catheter Time of Insertion: 02:15 Data 06/01/23 03:57 06/01/23 03:57 Other Labs: Laboratory Last Values WBC 8.40 10^3/uL (3.29-11.43) 05/31/23 03:07 RBC 4.16 10^6/uL (3.85-5.65) 05/31/23 03:07 Hgb 12.40 g/dL (11.27-16.99) 05/31/23 03:07 Hct 38.6 % (36-47) 05/31/23 03:07 MCV 92.8 fl (85-98) 05/31/23 03:07 MCH 29.8 pg (27-33) 05/31/23 03:07 MCHC 32.1 g/dL (30-55) 05/31/23 03:07 RDW 13.1 % (12.1-15.1) 05/31/23 03:07 Plt Count 223 10^3/cmm (157-399) 05/31/23 03:07 MPV 10.3 fL (7.4-10.4) 05/31/23 03:07 Neut % (Auto) 61.6 % 05/31/23 03:07 Lymph % (Auto) 23.7 % 05/31/23 03:07 [place] % (Auto) 11.5 % 05/31/23 03:07 Eos % (Auto) 2.1 % 05/31/23 03:07 Baso % (Auto) 0.7 % 05/31/23 03:07 Neut # (Auto) 5.17 10^3/uL (1.8-7.7) 05/31/23 03:07 Lymph # (Auto) 2.0 10^3/uL (0.8-4.8) 05/31/23 03:07 [place] # (Auto) 1.0 10^3/uL (0.2-0.9) H 05/31/23 03:07 Eos # (Auto) 0.2 10^3/uL (0.0-0.8) 05/31/23 03:07 Baso # (Auto) 0.1 10^3/uL (0.0-0.1) 05/31/23 03:07 Nucleated RBC % (auto) 0 % 05/31/23 03:07 Nucleated RBCs # 0.0 /100WBC 05/31/23 03:07 Sodium 142 mmol/L (136-145) 05/31/23 03:07 Potassium 3.8 mmol/L (3.5-5.1) 05/31/23 03:07 Chloride 104 mmol/L (98-107) 05/31/23 03:07 Carbon Dioxide 31 mmol/L (22-29) H 05/31/23 03:07 Anion Gap 10.8 (5-19) 05/31/23 03:07 BUN 17 mg/dL (8-23) 05/31/23 03:07 Creatinine 0.9 mg/dL (0.5-0.9) 05/31/23 03:07 GFR Calculation Not Reportable 05/31/23 03:07 Glucose 98 mg/dL (65-115) 05/31/23 03:07 Calculated Osmolality 296 mOsm/kg (285-295) H 05/31/23 03:07 Calcium 10.7 mg/dL (8.5-10.5) H 05/31/23 03:07 Phosphorus 2.6 mg/dL (2.5-4.5) 05/31/23 03:07 Magnesium 1.8 mg/dL (1.7-2.3) 05/31/23 03:07 Total Bilirubin 0.3 mg/dL (0.15-1.2) 05/31/23 03:07 AST 15 U/L (0-32) 05/31/23 03:07 ALT 13 U/L (0-33) 05/31/23 03:07 Alkaline Phosphatase 90 U/L (35-105) 05/31/23 03:07 Troponin T Baseline 29 ng/L (0-10) H 05/28/23 14:07 Troponin T 120 Minute 28.53 ng/L (0-10) H 05/28/23 15:35 Delta Troponin T -0.47 ABS# (0-10) L 05/28/23 15:35 Troponin T Hi Sens 6Hr 31.73 ng/L (0-10) H 05/28/23 20:01 Troponin T Hi Sens 6Hr Delta 2.73 ng/L (0-12) 05/28/23 20:01 C-Reactive Protein 3.8 mg/L (0.0-4.9) 05/31/23 03:07 Total Protein 5.9 g/dL (6.6-8.7) L 05/31/23 03:07 Albumin 3.5 g/dL (3.5-5.2) 05/31/23 03:07 Globulin 2.4 g/dL (1.3-4.6) 05/31/23 03:07 Procalcitonin 0.06 ng/mL (0-0.5) 05/31/23 03:07 TSH 0.12 uIU/mL (0.27-4.20) L 05/28/23 14:07 Urine Color Light yellow (Yellow) 05/28/23 13:40 Urine Appearance Cloudy (CLEAR) A 05/28/23 13:40 Urine pH 6 (5-7) 05/28/23 13:40 Ur Specific [place] 1.015 (1.005-1.030) 05/28/23 13:40 Urine Protein Neg (Negative) 05/28/23 13:40 Urine Glucose (UA) Norm (Normal) 05/28/23 13:40 Urine Ketones Negative (Negative) 05/28/23 13:40 Urine Blood Neg (Negative) 05/28/23 13:40 Urine Nitrate Negative (Negative) 05/28/23 13:40 Urine Bilirubin Neg (Negative) 05/28/23 13:40 Urine Urobilinogen Neg mg/dL (Negative) 05/28/23 13:40 Ur Leukocyte Esterase 2+ (Negative) H 05/28/23 13:40 Urine RBC 0-4 /hpf (0-2) H 05/28/23 13:40 Urine WBC Too numerous to cnt /hpf (0-5) H 05/28/23 13:40 Ur Squamous Epith Cells 0-4 /hpf (0-5) H 05/28/23 13:40 Ur Transition Epith Cell 0-4 /hpf 05/28/23 13:40 Amorphous Sediment Not Reportable 05/28/23 13:40 Urine Bacteria Trace /hpf (NONE) 05/28/23 13:40 Urine Mucus Trace /hpf 05/28/23 13:40 Urine Yeast 2+ /hpf H 05/28/23 13:40 Micro: Microbiology 05/28/23 13:40 Urine Culture - Preliminary Urine,Clean Catch Yeast species Other data: The EKG showed sinus rhythm with a second-degree type I AV block.. Heart rate of 38 bpm A&P Assessment and plan (1) Symptomatic bradycardia: Patient has episodes of atrial fibrillation with slow and fast ventricular rate and intermittent second-degree type I AV block. Currently she seems to be asymptomatic. Her overall functional status is very poor. In view of the recurrent syncopal/near syncopal episodes, for further evaluation of her condition, it may be appropriate to go ahead with a permanent pacemaker implantation. In view of her poor functional status and intermittent atrial fibrillation, single-chamber pacemaker device might be appropriate. (2) Atrial fibrillation with slow ventricular response: Patient has been on long-term oral anticoagulation. She is off the Eliquis for the last more than 2 days. As of now she is not on any antiarrhythmic or AV dinesh blocking agents. May be continue the same. I may [place] do an EKG today. (3) Essential (primary) hypertension: Currently normotensive (4) Hypothyroid: Clinically euthyroid. May continue on the current measures. Qualifiers: Hypothyroidism type: other Qualified Code(s): E03.8 - Other specified hypothyroidism (5) UTI (urinary tract infection): Patient has a history of UTI. Patient has not had any fever for the last more than 72 hours. Her white cell count has been staying in the normal range. Repeat UA is pending. Qualifiers: Hematuria presence: without hematuria Urinary tract infection type: site unspecified Qualified Code(s): N39.0 - Urinary tract infection, site not specified Plan I discussed with the patient and her daughter about the permanent pacemaker implantation. The risk of bleeding, hematoma, vascular injury, myocardial perforation, pericardial tamponade pneumothorax, infection, renal failure and other concomitant complications were explained in detail. The patient [] understood this well and consented to proceed. Will be repeating the urinalysis today I will do an echocardiogram to evaluate the LV function and rule out any other pathology. Based on the results of the above tests and the patient's clinical progress, further recommendations will be made.. Coding Level of Care Code 68528 Diagnoses Symptomatic bradycardia R00.1 Atrial fibrillation with slow ventricular response I48.91 Essential (primary) hypertension I10 Other specified hypothyroidism E03.8 Hypothyroidism type: other Urinary tract infection without hematuria, site unspecified N39.0 Hematuria presence: without hematuria Urinary tract infection type: site unspecified
[2023-05-31] MEDS: nystatin cream 30 gm 1 APPLIC TOPICAL ×2 (09:53→19:39)
[2023-05-31 10:00] LABS: Add Urine Microscopic? YES; Bilirubin Urine Neg (Negative); Blood Urine 3+ (Negative); Glucose Urine UA Norm (Normal); Ketones Urine Negative (Negative); Leukocyte Esterase Urine 2+ (Negative); Nitrate Urine Negative (Negative); Protein Urine 1+ (Negative); Specific Gravity, Urine 1.015 (1.005-1.030); Urine Appearance Clear (CLEAR); Urine Color Yellow (Yellow); Urobilinogen Urine Norm (Negative); pH Urine 5 (5-7)
[2023-05-31 10:02] LABS: Add Urine Culture? Yes; Bacteria Urine 1+ /hpf; RBC Urine 15-25 /hpf (0-2); Squamous Epithelial Cell Urine RARE /hpf (0-5); WBC Urine 25-40 /hpf (0-5)
--- NOTE | 2023-05-31 10:35 | XRR_ITS ---
PROCEDURE INFORMATION: Exam: XR Chest Exam date and time: 05/31/2023 10:49 AM Age: 83 years old Clinical indication: Shortness of breath; Additional info: SOB TECHNIQUE: Imaging protocol: Radiologic exam of the chest. Views: 1 view. COMPARISON: CR XR chest 1V portable [id number] 05/28/2023 1:30 PM FINDINGS: Lungs: Unremarkable. No consolidation. Pleural spaces: Unremarkable. No pleural effusion. No pneumothorax. Heart/Mediastinum: Unremarkable. No cardiomegaly. Bones/joints: Unremarkable. XR/XR chest 1V portable [id number] IMPRESSION: No acute findings.
--- NOTE | 2023-05-31 10:37 | USCV_ITS ---
Rosalva Hyatt Age: 83 Gender: F : 1940 Exam Date: 05/31/2023 10:52 Ordering Phys: Jayce Dickson MD ([email or web address]) Technologist: Exam Location: [facility] Indication: afib, syncope BP: 119 / 43 HR: 62 Rhythm: Sinus Technical Quality: Adequate MEASUREMENTS (Male / Female) Normal Values 2D ECHO LV Diastolic Diameter PLAX 4.7 cm 4.2 - 5.9 / 3.9 - 5.3 cm IVS Diastolic Thickness 1.1 cm 0.6 - 1.0 / 0.6 - 0.9 cm IVS Systolic Thickness 1.7 cm LVPW Diastolic Thickness 1.2 cm 0.6 - 1.0 / 0.6 - 0.9 cm LVPW Systolic Thickness 1.6 cm LVOT Diameter 2.1 cm LV Ejection Fraction 2D Teich 64.3 % LV Ejection Fraction MOD 2C 56.9 % LV Ejection Fraction 2C AL 58.0 % LA Diameter 3.1 cm RA Systolic Volume 4C AL 43.4 ml RA Systolic Volume 4C MOD 40.9 ml Aorta at Sinotubular Diameter 3.1 cm DOPPLER AV Peak Velocity 166.0 cm/s LVOT Peak Velocity 102.0 cm/s AV Area Cont Eq vti 2.3 cm squared AV Area Cont Eq pk 2.1 cm squared MV Peak Velocity 88.0 cm/s MV Area PHT 3.0 cm squared Mitral E to A Ratio 1.0 TR Peak Velocity 74.0 cm/s TR Peak Gradient 2.2 mmHg PV Peak Velocity 114.0 cm/s FINDINGS Left Ventricle Normal left ventricular size and systolic function, EF 57%.abnormal septal motion consistent with conduction abnormality. Right Ventricle The right ventricle is normal in size and function. Right Atrium The right atrium is normal in size. Left Atrium The left atrium is normal in size. Mitral Valve No gross abnormalities noted Aortic Valve Thickened aortic valve. Tricuspid Valve No gross abnormalities noted Pulmonic Valve Mild pulmonary valve regurgitation. Pericardium Normal pericardium without effusion. Aorta Normal ascending aorta dimension. IVC The inferior vena cava appears normal. CONCLUSIONS Normal left ventricular size and systolic function, EF 57%. Abnormal septal motion consistent with conduction abnormality. Thickened aortic valve. Mild concentric left-ventricular hypertrophy Mild pulmonary valve regurgitation. Normal chamber sizes. There is no pericardial effusion. There are no intracardiac masses. Comparison with the previous study is difficult because of the difference in the technical quality. Dr Jayce Dickosn MD [facility] (Electronically Signed) Final Date: 31 May 2023 14:18 S
--- NOTE | 2023-05-31 11:27 | ECG_ITS ---
[facility] Test Date: 2023-05-31 Pat Name: Rosalva Hyatt Department: Room: ICU12 Gender: Female Demand Planning Manager: : 1940 Requested By: Jayce Dickson Order Number: [id number] Jluis MD: Poncho Kuhn M.D. Measurements Intervals [place] Rate: 58 P: 34 NV: 331 QRS: -28 QRSD: 115 T: 35 QT: 409 QTc: 403 Interpretive Statements SINUS BRADYCARDIA WITH FIRST DEGREE AV BLOCK BORDERLINE LEFT AXIS DEVIATION [QRS AXIS < -20] MODERATE INTRAVENTRICULAR CONDUCTION DELAY [110+ ms QRS DURATION] MODERATE VOLTAGE CRITERIA FOR LVH, CONSIDER NORMAL VARIANT [MEETS CRITERIA IN ONE OF: R(aVL), S(V1), R(V5), R(V5/V6)+S(V1)] Compared to ECG 05/28/2023 14:52:34 First degree AV block now present Intraventricular conduction delay now present Myocardial infarct finding no longer present Electronically Signed On 05-31-2023 13:19:10 CDT by Poncho Kuhn M.D. [id number]
[2023-05-31] MEDS: cefTRIAXone 1,000 MG in sodium chloride 0.9% (plus) 50 ML 100 MG IV (11:48)
--- NOTE | 2023-05-31 12:46 | P.PN_ITS ---
Subjective 2 Subjective: Patient was seen this morning, she has no complaints, no fevers, chills, no cough no abdominal pain, Vitals/I&O/Wt Last Vital Signs Temp 97.2 F L 05/31/23 10:00 Pulse 59 L 05/31/23 12:00 Resp 16 05/31/23 12:00 BP 117/72 05/31/23 12:00 Pulse Ox 97 05/31/23 12:00 O2 Del Method Nasal Cannula 05/31/23 04:00 O2 Flow Rate 2 05/31/23 04:00 05/30/23 05/31/23 05/31/23 22:59 06:59 14:59 Intake Total 120 / 520 500 / 500 Output Total 1999 / 1999 1250 / 3250 Balance -1880 / -1480 -1250 / -2730 500 / 500 Weight last 48 hrs Weight 96.479 kg Weight 93.894 kg Physical Exam 2 Const: COMMON NORMALS: no acute distress and patient oriented x3 Resp: COMMON NORMALS: normal respiratory effort, No retractions, No use of accessory muscles and clear to auscultation bilaterally AUSCULTATION: clear to auscultation bilaterally Cardio: COMMON NORMALS: regular rate, regular rhythm, S1 normal heart sound present and S2 normal heart sound present RATE: regular rate RHYTHM: r egular rhythm HEART SOUNDS: S1 normal heart sound present and S2 normal heart sound present GI: COMMON NORMALS: Normal to inspection, nondistended, normoactive bowel sounds present and non-tender Extremity: COMMON NORMALS: no pedal edema Neuro: COMMON NORMALS: patient oriented x3 Psych: COMMON NORMALS: mental status grossly normal Urinary Catheter Management: Guillen: Cath Placed During This Visit: yes Reason for Continuing Indwelling Catheter: Accurate Measurement of Urinary Output in Critically Ill Patients Urinary Catheter Date of Insertion: 05/29/23 Urinary Catheter Time of Insertion: 02:15 Data 05/31/23 03:07 05/31/23 03:07 Micro: Microbiology 05/31/23 11:10 Blood Culture - Preliminary Blood SPECIMEN COLLECTED 05/31/23 11:02 Blood Culture - Preliminary Blood SPECIMEN COLLECTED 05/28/23 13:40 Urine Culture - Preliminary Urine,Clean Catch Yeast species A&P Assessment and plan (1) Bradycardia: Patient has had a longstanding asymptomatic bradycardia running around 20-50 Now with symptomatic bradycardia Mobitz type II. Plans are for pacemaker by Dr. Dickson on Wednesday. Unfortunately the patient must be maintained in the ICU due to hospital capability. Please note patient is not on any drugs that would induce bradycardia. TSH is actually suppressed (2) Mobitz (type) II atrioventricular block: (3) Atrial fibrillation with slow ventricular response: (4) Alteration in mobility associated with pain: (5) Recurrent UTI: Yeast Treat with Diflucan ? Will start Rocephin as repeat urine analysis shows bacteria, leukocyte Estrace (6) Dependent on walker for ambulation: (7) Anxiety and depression: (8) Essential (primary) hypertension: Per home medication list patient takes lisinopril and Lasix that would affect blood pressure (9) Lives in assisted living facility: (10) Hypothyroid: Decrease levothyroxine to 112 mcg a day Qualifiers: Hypothyroidism type: other Qualified Code(s): E03.8 - Other specified hypothyroidism Plan Pacemaker on Wednesday, May 31. Maintain in ICU. Add Rocephin, continue IV Diflucan Attestations 2 Medical Necessity Statement*: Patient requires hospitalization for bradycardia, concerns for type II hemiblock, UTI on Rocephin, Diflucan Diagnoses Bradycardia R00.1 Mobitz (type) II atrioventricular block I44.1 Atrial fibrillation with slow ventricular response I48.91 Alteration in mobility associated with pain Z78.9; R52 Recurrent UTI N39.0 Dependent on walker for ambulation Z99.89 Anxiety and depression F41.9; F32.9 Essential (primary) hypertension I10 Lives in assisted living facility Z59.3 Other specified hypothyroidism E03.8 Hypothyroidism type: other
[2023-05-31] MEDS: fluconazole premix 100 MG in empty flexible container 1 EACH 50 MG IV (13:11)
[2023-05-31] MEDS: mupirocin oint 22 gm 1 APPLIC TOPICAL (19:40)
[2023-05-31] MEDS: acetaminophen 325 mg Tablet 650 MG PO (22:57)
[2023-06-01] VITALS (61 sets, daily range): BP systolic 83–127; BP diastolic 35–70; PULSE 35–77; RESP 10–26; TEMP 36.1–37.1; O2SAT 89–98
[2023-06-01 04:32] LABS: Basophils # 0.1 10^3/uL (0.0-0.1); Basophils % 1.1 %; Eosinophils # 0.2 10^3/uL (0.0-0.8); Eosinophils % 2.2 %; Hematocrit 37.2 % (36-47); Lymphocytes # 2.2 10^3/uL (0.8-4.8); Lymphocytes % 30.6 %; Mean Corpuscular HGB Conc 31.7 g/dL (30-55); Mean Corpuscular Hemoglobin 29.8 pg (27-33); Mean Corpuscular Volume 93.9 fl (85-98); Mean Platelet Volume 10.3 fL (7.4-10.4); Monocytes # 0.7 10^3/uL (0.2-0.9); Monocytes % 10.1 %; Neutrophils # 4.05 10^3/uL (1.8-7.7); Neutrophils % 55.7 %; Nucleated Red Blood Cells % 0 %; Platelet Count 207 10^3/cmm (157-399); Red Blood Count 3.96 10^6/uL (3.85-5.65); Red Cell Distribution Width 13.1 % (12.1-15.1); White Blood Count 7.26 10^3/uL (3.29-11.43)
[2023-06-01 04:52] LABS: Alanine Aminotransferase 14 U/L (0-33); Albumin Level 3.2 g/dL (3.5-5.2); Alkaline Phosphatase 85 U/L (35-105); Anion Gap 12.9 (5-19); Blood Urea Nitrogen 28 mg/dL (8-23); C Reactive Protein 5.8 mg/L (0.0-4.9); Calcium 10.5 mg/dL (8.5-10.5); Carbon Dioxide 28 mmol/L (22-29); Chloride 102 mmol/L (98-107); Creatinine Clr Calc Pharmacy 40.8189; Globulin 2.8 g/dL (1.3-4.6); Glucose 118 mg/dL (65-115); Magnesium 1.8 mg/dL (1.7-2.3); Osmolality Calculated 295 mOsm/kg (285-295); Phosphorus 3.1 mg/dL (2.5-4.5); Potassium 3.9 mmol/L (3.5-5.1); Sodium 139 mmol/L (136-145); Total Bilirubin 0.2 mg/dL (0.15-1.2)
[2023-06-01 05:00] LABS: Procalcitonin 0.09 ng/mL (0-0.5)
[2023-06-01 05:04] LABS: Aspartate Amino Transferase 18 U/L (0-32)
[2023-06-01] MEDS: sodium chloride 0.9% 1,000 ML 75 ML IV (05:33)
[2023-06-01] MEDS: levothyroxine 112 mcg Tablet PO (05:39)
[2023-06-01] MEDS: fluticasone nasal spray 16gm Btl 1 SPRAY INTRANASAL ×2 (05:41→17:51)
--- NOTE | 2023-06-01 07:51 | W.PM.OPSUD ---
Surgery/Procedure H&P Update DATE OF PROCEDURE: June 01, 2023 DATE H&P PERFORMED: 05/31/23 H&P UPDATE INFORMATION: I have reviewed H&P completed within last 30 days, I have examined patient prior to procedure and No changes to prior documentation PREOP DIAGNOSIS: Symptomatic bradycardia/atrial fibrillation PRIMARY INDICATION FOR PROCEDURE: Same as above PLANNED PROCEDURE: Operation Date: 06/01/23 07:35 Proposed Procedures p Pacemaker Insertion(Not Applicable) - Jayce Dickson MD PATIENT REASSESSED PRIOR TO SEDATION, WITH NO CHANGE NOTED: Yes PHYSICAL EXAM: alert, oriented x 3 and clear to auscultation bilaterally AIRWAY EVAL/ANESTHESIA PLAN: normal airway, see other exam findings, ASA III, Monitored Anesthesia, Local Anesthesia, Risks, benefits & alternatives of sedation and/or procedure discussed and Patient agrees to continue as planned
--- NOTE | 2023-06-01 09:46 | PM.OP ---
Operative Report Date of procedure: June 01, 2023 Surgeon: Jayce Dickson MD Procedure: LOCATION: Outpatient PREOPERATIVE DIAGNOSES: POSTOPERATIVE DIAGNOSES: Same. COMPLICATIONS: None ESTIMATED BLOOD LOSS: None BRIEF HISTORY: 83-year-old white female with a history of intermittent atrial fibrillation presented with complaints of syncope/near syncope. She was found to be bradycardic with a heart rate in the 30s, intermittent second-degree type I AV block. For further management of the patient's condition, a permanent pacemaker implantation was recommended. Because of her history of atrial fibrillation and poor functional status, it was decided to implant a single-chamber device A single-chamber permanent pacemaker implantation was recommended for further management because of symptomatic bradycardia. The procedure was explained to the patient in detail with the risks and benefits. The risks of bleeding, hematoma, vascular injury, infection, pneumothorax, myocardial perforation and other concomitant complications were explained in detail, which the patient understood well and consented to proceed. PROCEDURE DESCRIPTION: The patient was brought to the Cardiac Catheterization Lab. The left and the right side of the neck and the subclavian area were cleaned and draped in a sterile fashion. 1% Xylocaine was used as the local anesthetic agent. A left subclavian venous access was obtained using a micropuncture needle system, under fluoroscopic guidance, after injecting 20 mL of Omnipaque in the left antecubital vein. A 2-inch long incision was made 2.0 centimeters below the midclavicular region. By sharp and blunt dissection, a pacemaker pocket was made. Over the guidewire, a 7-Lebanese venous sheath with dilator was advanced. The venous dilator and the guidewire were taken out. A screw-in ventricular lead was advanced through the venous sheath and was positioned towards the right ventricle. Under fluoroscopy guidance, the ventricular lead was positioned toward the right ventricular apex. Good pacing and sensing thresholds were obtained. The lead was secured to the endocardium by advancing the helix. The stability of the lead was tested by gentle twisting movements and also by asking the patient to take some deep breaths and cough The venous sheath was peeled off at this time. The lead was secured to the pectoralis fascia by suturing with 1-0 Surgilon. The pacemaker pocket was copiously irrigated with Vancomycin solution. Complete hemostasis was achieved. Sponge counts were confirmed. The leads was attached to a Elastica generator. The lead was positioned behind the generator and the generator was attached to the pectoralis fascia by suturing with 0 Surgilon. The pocket was closed in layers. Skin was approximated using 4-0 Vicryl. IMPLANTED DEVICES: VENTRICULAR LEAD: Model number: 5076/[id number] Serial number: [id number] Brand: Elastica GENERATOR Model number: W3 SRO1 Serial number: [id number] Brand: [employer] SR MRI SureScan Make: Medtronic IMPLANTATION DATA: With the pacing system analyzer, the R-wave sensing was 11.5 millivolts with a lead impedance of 779 ohms and a pacing threshold of 0.5 volts at 0.4 milliseconds. Through the device, the R-wave sensing was 13.4 millivolts with a lead impedance of 798 and a pacing threshold of 0.75 volts at 0.4 milliseconds. The pacemaker was set for VVIR mode with upper rate of 130 and a lower rate of 50. A pressure dressing was applied over the pacemaker site. The patient was transferred to the Medical Floor in stable condition. A chest x-ray was ordered to confirm the lead position and also to rule out any pneumothorax.
[2023-06-01] MEDS: ARIPiprazole 10 mg Tablet PO (10:04)
[2023-06-01] MEDS: pantoprazole DR 40 mg Tablet PO (10:04)
[2023-06-01] MEDS: FUROsemide 40 mg Tablet PO ×2 (10:04→13:59)
[2023-06-01] MEDS: omega-3 fatty acids 1,000 mg Capsule 1000 MG PO ×2 (10:04→19:52)
[2023-06-01] MEDS: lisinopril 10 mg Tablet PO (10:05)
[2023-06-01] MEDS: multivitamin therapeutic Tablet 1 TAB PO (10:05)
[2023-06-01] MEDS: zonisamide 100 MG Capsule PO ×2 (10:05→19:52)
[2023-06-01] MEDS: silver sulfadiazine cream 1% 50 gm 1 APPLIC TOPICAL ×2 (10:10→17:51)
[2023-06-01] MEDS: nystatin cream 30 gm 1 APPLIC TOPICAL ×3 (10:10→19:54)
[2023-06-01] MEDS: duloxetine 30 mg Capsule PO ×2 (10:17→19:52)
[2023-06-01] MEDS: docusate sodium 100 mg Capsule PO ×2 (10:17→17:50)
[2023-06-01] MEDS: fluconazole premix 200 MG/100 ML PREMIX 100 MG IV (10:18)
[2023-06-01] MEDS: cefTRIAXone 1,000 MG in sodium chloride 0.9% (plus) 50 ML 100 MG IV (10:19)
--- NOTE | 2023-06-01 10:30 | PC.NURSE ---
received from cardiac optical laboratory technician s/p pacemaker insertion,at 0955.report received.pt is alert and oriented x 3.denies pain at present.sr on monitor.left upper chest bulky drsg in place.left arm in immobilizer.pt instructed in activity restrictions s/p pm insertion...and instructed to notify staff for any bleeding,pain,numbness,,or for any concerns at all.pt verb understanding of instructions
--- NOTE | 2023-06-01 16:04 | P.PN_ITS ---
Subjective 2 Subjective: Patient was seen this morning, denies any fevers, no chills, no cough, going for pacemaker placement Vitals/I&O/Wt Last Vital Signs Temp 96.9 F L 06/01/23 04:00 Pulse 51 L 06/01/23 15:00 Resp 14 06/01/23 15:00 BP 95/52 06/01/23 15:00 Pulse Ox 93 06/01/23 15:00 O2 Del Method Room Air 06/01/23 04:00 O2 Flow Rate 2 05/31/23 04:00 06/01/23 06/01/23 06/01/23 06:59 14:59 22:59 Intake Total 750 / 750 Output Total 650 / 2100 Balance -650 / -1150 750 / 750 Weight last 48 hrs Weight 96.479 kg Weight 96.479 kg Physical Exam 2 Const: COMMON NORMALS: no acute distress and patient oriented x3 Resp: COMMON NORMALS: normal respiratory effort, No retractions, No use of accessory muscles and clear to auscultation bilaterally AUSCULTATION: clear to auscultation bilaterally Cardio: COMMON NORMALS: regular rate, regular rhythm, S1 normal heart sound present and S2 normal heart sound present RATE: regular rate RHYTHM: r egular rhythm HEART SOUNDS: S1 normal heart sound present and S2 normal heart sound present GI: COMMON NORMALS: Normal to inspection, nondistended, normoactive bowel sounds present and non-tender Extremity: COMMON NORMALS: no pedal edema Neuro: COMMON NORMALS: patient oriented x3 Psych: COMMON NORMALS: mental status grossly normal Urinary Catheter Management: Guillen: Cath Placed During This Visit: yes Reason for Continuing Indwelling Catheter: Accurate Measurement of Urinary Output in Critically Ill Patients Urinary Catheter Date of Insertion: 05/29/23 Urinary Catheter Time of Insertion: 02:15 Data 06/01/23 03:57 06/01/23 03:57 Micro: Microbiology 05/31/23 11:10 Blood Culture - Preliminary Blood NEGATIVE TO DATE 05/31/23 11:02 Blood Culture - Preliminary Blood NEGATIVE TO DATE 05/31/23 09:10 Urine Culture - Preliminary Urine Catheterized 05/28/23 13:40 Urine Culture - Final Urine,Clean Catch Selma glabrata A&P Assessment and plan (1) Bradycardia: Patient has had a longstanding asymptomatic bradycardia running around 20-50 Now with symptomatic bradycardia Mobitz type II. Plans are for pacemaker by Dr. Dickson on Wednesday. Unfortunately the patient must be maintained in the ICU due to hospital capability. Please note patient is not on any drugs that would induce bradycardia. TSH is actually suppressed (2) Mobitz (type) II atrioventricular block: (3) Atrial fibrillation with slow ventricular response: (4) Alteration in mobility associated with pain: (5) Recurrent UTI: -Treat with Diflucan ? Will start Rocephin as repeat urine analysis shows bacteria, leukocyte Estrace (6) Dependent on walker for ambulation: (7) Anxiety and depression: (8) Essential (primary) hypertension: Per home medication list patient takes lisinopril and Lasix that would affect blood pressure (9) Lives in assisted living facility: (10) Hypothyroid: Decrease levothyroxine to 112 mcg a day Qualifiers: Hypothyroidism type: other Qualified Code(s): E03.8 - Other specified hypothyroidism Plan Pacemaker on Wednesday, Selma glabrata UTI, on IV Diflucan Attestations 2 Medical Necessity Statement*: Patient requires hospitalization for Selma glabrata UTI, pacemaker placement today Diagnoses Bradycardia R00.1 Mobitz (type) II atrioventricular block I44.1 Atrial fibrillation with slow ventricular response I48.91 Alteration in mobility associated with pain Z78.9; R52 Recurrent UTI N39.0 Dependent on walker for ambulation Z99.89 Anxiety and depression F41.9; F32.9 Essential (primary) hypertension I10 Lives in assisted living facility Z59.3 Other specified hypothyroidism E03.8 Hypothyroidism type: other
--- NOTE | 2023-06-01 16:08 | P.PN_ITS ---
Subjective 2 Subjective: Patient had successful permanent pacemaker placement. Doing well. Vitals/I&O/Wt Last Vital Signs Temp 96.9 F L 06/01/23 04:00 Pulse 51 L 06/01/23 15:00 Resp 14 06/01/23 15:00 BP 95/52 06/01/23 15:00 Pulse Ox 93 06/01/23 15:00 O2 Del Method Room Air 06/01/23 04:00 O2 Flow Rate 2 05/31/23 04:00 06/01/23 06/01/23 06/01/23 06:59 14:59 22:59 Intake Total 750 / 750 Output Total 650 / 2100 Balance -650 / -1150 750 / 750 Weight last 48 hrs Weight 212 lb 11.2 oz Weight 212 lb 11.2 oz Physical Exam 2 Narrative: GENERAL: Patient is alert, awake and oriented x3. [] NECK: No jugular vein distension. [] HEENT: No cyanosis. No icterus. No pallor. [] HEART: Regular, S1 and S2. LUNGS: Clear to auscultate bilaterally. [] CENTRAL NERVOUS SYSTEM: Grossly nonfocal. [] EXTREMITIES: Lower extremities with 1+ edema bilaterally. Urinary Catheter Management: Guillen: Cath Placed During This Visit: yes Reason for Continuing Indwelling Catheter: Accurate Measurement of Urinary Output in Critically Ill Patients Urinary Catheter Date of Insertion: 05/29/23 Urinary Catheter Time of Insertion: 02:15 Data 06/02/23 04:25 06/02/23 04:25 Micro: Microbiology 05/31/23 11:10 Blood Culture - Preliminary Blood NEGATIVE TO DATE 05/31/23 11:02 Blood Culture - Preliminary Blood NEGATIVE TO DATE 05/31/23 09:10 Urine Culture - Preliminary Urine Catheterized 05/28/23 13:40 Urine Culture - Final Urine,Clean Catch Selma glabrata A&P Assessment and plan (1) Mobitz (type) II atrioventricular block: (2) Atrial fibrillation with slow ventricular response: (3) Essential (primary) hypertension: (4) Recurrent UTI: Plan Patient underwent successful placement of permanent pacemaker. Will reinitiate eliquis in 1-2 days. Thank you for involving us with care of this patient. We will continue to follow. please call with questions. Attestations 2 Medical Necessity Statement*: Care expected to cross 2 midnights. Coding Level of Care Code Acute Code for [facility] Diagnoses Mobitz (type) II atrioventricular block I44.1 Atrial fibrillation with slow ventricular response I48.91 Essential (primary) hypertension I10 Recurrent UTI N39.0
[2023-06-01] MEDS: heparin 5,000 unit/mL INJ 1 mL 5000 UNIT SUBCUT (17:50)
[2023-06-01] MEDS: mupirocin oint 22 gm 1 APPLIC TOPICAL (19:54)
[2023-06-02] VITALS (86 sets, daily range): BP systolic 93–148; BP diastolic 41–93; PULSE 49–94; RESP 4–28; TEMP 36.1–37.1; O2SAT 80–99
[2023-06-02 04:41] LABS: Basophils # 0.1 10^3/uL (0.0-0.1); Eosinophils # 0.2 10^3/uL (0.0-0.8); Eosinophils % 2.8 %; Hematocrit 37.5 % (36-47); Lymphocytes # 1.9 10^3/uL (0.8-4.8); Lymphocytes % 26.3 %; Mean Corpuscular HGB Conc 31.7 g/dL (30-55); Mean Corpuscular Hemoglobin 29.9 pg (27-33); Mean Corpuscular Volume 94.2 fl (85-98); Mean Platelet Volume 10.1 fL (7.4-10.4); Monocytes # 0.7 10^3/uL (0.2-0.9); Monocytes % 9.9 %; Neutrophils # 4.28 10^3/uL (1.8-7.7); Neutrophils % 59.4 %; Nucleated Red Blood Cells % 0 %; Platelet Count 179 10^3/cmm (157-399); Red Blood Count 3.98 10^6/uL (3.85-5.65); White Blood Count 7.19 10^3/uL (3.29-11.43)
[2023-06-02 05:06] LABS: Alanine Aminotransferase 15 U/L (0-33); Albumin Level 3.3 g/dL (3.5-5.2); Alkaline Phosphatase 85 U/L (35-105); Anion Gap 14.1 (5-19); Aspartate Amino Transferase 17 U/L (0-32); Blood Urea Nitrogen 28 mg/dL (8-23); C Reactive Protein 4.2 mg/L (0.0-4.9); Calcium 10.6 mg/dL (8.5-10.5); Carbon Dioxide 27 mmol/L (22-29); Chloride 105 mmol/L (98-107); Creatinine Clr Calc Pharmacy 54.4252; Glucose 108 mg/dL (65-115); Magnesium 1.8 mg/dL (1.7-2.3); Osmolality Calculated 300 mOsm/kg (285-295); Phosphorus 3.5 mg/dL (2.5-4.5); Potassium 4.1 mmol/L (3.5-5.1); Sodium 142 mmol/L (136-145); Total Bilirubin 0.3 mg/dL (0.15-1.2); Total Protein 5.3 g/dL (6.6-8.7)
[2023-06-02 05:07] LABS: Procalcitonin 0.08 ng/mL (0-0.5)
[2023-06-02] MEDS: heparin 5,000 unit/mL INJ 1 mL 5000 UNIT SUBCUT (06:07)
[2023-06-02] MEDS: levothyroxine 112 mcg Tablet PO (06:07)
[2023-06-02] MEDS: fluticasone nasal spray 16gm Btl 1 SPRAY INTRANASAL ×2 (06:11→20:29)
--- NOTE | 2023-06-02 06:47 | P.PN_ITS ---
Subjective 2 Subjective: Patient had permanent pacemaker placement yesterday. Pacemaker appropriately functioning. Has mild rash at site of dressing on anterior chest. Vitals/I&O/Wt Last Vital Signs Temp 96.9 F L 06/02/23 04:00 Pulse 58 L 06/02/23 06:00 Resp 18 06/02/23 06:00 BP 119/75 06/02/23 06:00 Pulse Ox 95 06/02/23 06:00 O2 Del Method Room Air 06/02/23 06:00 O2 Flow Rate 2 05/31/23 04:00 06/01/23 06/01/23 06/02/23 14:59 22:59 06:59 Intake Total 750 / 750 1480 / 2230 Output Total 1000 / 1000 1000 / 2000 Balance 750 / 750 480 / 1230 -1000 / 230 Weight last 48 hrs Weight 213 lb 12.8 oz Weight 212 lb 11.2 oz Physical Exam 2 Narrative: GENERAL: Patient is alert, awake and oriented x3. [] NECK: No jugular vein distension. [] HEENT: No cyanosis. No icterus. No pallor. [] HEART: Regular, S1 and S2. LUNGS: Clear to auscultate bilaterally. [] CENTRAL NERVOUS SYSTEM: Grossly nonfocal. [] EXTREMITIES: Lower extremities with 1+ edema bilaterally. Urinary Catheter Management: Guillen: Cath Placed During This Visit: yes Reason for Continuing Indwelling Catheter: Accurate Measurement of Urinary Output in Critically Ill Patients Urinary Catheter Date of Insertion: 05/29/23 Urinary Catheter Time of Insertion: 02:15 Data 06/03/23 05:23 06/03/23 05:23 Micro: Microbiology 05/31/23 11:10 Blood Culture - Preliminary Blood NEGATIVE TO DATE 05/31/23 11:02 Blood Culture - Preliminary Blood NEGATIVE TO DATE 05/31/23 09:10 Urine Culture - Preliminary Urine Catheterized A&P Assessment and plan (1) Mobitz (type) II atrioventricular block: (2) Atrial fibrillation with slow ventricular response: (3) Essential (primary) hypertension: (4) Recurrent UTI: Plan Patient's pacemaker is functioning appropriately. Can initiate Eliquis tomorrow. Possible discharge tomorrow. Attestations 2 Medical Necessity Statement*: Care expected to cross 2 midnights. Coding Level of Care Code Acute Code for [facility] Diagnoses Mobitz (type) II atrioventricular block I44.1 Atrial fibrillation with slow ventricular response I48.91 Essential (primary) hypertension I10 Recurrent UTI N39.0
--- NOTE | 2023-06-02 07:23 | XRR_ITS ---
PROCEDURE INFORMATION: Exam: XR Chest Exam date and time: 06/02/2023 6:37 AM Age: 83 years old Clinical indication: Device placement; Cardiac pacemaker placement or adjustment; Prior surgery; Surgery date: Post-operative (0-2 days); Surgery type: Pacer placement-; Additional info: Pacer placement- remove all ekg wires please TECHNIQUE: Imaging protocol: Radiologic exam of the chest. Views: 1 view. COMPARISON: CR XR chest 1V portable [id number] 05/31/2023 10:49 AM FINDINGS: Tubes, catheters and devices: Single lead pacemaker/defibrillator. The tip terminates in the right ventricle. Lungs: A 14 mm nodular density which projects in the right upper lobe is presumably the superposition of shadow is as it was not seen on 05/28 2023. Pleural spaces: Unremarkable. No pleural effusion. No pneumothorax. Heart/Mediastinum: See Vasculature finding. Vasculature: Mild cardiomegaly and uncoiling of the thoracic aorta. Bones/joints: Unremarkable. XR/XR chest 1V portable [id number] IMPRESSION: 1. Pacemaker as above. 2. Nodular density which projects on the right is presumably artifactual, consider a chest CT if clinically warranted.
--- NOTE | 2023-06-02 08:00 | ECG_ITS ---
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 Measurements Intervals Marissa Rate: 52 P: 0 ND: 0 QRS: -27 QRSD: 129 T: 62 QT: 430 QTc: 402 Interpretive Statements Second-degree type I AV block with the demand V pacing ELECTRONIC VENTRICULAR PACEMAKER -- CONTOUR ANALYSIS BASED ON INTRINSIC RHYTHM BORDERLINE LEFT AXIS DEVIATION [QRS AXIS < -20] LEFT VENTRICULAR HYPERTROPHY AND ST-T CHANGE [VOLTAGE CRITERIA PLUS ST/T ABNORMALITY] Compared to ECG 05/31/2023 11:27:10 ST (T wave) deviation now present Sinus bradycardia no longer present First degree AV block no longer present Intraventricular conduction delay no longer present Electronically Signed On 06-02-2023 18:45:17 CDT by Jayce Dickson M.D. [email or web address]
[2023-06-02] MEDS: pantoprazole DR 40 mg Tablet PO (08:23)
[2023-06-02] MEDS: ARIPiprazole 10 mg Tablet PO (08:24)
[2023-06-02] MEDS: lisinopril 10 mg Tablet PO (08:25)
[2023-06-02] MEDS: FUROsemide 40 mg Tablet PO ×2 (08:25→14:07)
[2023-06-02] MEDS: multivitamin therapeutic Tablet 1 TAB PO (08:26)
[2023-06-02] MEDS: zonisamide 100 MG Capsule PO ×2 (08:27→20:30)
[2023-06-02] MEDS: docusate sodium 100 mg Capsule PO ×2 (08:29→17:03)
[2023-06-02] MEDS: omega-3 fatty acids 1,000 mg Capsule 1000 MG PO ×2 (08:29→20:30)
[2023-06-02] MEDS: duloxetine 30 mg Capsule PO ×2 (08:30→20:30)
[2023-06-02] MEDS: vancomycin 1,000 MG in sodium chloride 0.9% 250 ML 250 MG IV (08:31)
[2023-06-02] MEDS: nystatin cream 30 gm 1 APPLIC TOPICAL ×2 (08:33→20:30)
[2023-06-02] MEDS: silver sulfadiazine cream 1% 50 gm 1 APPLIC TOPICAL ×2 (08:33→17:03)
[2023-06-02] MEDS: acetaminophen 325 mg Tablet 650 MG PO (08:58)
[2023-06-02] MEDS: cefTRIAXone 1,000 MG in sodium chloride 0.9% (plus) 50 ML 100 MG IV (10:54)
[2023-06-02] MEDS: fluconazole premix 200 MG/100 ML PREMIX 100 MG IV (10:57)
[2023-06-02] MEDS: sodium chloride 0.9% 1,000 ML 75 ML IV ×2 (10:58→23:54)
--- NOTE | 2023-06-02 11:53 | P.PN_ITS ---
Subjective 2 Subjective: Patient was seen this morning, she is alert to person, to place, not to time, she tells me that she is from [place] to she can transfer on her own, family numbers at bedside, plans on going to long term facility, Vitals/I&O/Wt Last Vital Signs Temp 98.7 F 06/02/23 08:00 Pulse 50 L 06/02/23 10:00 Resp 17 06/02/23 10:00 BP 122/41 06/02/23 10:00 Pulse Ox 95 06/02/23 10:00 O2 Del Method Room Air 06/02/23 08:00 O2 Flow Rate 2 05/31/23 04:00 06/01/23 06/02/23 06/02/23 22:59 06:59 14:59 Intake Total 1480 / 2230 540 / 540 Output Total 1000 / 1000 1000 / 2000 Balance 480 / 1230 -1000 / 230 540 / 540 Weight last 48 hrs Weight 96.978 kg Weight 96.479 kg Physical Exam 2 Const: COMMON NORMALS: no acute distress ORIENTATION/CONSCIOUSNESS: Yes awake, Yes oriented to person and Yes oriented to place; not oriented to time Resp: COMMON NORMALS: normal respiratory effort, No retractions, No use of accessory muscles and clear to auscultation bilaterally AUSCULTATION: clear to auscultation bilaterally Cardio: COMMON NORMALS: regular rate, regular rhythm, S1 normal heart sound present and S2 normal heart sound present RATE: regular rate RHYTHM: r egular rhythm HEART SOUNDS: S1 normal heart sound present and S2 normal heart sound present GI: COMMON NORMALS: Normal to inspection, nondistended, normoactive bowel sounds present and non-tender Extremity: COMMON NORMALS: no pedal edema Neuro: SENSORIUM/ORIENTATION: Yes oriented to person, Yes oriented to place and No oriented to time Psych: COMMON NORMALS: mental status grossly normal Urinary Catheter Management: Guillen: Cath Placed During This Visit: yes Reason for Continuing Indwelling Catheter: Accurate Measurement of Urinary Output in Critically Ill Patients Urinary Catheter Date of Insertion: 05/29/23 Urinary Catheter Time of Insertion: 02:15 Data 06/02/23 04:25 06/02/23 04:25 Micro: Microbiology 05/31/23 09:10 Urine Culture - Final Urine Catheterized 05/31/23 11:10 Blood Culture - Preliminary Blood NEGATIVE TO DATE 05/31/23 11:02 Blood Culture - Preliminary Blood NEGATIVE TO DATE A&P Assessment and plan (1) Bradycardia: Symptomatic bradycardia Mobitz type II, status post pacemaker placement (2) Mobitz (type) II atrioventricular block: (3) Atrial fibrillation with slow ventricular response: (4) Alteration in mobility associated with pain: (5) Recurrent UTI: (6) Dependent on walker for ambulation: (7) Anxiety and depression: (8) Essential (primary) hypertension: Per home medication list patient takes lisinopril and Lasix that would affect blood pressure (9) Lives in assisted living facility: (10) Hypothyroid: Decrease levothyroxine to 112 mcg a day Qualifiers: Hypothyroidism type: other Qualified Code(s): E03.8 - Other specified hypothyroidism Plan Pacemaker on Wednesday, Selma glabrata UTI, on IV Diflucan Attestations 2 Medical Necessity Statement*: Patient requires hospitalization for type II AV block, status post pacemaker placement, with [place]ma glabrata UTI, Diagnoses Bradycardia R00.1 Mobitz (type) II atrioventricular block I44.1 Atrial fibrillation with slow ventricular response I48.91 Alteration in mobility associated with pain Z78.9; R52 Recurrent UTI N39.0 Dependent on walker for ambulation Z99.89 Anxiety and depression F41.9; F32.9 Essential (primary) hypertension I10 Lives in assisted living facility Z59.3 Other specified hypothyroidism E03.8 Hypothyroidism type: other
--- NOTE | 2023-06-02 13:40 | PM.MISC ---
Miscellaneous Note Purpose of Documentation: Post pacemaker follow-up Note: Patient is doing okay. She has no hematoma or bleeding at the pacemaker site. Chest x-ray shows no evidence of pneumothorax. Lead position is appropriate. Pacemaker interrogation was done this morning, result is pending Continue on the current management Patient may go home with the Bactrim DS 1 tablet p.o. twice daily for 7 days Multivitamin 1 tablet p.o. daily for 2 weeks, in addition to the other medications Appointment the [facility] with the nurse practitioner in 1 week, for a wound check and pacemaker
[2023-06-02] MEDS: magnesium hydroxide 30 mL UDC PO (17:03)
[2023-06-02] MEDS: mupirocin oint 22 gm 1 APPLIC TOPICAL (20:31)
--- NOTE | 2023-06-02 21:22 | PC.NURSE ---
Report called to Barbara at 2100, resident transferred to med surg [id number] bed 2 at this time
[2023-06-03] VITALS: BP 121/69; PULSE 65; RESP 16; TEMP 36.6; O2SAT 93
[2023-06-03 04:00] VITALS: BP 128/62; PULSE 63; RESP 18; TEMP 36.8; O2SAT 92
[2023-06-03 05:50] LABS: Basophils # 0.1 10^3/uL (0.0-0.1); Basophils % 0.7 %; Eosinophils # 0.1 10^3/uL (0.0-0.8); Hematocrit 35.6 % (36-47); Lymphocytes # 1.4 10^3/uL (0.8-4.8); Lymphocytes % 20.1 %; Mean Corpuscular HGB Conc 31.5 g/dL (30-55); Mean Corpuscular Hemoglobin 29.8 pg (27-33); Mean Corpuscular Volume 94.7 fl (85-98); Mean Platelet Volume 10.3 fL (7.4-10.4); Monocytes # 0.8 10^3/uL (0.2-0.9); Monocytes % 11.6 %; Neutrophils # 4.63 10^3/uL (1.8-7.7); Neutrophils % 65.3 %; Nucleated Red Blood Cells % 0 %; Platelet Count 160 10^3/cmm (157-399); Red Blood Count 3.76 10^6/uL (3.85-5.65); White Blood Count 7.08 10^3/uL (3.29-11.43)
[2023-06-03] MEDS: levothyroxine 112 mcg Tablet PO (05:53)
[2023-06-03] MEDS: fluticasone nasal spray 16gm Btl 1 SPRAY INTRANASAL (05:53)
[2023-06-03 06:10] LABS: Blood Urea Nitrogen 32 mg/dL (8-23); Calcium 10.2 mg/dL (8.5-10.5); Carbon Dioxide 28 mmol/L (22-29); Chloride 105 mmol/L (98-107); Creatinine Clr Calc Pharmacy 54.6779; Glucose 123 mg/dL (65-115); Osmolality Calculated 304 mOsm/kg (285-295); Sodium 143 mmol/L (136-145)
[2023-06-03 06:25] VITALS: PULSE 61
--- NOTE | 2023-06-03 06:36 | PM.PN ---
Subjective Subjective: Patient is doing well. no chest pain Vitals/I&O/Wt Last Vital Signs Temp 98.3 F 06/03/23 04:00 Pulse 61 06/03/23 06:25 Resp 18 06/03/23 04:00 BP 128/62 06/03/23 04:00 Pulse Ox 92 06/03/23 04:00 O2 Del Method Room Air 06/03/23 04:00 O2 Flow Rate 2 05/31/23 04:00 06/02/23 06/02/23 06/03/23 14:59 22:59 06:59 Intake Total 880 / 880 970 / 1850 Output Total 1200 / 1200 Balance 880 / 880 -1200 / -320 970 / 650 Weight last 48 hrs Weight 214 lb 9 oz Weight 213 lb 12.8 oz Physical Exam Narrative: GENERAL: Patient is alert, awake and oriented x3. [] NECK: No jugular vein distension. [] HEENT: No cyanosis. No icterus. No pallor. [] HEART: Regular, S1 and S2. LUNGS: Clear to auscultate bilaterally. [] CENTRAL NERVOUS SYSTEM: Grossly nonfocal. [] EXTREMITIES: Lower extremities with 1+ edema bilaterally. Urinary Catheter Management: Guillen: Cath Placed During This Visit: yes, but has since been removed by the nurse Reason for Continuing Indwelling Catheter: Accurate Measurement of Urinary Output in Critically Ill Patients Urinary Catheter Date of Insertion: 05/29/23 Urinary Catheter Time of Insertion: 02:15 Date Urinary Catheter Removed: 06/02/23 Time Urinary Catheter Discontinued: 17:30 Data 06/03/23 05:23 06/03/23 05:23 Micro: Microbiology 05/31/23 09:10 Urine Culture - Final Urine Catheterized A&P Assessment and plan (1) Mobitz (type) II atrioventricular block: (2) Atrial fibrillation with slow ventricular response: (3) Essential (primary) hypertension: (4) Recurrent UTI: Plan Patient doing well. Pacemaker functioning appropriately. Start eliquis. Please call with questions Attestations Medical Necessity Statement*: Care expected to cross 2 midnights. Coding Level of Care Code Acute Code for [facility] Diagnoses Mobitz (type) II atrioventricular block I44.1 Atrial fibrillation with slow ventricular response I48.91 Essential (primary) hypertension I10 Recurrent UTI N39.0
[2023-06-03 07:32] VITALS: BP 110/56; PULSE 60; RESP 16; TEMP 36.4; O2SAT 93
[2023-06-03] MEDS: multivitamin therapeutic Tablet 1 TAB PO (08:53)
[2023-06-03] MEDS: zonisamide 100 MG Capsule PO (08:53)
[2023-06-03] MEDS: ARIPiprazole 10 mg Tablet PO (08:53)
[2023-06-03] MEDS: docusate sodium 100 mg Capsule PO (08:53)
[2023-06-03] MEDS: pantoprazole DR 40 mg Tablet PO (08:53)
[2023-06-03] MEDS: duloxetine 30 mg Capsule PO (08:53)
[2023-06-03] MEDS: lisinopril 10 mg Tablet PO (08:53)
[2023-06-03] MEDS: omega-3 fatty acids 1,000 mg Capsule 1000 MG PO (08:53)
[2023-06-03] MEDS: FUROsemide 40 mg Tablet PO (09:05)
[2023-06-03] MEDS: silver sulfadiazine cream 1% 50 gm 1 APPLIC TOPICAL (09:06)
[2023-06-03] MEDS: nystatin cream 30 gm 1 APPLIC TOPICAL (09:07)
[2023-06-03 09:50] LABS: SARS Covid-2 Antigen negative (Negative)
[2023-06-03 10:00] VITALS: BP 106/66; PULSE 64; RESP 16; TEMP 36.6; O2SAT 96
[2023-06-03] MEDS: fluconazole premix 200 MG/100 ML PREMIX 100 MG IV (10:30)
[2023-06-03] MEDS: acetaminophen 325 mg Tablet 650 MG PO (10:33)
[2023-06-03] MEDS: apixaban 5 mg Tablet PO (11:13)
--- NOTE | 2023-06-03 11:23 | PM.DCS ---
Discharge Providers Date of Admission: 05/28/23 16:13 Date of Discharge: June 03, 2023 Attending Provider at Admission: Jalen Roberson DO Attending Provider at Discharge: Medardo Price MD Primary Care Provider: ERIKA Jordan Diagnoses at Discharge Discharge Diagnosis (1) Mobitz (type) II atrioventricular block: Status: Acute (2) Atrial fibrillation with slow ventricular response: Status: Acute (3) Essential (primary) hypertension: Status: Chronic (4) Recurrent UTI: Status: Acute Reason for Visit Reason for Visit: ams with weakness Hospital Course Hospital Course Rosalva Hyatt is a 83 year old female resides at assisted living. Patient is wheelchair-bound. She sleeps in her recliner. Daughter visits her approximately twice a week. She has been showing signs of forgetfulness and memory loss and the family also reports depression and loneliness. The patient reports that she went to the bathroom and had trouble transferring back to the wheelchair. She felt extremely tired and that she just wanted to sleep. She felt that she just slumped over. She did not fall. She denies chest pain or shortness of breath. She does have some lower abdominal pain and admits to difficulty urinating. Patient was admitted to [facility] for symptomatic bradycardia Mobitz type II, status post pacemaker placement, tolerated procedure well, discharged to nursing home facility, discharged on doxycycline and Flagyl for antibiotic coverage For patient's history of [place] glabrata UTI, discharged on 12 remaining days of Diflucan Patient had a rash on her chest on discharge, likely related to adhesive tape, contact dermatitis, erythematous, nonblanching, irregular borders, measuring 2 x 3 cm, with pruritus, no discharge, discharged with hydrocortisone cream, can use topical Benadryl, continue to monitor Physical Exam Const: COMMON NORMALS: no acute distress and patient oriented x3 Resp: COMMON NORMALS: normal respiratory effort, No retractions, No use of accessory muscles and clear to auscultation bilaterally AUSCULTATION: clear to auscultation bilaterally Cardio: COMMON NORMALS: regular rate, regular rhythm, S1 normal heart sound present and S2 normal heart sound present RATE: regular rate RHYTHM: regular rhythm HEART SOUNDS: S1 normal heart sound present and S2 normal heart sound present GI: COMMON NORMALS: Normal to inspection, nondistended, normoactive bowel sounds present and non-tender Extremity: COMMON NORMALS: no pedal edema Neuro: COMMON NORMALS: patient oriented x3 Psych: COMMON NORMALS: mental status grossly normal Urinary Catheter Management: Guillen: Cath Placed During This Visit: yes, but has since been removed by the nurse Reason for Continuing Indwelling Catheter: Accurate Measurement of Urinary Output in Critically Ill Patients Urinary Catheter Date of Insertion: 05/29/23 Urinary Catheter Time of Insertion: 02:15 Date Urinary Catheter Removed: 06/02/23 Time Urinary Catheter Discontinued: 17:30 Discharge Data Studies Completed and Pending Completed Studies During Hospitalization Category Date Time Status CT head wo con* [id number] Stat Cat Scan 05/28/23 13:16 Completed MUSHROOM CUTTER request for service Routine Exams 06/01/23 08:07 Completed XR chest 1V portable [id number] Routine Exams 05/31/23 10:35 Completed XR chest 1V portable [id number] Routine Exams 06/02/23 07:23 Completed XR chest 1V portable [id number] Stat Exams 05/28/23 13:16 Completed CV. echo complete* [id number] Routine Ultrasound 05/31/23 10:37 Completed Pending at discharge Category Date Time Status Basic Metabolic Panel AM LABS Lab 06/04/23 04:00 Ordered Basic Metabolic Panel AM LABS Lab 06/05/23 04:00 Ordered Blood Culture Stat Lab 05/31/23 11:10 Results Complete Blood Count w/Auto AM LABS Lab 06/04/23 04:00 Ordered Complete Blood Count w/Auto AM LABS Lab 06/05/23 04:00 Ordered Radiology Impressions Chest X-Ray 06/02/23 07:23 IMPRESSION: 1. Pacemaker as above. 2. Nodular density which projects on the right is presumably artifactual, consider a chest CT if clinically warranted. Laboratory Results WBC 7.08 10^3/uL (3.29-11.43) 06/03/23 05:23 RBC 3.76 10^6/uL (3.85-5.65) L 06/03/23 05:23 Hgb 11.20 g/dL (11.27-16.99) L 06/03/23 05:23 Hct 35.6 % (36-47) L 06/03/23 05:23 MCV 94.7 fl (85-98) 06/03/23 05:23 MCH 29.8 pg (27-33) 06/03/23 05:23 MCHC 31.5 g/dL (30-55) 06/03/23 05:23 RDW 13.0 % (12.1-15.1) 06/03/23 05:23 Plt Count 160 10^3/cmm (157-399) 06/03/23 05:23 MPV 10.3 fL (7.4-10.4) 06/03/23 05:23 Neut % (Auto) 65.3 % 06/03/23 05:23 Lymph % (Auto) 20.1 % 06/03/23 05:23 Cotton % (Auto) 11.6 % 06/03/23 05:23 Eos % (Auto) 2.0 % 06/03/23 05:23 Baso % (Auto) 0.7 % 06/03/23 05:23 Neut # (Auto) 4.63 10^3/uL (1.8-7.7) 06/03/23 05:23 Lymph # (Auto) 1.4 10^3/uL (0.8-4.8) 06/03/23 05:23 Cotton # (Auto) 0.8 10^3/uL (0.2-0.9) 06/03/23 05:23 Eos # (Auto) 0.1 10^3/uL (0.0-0.8) 06/03/23 05:23 Baso # (Auto) 0.1 10^3/uL (0.0-0.1) 06/03/23 05:23 Nucleated RBC % (auto) 0 % 06/03/23 05:23 Nucleated RBCs # 0.0 /100WBC 06/03/23 05:23 Sodium 143 mmol/L (136-145) 06/03/23 05:23 Potassium 4.0 mmol/L (3.5-5.1) 06/03/23 05:23 Chloride 105 mmol/L (98-107) 06/03/23 05:23 Carbon Dioxide 28 mmol/L (22-29) 06/03/23 05:23 Anion Gap 14.0 (5-19) 06/03/23 05:23 BUN 32 mg/dL (8-23) H 06/03/23 05:23 Creatinine 0.9 mg/dL (0.5-0.9) 06/03/23 05:23 GFR Calculation Not Reportable 06/03/23 05:23 Glucose 123 mg/dL (65-115) H 06/03/23 05:23 Calculated Osmolality 304 mOsm/kg (285-295) H 06/03/23 05:23 Calcium 10.2 mg/dL (8.5-10.5) 06/03/23 05:23 Phosphorus 3.5 mg/dL (2.5-4.5) 06/02/23 04:25 Magnesium 1.8 mg/dL (1.7-2.3) 06/02/23 04:25 Total Bilirubin 0.3 mg/dL (0.15-1.2) 06/02/23 04:25 AST 17 U/L (0-32) 06/02/23 04:25 ALT 15 U/L (0-33) 06/02/23 04:25 Alkaline Phosphatase 85 U/L (35-105) 06/02/23 04:25 Troponin T Baseline 29 ng/L (0-10) H 05/28/23 14:07 Troponin T 120 Minute 28.53 ng/L (0-10) H 05/28/23 15:35 Delta Troponin T -0.47 ABS# (0-10) L 05/28/23 15:35 Troponin T Hi Sens 6Hr 31.73 ng/L (0-10) H 05/28/23 20:01 Troponin T Hi Sens 6Hr Delta 2.73 ng/L (0-12) 05/28/23 20:01 C-Reactive Protein 4.2 mg/L (0.0-4.9) 06/02/23 04:25 Total Protein 5.3 g/dL (6.6-8.7) L 06/02/23 04:25 Albumin 3.3 g/dL (3.5-5.2) L 06/02/23 04:25 Globulin 2.0 g/dL (1.3-4.6) 06/02/23 04:25 Procalcitonin 0.08 ng/mL (0-0.5) 06/02/23 04:25 TSH 0.12 uIU/mL (0.27-4.20) L 05/28/23 14:07 Urine Color Yellow (Yellow) 05/31/23 09:10 Urine Appearance Clear (CLEAR) 05/31/23 09:10 Urine pH 5 (5-7) 05/31/23 09:10 Ur Specific [place] 1.015 (1.005-1.030) 05/31/23 09:10 Urine Protein 1+ (Negative) H 05/31/23 09:10 Urine Glucose (UA) Norm (Normal) 05/31/23 09:10 Urine Ketones Negative (Negative) 05/31/23 09:10 Urine Blood 3+ (Negative) H 05/31/23 09:10 Urine Nitrate Negative (Negative) 05/31/23 09:10 Urine Bilirubin Neg (Negative) 05/31/23 09:10 Urine Urobilinogen Norm mg/dL (Negative) 05/31/23 09:10 Ur Leukocyte Esterase 2+ (Negative) H 05/31/23 09:10 Urine RBC 15-25 /hpf (0-2) H 05/31/23 09:10 Urine WBC 25-40 /hpf (0-5) H 05/31/23 09:10 Ur Squamous Epith Cells Rare /hpf (0-5) 05/31/23 09:10 Ur Transition Epith Cell 0-4 /hpf 05/28/23 13:40 Amorphous Sediment Not Reportable 05/31/23 09:10 Urine Bacteria 1+ /hpf (NONE) H 05/31/23 09:10 Urine Mucus Trace /hpf 05/28/23 13:40 Urine Yeast 2+ /hpf H 05/28/23 13:40 SARS-CoV-2 Ag (Rapid) negative (Negative) 06/03/23 08:58 Vitals Last Vital Signs Temp 97.8 F 06/03/23 10:00 Pulse 64 06/03/23 10:00 Resp 16 06/03/23 10:00 BP 106/66 06/03/23 10:00 Pulse Ox 96 06/03/23 10:00 O2 Del Method Room Air 06/03/23 10:00 O2 Flow Rate 2 05/31/23 04:00 Discharge Plan Discharge Patient Disposition: Xfer SNF Condition: Stable Prescriptions: New hydrocortisone 1 % cream 1 applic topical DAILY PRN (Reason: itching/rash) Qty: 28.35 0RF polyethylene glycol 3350 [Miralax] 17 gram powder in packet 17 g PO DAILY PRN (Reason: constipation) 30 Days Qty: 30 0RF metronidazole 500 mg tablet 500 mg PO Q8H 5 Days Qty: 15 0RF fluconazole [Diflucan] 200 mg tablet 200 mg PO DAILY 12 Days Qty: 12 0RF doxycycline hyclate 100 mg tablet 100 mg PO BID 5 Days Qty: 10 0RF Continued Vagisil 5-2 % cream 1 applic topical BID@08,20 Eliquis 5 mg tablet 5 mg PO BID@08,20 omeprazole 20 mg capsule,delayed release(DR/EC) 20 mg PO DAILY@08 acetaminophen [Tylenol Extra Strength] 500 mg tablet 500 - 1,000 mg PO .EVERY 4-6 HOURS PRN (Reason: Pain) Lactobacillus acidophilus [Acidophilus] Capsule 1 cap PO BID@08,20 (DME) heavy duty wheelchair (K0006) See Rx Instructions .Route .MEDSUPPLY Qty: 1 0RF Rx Instructions: As directed fluticasone propionate [Flonase Allergy Relief] 50 mcg/actuation spray,suspension 1 spray intranasal Q12H Qty: 16 2RF Rx Instructions: administer into each nostril methenamine hippurate 1 gram tablet 1 g PO Q12H Qty: 60 5RF Rx Instructions: take with Vitamin C 2 times day. 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 99 months Hair,Skin and Nails Tablet 1 tab PO DAILY@08 Qty: 30 5RF hydrocortisone 1 % Cream 1 applic TOPICAL BID PRN (Reason: unknown) omega-3 fatty acids [Fish Oil Concentrate] 1,000 mg Capsule 1,000 mg PO BID@08,20 Dulcolax (magnesium hydroxide) 400 mg/5 mL Suspension 30 - 60 ml PO DAILY PRN (Reason: Constipation) Probiotic Blend 2 billion cell-50 mg Capsule 1 cap PO BID@08,20 furosemide 40 mg tablet 40 mg PO BID@08,14 sennosides-docusate sodium [Senna-S] 8.6-50 mg tablet 1 tab-cap PO DAILY@08 zonisamide 100 mg capsule 100 mg PO BID@08,20 magnesium hydroxide [Milk of Magnesia] 400 mg/5 mL suspension 15 ml PO DAILY@08 Rx Instructions: Do NOT use anti diarrhea medication levothyroxine 125 mcg tablet 125 mcg PO DAILY@06 nystatin 100,000 unit/gram cream 1 applic topical TID@08,14,20 Rx Instructions: apply for 10 days mupirocin 2 % ointment 1 applic topical BEDTIME@20 aripiprazole [Abilify] 10 mg tablet 10 mg PO DAILY@08 duloxetine 30 mg capsule,delayed release(DR/EC) 30 mg PO BID@08,20 potassium chloride 20 mEq tablet extended release 20 meq PO BID@08,20 ascorbic acid (vitamin C) 1,000 mg capsule 1,000 mg PO Q12H Rx Instructions: @08,20 silver sulfadiazine 1 % cream 1 applic TOPICAL BID@08,17 Rx Instructions: apply to bilateral breast and abdomen until healed Changed lisinopril 5 mg tablet 5 mg PO DAILY 30 Days Qty: 30 0RF Discontinued cefdinir 300 mg capsule 300 mg PO Q12H Rx Instructions: for 14 days (written 05/20/23) Discharge Orders: Discharge Order (Routine); Ordered 06/03/23 Ordered By: Medardo Price Referrals: [facility] [Outside] Jayce Dickson MD [Physician] - 2 weeks Jaciel Nelson, [employer] [Primary Care Provider] - Discharge Diet: Cardiac Discharge Activity: Resume usual activity Patient Instructions: Altered Mental Status (ED), Opioid Safety Discharge Attestations Time Spent in Discharge Care*: greater than 30 min Quality Metrics Clinical Quality Measures [ No reported AMI, CVA or VTE this stay] Coding Level of Care Code 92018 Total time (in minutes) for Discharge: 45 Diagnoses Mobitz (type) II atrioventricular block I44.1 Atrial fibrillation with slow ventricular response I48.91 Essential (primary) hypertension I10 Recurrent UTI N39.0
[2023-06-03 14:26] VITALS: BP 106/66; PULSE 64; RESP 16; TEMP 36.6; O2SAT 96
== END 2023-06-03 13:55 | disposition skilled nursing facility (03) | DRG 243 ==
LOC: ER 16:00 → ICU 16:28 → MEDSURG 06-02 21:21
PROVIDERS: Internal Medicine; Internal Medicine Cardiovascular Disease; Admitting Provider Internal Medicine; Emergency Provider Family Medicine; PCP Nurse Practitioner; Visit Provider Family Medicine
PROC: 0JH604Z Insertion of Pacemaker, Single Chamber into Chest Subcutaneous Tissue and Fascia, Open Approach (ICD-10-PCS; principal; 2023-06-01 07:35)
DX: I44.1 Atrioventricular block, second degree (principal); B37.49 Other urogenital candidiasis; R00.1 Bradycardia, unspecified; I48.20 Chronic atrial fibrillation, unspecified; E66.9 Obesity, unspecified; M51.36 Other intervertebral disc degeneration, lumbar region; G25.81 Restless legs syndrome; E03.9 Hypothyroidism, unspecified; I10 Essential (primary) hypertension; F41.9 Anxiety disorder, unspecified; F32.A Depression, unspecified; Z11.52 Encounter for screening for COVID-19; Z79.01 Long term (current) use of anticoagulants; Z68.35 Body mass index [BMI] 35.0-35.9, adult; Z87.440 Personal history of urinary (tract) infections; Z99.3 Dependence on wheelchair
CPT/HCPCS: 33207; 36415; 51702; 70450; 71045; 80048; 80053; 81001; 83735; 84100; 84145; 84443; 84484; 85025; 86140; 87040; 87086; 87106; 87426; 93005; 93306; 96365; 96372; 96374; 96375; 96376; 97110; 97162; 97165; 97530; 99152; 99153; 99285; A4216; C1769; C1786; C1894; C1898; J0696; J1450; J1644; J2185; J2250; J3010; J3370; J7030; J7050; Q3014; Q9967

== ENCOUNTER → 2023-06-16 15:09 | Outpatient (BNVA) | payer MEDICARE, MEDICAID, SELFPAY | PROVIDERS: PCP Nurse Practitioner; Visit Provider Nurse Practitioner Family | DX: Z95.0 Presence of cardiac pacemaker (principal) | CPT/HCPCS: 99024; 99213 ==

== ENCOUNTER → 2023-10-14 15:11 | Outpatient (BNVA) | payer MEDICARE, MEDICAID, SELFPAY | PROVIDERS: PCP Nurse Practitioner; Visit Provider Internal Medicine | DX: I49.5 Sick sinus syndrome (principal); I10 Essential (primary) hypertension; R60.9 Edema, unspecified; I48.91 Unspecified atrial fibrillation; E11.9 Type 2 diabetes mellitus without complications; E03.8 Other specified hypothyroidism | CPT/HCPCS: 99214 ==

== ENCOUNTER → 2024-04-20 15:09 | Outpatient (BNVA) | payer MEDICARE, SELFPAY | PROVIDERS: PCP Nurse Practitioner; Visit Provider Internal Medicine | DX: I10 Essential (primary) hypertension (principal); R60.9 Edema, unspecified; I48.91 Unspecified atrial fibrillation; E11.9 Type 2 diabetes mellitus without complications; E03.8 Other specified hypothyroidism; I49.5 Sick sinus syndrome; Z95.0 Presence of cardiac pacemaker; Z79.01 Long term (current) use of anticoagulants | CPT/HCPCS: 99214 ==

== ENCOUNTER → 2024-07-05 10:31 | Outpatient (BNVA) | payer MEDICARE, SELFPAY | PROVIDERS: PCP Nurse Practitioner; Visit Provider Internal Medicine Cardiovascular Disease | DX: Z45.018 Encounter for adjustment and management of other part of cardiac pacemaker (principal) | CPT/HCPCS: 93296 ==

== ENCOUNTER → 2024-10-25 09:47 | Outpatient (BNVA) | payer MEDICARE, MEDICAID, SELFPAY | PROVIDERS: PCP Nurse Practitioner; Visit Provider Internal Medicine Cardiovascular Disease | DX: Z45.018 Encounter for adjustment and management of other part of cardiac pacemaker (principal) | CPT/HCPCS: 93296 ==

== ENCOUNTER → 2024-11-02 12:44 | Outpatient (BNVA) | payer MEDICARE, MEDICAID, SELFPAY | PROVIDERS: PCP Nurse Practitioner; Visit Provider Internal Medicine | DX: I48.91 Unspecified atrial fibrillation (principal); Z79.01 Long term (current) use of anticoagulants; I10 Essential (primary) hypertension; R60.0 Localized edema; E11.9 Type 2 diabetes mellitus without complications; E03.9 Hypothyroidism, unspecified; I49.5 Sick sinus syndrome; Z95.5 Presence of coronary angioplasty implant and graft | CPT/HCPCS: 99214 ==

== ENCOUNTER → 2025-01-24 10:48 | Outpatient (BNVA) | payer MEDICARE, MEDICAID, SELFPAY | PROVIDERS: PCP Nurse Practitioner; Visit Provider Internal Medicine | DX: Z45.018 Encounter for adjustment and management of other part of cardiac pacemaker (principal) | CPT/HCPCS: 93296 ==